=== PATIENT | male | born 1950 | race American Indian/Alaskan Native ===

== ENCOUNTER 2016-09-14 02:34 | Emergency (ER) | payer MEDICARE ==
[2016-09-14] MEDS: TYLENOL PO ONE (03:57)
[2016-09-14 04:00] LABS: Eosinophils % (Auto) 2.3 % (0.0-4.3); Hematocrit 42.3 % (35.5-45.6); Hemoglobin 13.8 gm/dl (11.8-15.2); Mean Corpuscular HGB Conc 33 % (32-34); Mean Corpuscular Hemoglobin 29 pg (28-32); Mean Corpuscular Volume 89 fl (84-94); Platelet Count 160 K/mm3 (140-440); Red Blood Count 4.78 M/mm3 (3.65-5.03); White Blood Count 4.9 K/mm3 (4.5-11.0)
[2016-09-14 04:13] LABS: Anion Gap 17 mmol/L; BUN/Creatinine Ratio 13.07; Blood Urea Nitrogen 17 mg/dL (9-20); Calcium 9.1 mg/dL (8.4-10.2); Carbon Dioxide 24 mmol/L (22-30); Chloride 101.4 mmol/L (98-107); Glucose 112 mg/dL (75-100); Potassium 3.8 mmol/L (3.6-5.0); Sodium 139 mmol/L (137-145)
--- NOTE | 2016-09-14 09:49 | Emergency Department Report ---
HPI - General Chief Complaint: Chest Pain Time Seen by Provider: 09/14/16 09:19 - HPI HPI: This is a 66-year-old Afro-[place] male presents the emergency department from home with a few complaints. Patient complains of presents with worsening right lower extremity phantom pain where he has a below-knee amputation. It was amputated in the past secondary to vascular insufficiency as he had previous stents in the leg. Patient has pain where his ankle would have been. He did not take anything for his discomfort prior to presentation. He also complains of a small amount of swelling to the left lower extremity around the ankle and bottom of the wilkins going on for the past few days as well. Finally patient complains of some generalized chest pain since yesterday. He has a past medical history of COPD without oxygen dependency, hypertension, high cholesterol, coronary artery disease with stents. He is in between primary care physicians at this time. His dental hygienist is through [facility]. No recent travel or sick contacts at home. ED Past Medical Hx - Past Medical History Hx Hypertension: Yes Hx COPD: Yes Additional medical history: High Cholesterol. angina/cardiac stents - Surgical History Hx Coronary Stent: Yes Additional Surgical History: Rt BKA. Cardiac Stents placed - Social History Smoking Status: Never Smoker Substance Use Type: None - Medications Home Medications: Home Medications Medication Instructions Recorded Confirmed Last Taken Type Nitroglycerin [Nitrostat] 0.4 mg SL Q5M 04/16/14 09/14/16 09/19/15 History 0.4mg Furosemide [Lasix] 40 mg PO DAILY #30 tablet 04/19/14 09/14/16 09/19/15 Rx 40mg Aspirin EC [Aspirin Enteric Coated 325 mg PO QDAY 09/19/15 09/14/16 09/19/15 History TAB] 325mg Carvedilol [Coreg] 25 mg PO BID 09/19/15 09/14/16 09/19/15 History 25mg Lisinopril [Zestril TAB] 20 mg PO QDAY 09/19/15 09/14/16 09/19/15 History 30mg AtorvaSTATin [Lipitor] 40 mg PO DAILY 02/07/16 09/14/16 Unknown History oxyCODONE /ACETAMINOPHEN [Percocet 1 tab PO Q6HR PRN #20 tablet 02/07/16 Unknown Rx 5/325] HYDROcodone/APAP 5-325 [Lakeside 1 each PO Q6HR PRN #12 tablet 09/14/16 Unknown Rx 5/325] Potassium 20 mg PO DAILY 09/14/16 09/14/16 Unknown History ED Review of Systems ROS: Stated complaint: CHEST/LEG PAIN Other details as noted in HPI Comment: All other systems reviewed and negative Constitutional: denies: chills, fever Eyes: denies: eye pain, eye discharge, vision change ENT: denies: ear pain, throat pain Respiratory: denies: cough, shortness of breath, wheezing Cardiovascular: chest pain, edema. denies: palpitations Gastrointestinal: denies: abdominal pain, nausea, diarrhea Genitourinary: denies: urgency, dysuria Musculoskeletal: arthralgia, myalgia. denies: back pain Skin: denies: rash, lesions Neurological: denies: headache, weakness, paresthesias Physical Exam - Physical Exam Vital Signs: Vital Signs 09/14/16 09/14/16 09/14/16 02:52 03:57 08:15 Temperature 98.8 F Pulse Rate 105 H Respiratory 18 20 Rate Blood Pressure 192/101 O2 Sat by Pulse 99 100 Oximetry 09/14/16 09/14/16 08:20 08:27 Temperature 98.2 F Pulse Rate 107 H Respiratory 14 Rate Blood Pressure 217/94 O2 Sat by Pulse 100 Oximetry Physical Exam: GENERAL: The patient is well-developed well-nourished. HEENT: Normocephalic. Atraumatic. Extraocular motions are intact. Patient has moist mucous membranes. Pupils equal reactive to light bilaterally. NECK: Supple. Trachea is midline. CHEST/LUNGS: Clear to auscultation. There is no respiratory distress noted. HEART/CARDIOVASCULAR: Regular. There is no tachycardia. There is no gallop rub or murmur. ABDOMEN: Abdomen is soft, nontender. Patient has normal bowel sounds. There is no abdominal distention. SKIN: There is no rash. There is no diaphoresis. NEURO: The patient is awake, alert, and oriented. The patient is cooperative. The patient has no focal neurologic deficits. The patient has normal speech. MUSCULOSKELETAL: There is no tenderness or deformity. Chronic right below-knee amputation. There is no limitation range of motion. There is no evidence of acute injury. ED Course Vital Signs 09/14/16 09/14/1609/14/17 02:52 03:57 08:15 Temperature 98.8 F Pulse Rate 105 H Respiratory 18 20 Rate Blood Pressure 192/101 O2 Sat by Pulse 99 100 Oximetry 09/14/16 09/14/16 08:20 08:27 Temperature 98.2 F Pulse Rate 107 H Respiratory 14 Rate Blood Pressure 217/94 O2 Sat by Pulse 100 Oximetry ED Medical Decision Making - Lab Data Result diagrams: 09/14/16 03:47 09/14/16 03:47 - EKG Data -: EKG Interpreted by Me EKG shows normal: sinus rhythm, axis, intervals, QRS complexes, ST-T waves (T- wave inversions to the lateral leads) Rate: normal - EKG Data When compared to previous EKG there are: no significant change Interpretation: unchanged when compared t (02/07/16) - Radiology Data Radiology results: report reviewed, image reviewed interpreted by me: Chest x-ray did not show any acute process. Heart is normal shape and size. No effusions. No pneumothorax. No signs of pneumonia seen. Left lower extremity venous Doppler is negative for DVT. VQ scan is negative for pulmonary embolism. - Medical Decision Making 66-year-old male presents to the emergency department with right lower extremity phantom limb pain, questionable left lower extremity swelling around the ankle, and some chest pain. The phantom limb pain was treated with IV pain medication with good relief. It still comes back but is greatly improved. I could not appreciate any significant left lower extremity swelling but the patient was sent for a venous Doppler to rule out a DVT and the venous Doppler was in fact negative for DVT. The patient's chest pain was evaluated with an EKG, chest x-ray and troponins. The EKG was unchanged from previous and did not show any acute ST elevation AL. The chest x-ray did not show any acute process. Patient's labs included negative troponins 3. He had a an elevated d -dimer so a VQ scan was done that was negative for pulmonary embolism. Patient' s chest pain is completely resolved at the beginning of his workup and he has been reevaluated multiple times over multiple hours and it has not returned. Due to the patient's most recent heart catheterization suggesting that the patient needs evaluation by a cardiothoracic surgeon due to triple-vessel disease, I contacted the patient's cardiology group. They say the patient is very compliant with his follow-ups and the PA has set him up for an appointment this Tuesday at 1:[address] Newell. All this information has been given to the patient. He says he is greatly improved and ready for discharge home. I do believe that the patient is safe for discharge home at this time. He understands to return to the emergency department with any worsening of symptoms or any acute distress. - Differential Diagnosis AL, PE, DVT, phantom limb syndrome Critical Care Time: No Critical care attestation.: If time is entered above; I have spent that time in minutes in the direct care of this critically ill patient, excluding procedure time. ED Disposition Clinical Impression: Phantom limb pain Hypertension Qualifiers: Hypertension type: essential hypertension Qualified Code(s): I10 - Essential ( primary) hypertension Chest pain Qualifiers: Chest pain type: unspecified Qualified Code(s): R07.9 - Chest pain, unspecified Disposition: DISCHARGED TO HOME OR SELFCARE Is pt being admited?: No Condition: Stable Instructions: Chest Pain (ED), Hypertension (ED) Additional Instructions: We have made to an appointment to see a dental hygienist at [facility], Dr. Newell, on Tuesday at 1:30 PM. It is also recommended that he follow-up with your primary care doctor. I have prescribed use some pain medication for your right leg pain. You've been prescribed a medication that is sedating. Therefore this medication cannot be mixed with alcohol, or taken prior to driving, working, or being responsible for children. Return to the emergency department with any worsening of your symptoms or any acute distress. Prescriptions: HYDROcodone/APAP 5-325 [Lakeside 5/325] 1 each PO Q6HR PRN #12 tablet PRN Reason: Pain Referrals: PRIMARY CAREMD [Primary Care Provider] - 3-5 Days LLOYD CARIAS MD [Staff Physician] - 09/17/16 1:30 pm Time of Disposition: 14:04
--- NOTE | 2016-09-14 10:11 | XRay Report ---
AP CHEST: HISTORY: chest pain AP view of the chest demonstrates a normal mediastinal and cardiac contour with clear lungs and normal bony and soft tissue structures. IMPRESSION: Unremarkable AP chest.
[2016-09-14] MEDS: MORPHINE IV ONE ×2 (10:20→13:05)
[2016-09-14] MEDS: NACL ONE (11:17)
[2016-09-14] MEDS: ZESTRIL PO ONE (12:12)
[2016-09-14] MEDS: COREG PO ONE (12:12)
--- NOTE | 2016-09-14 12:49 | Nuclear Medicine Report ---
LUNG SCAN, VENTILATION AND PERFUSION: Inhalation of Xenon gas demonstrates a normal distribution of the activity throughout both lungs. The wash out phases show no focal retention of activity. After injection of Technetium 99m macroaggregated albumin gamma camera imaging of the lungs in multiple projections demonstrates normal pulmonary contours with a homogeneous distribution of activity. No focal areas of perfusion deficiency are identified. IMPRESSION: Normal study.
[2016-09-14 13:29] VITALS: BP 166/74
--- NOTE | 2016-09-14 13:43 | Admit Criteria Form ---
Admission Criteria Documentation: CHEST PAIN Clinical Indications for Admission to Inpatient Care (Place 'X' for any and all applicable criteria): Admission is indicated for chest pain and ANY ONE of the following(1)(2)(3)(4)(5 ): [ ]I. Angina with acute coronary syndrome (Also use Myocardial Infarction or Angina guideline) [ ]II. Hemodynamic instability [ ]III. Angina needing acute intervention as indicated by ALL of the following( 11)(12): [ ]a) Unstable angina is present as indicated by angina that is ANY ONE of the following: [ ]i) New onset [ ]ii) Nocturnal [ ]iii) Prolonged at rest [ ]iv) Progressive [ ]b) Angina warrants acute intervention as indicated by ANY ONE of the following: [ ]i) Recurrent angina (e.g, not responding as previously to treatment) [ ]ii) Angina at rest or with low-level activities despite initial medical therapy [ ]iii) New or presumably new ST-segment depression on ECG [ ]iv) Signs or symptoms of heart failure (eg, dyspnea, pulmonary edema) [ ]v) New or worsening mitral regurgitation [ ]vi) Hemodynamic instability [ ]vii) Dangerous arrhythmia (eg, sustained ventricular tachycardia) [ ]viii) History of percutaneous coronary intervention within 6 months [ ]ix) History of coronary artery bypass graft surgery [ ]x) VICKI risk score of 2 or greater[A] [ ]xi) History of Diabetes(14) [ ]xii) High-risk cardiac ischemia findings on noninvasive testing (e.g, echocardiogram, treadmill testing, nuclear scan) [ ]xiii) Chronic renal insufficiency (ie, estimated GFR less than 60 mL/min/1.732m) [ ]xiv) Left ventricular ejection fraction less than 40% [ ]IV. Evidence of NM (eg, cardiac biomarkers positive, ST-segment elevation on ECG) also use Myocardial Infarction Criteria Form. [ ]V. Pulmonary edema [ ]. Respiratory distress [ ]VII. Chest pain indicative of serious diagnosis other than coronary artery disease (eg, aortic dissection) [ ]VIII. Contraindications and/or Inappropriate clinical situations for Observational Care in patients with Chest Pain, when ANY ONE of the following is required: [ ]a) Patient with risk factor for pulmonary embolism, acute coronary syndrome and myocardial infarction (18) [ ]b) Patient with Pulmonary embolism require an average LOS of 4.3 days, therefore emergency department observation management is inappropriate 18,23 [ ]c) Painful condition/s in the elderly, have the highest rate of recidivism after emergency department observation management (10.8%) 20,21,22 [ ]d) Elevated cardiac biomarker requires intensive and exhaustive care (19) [ ]IX. General contraindications and/or Inappropriate clinical situations for Observational Care in patients with Chest Pain, when ANY ONE of the following is required: [ ]a) Prediction of prolongation of LOS based on ANY ONE of the following may be considered as a contraindication for observational care 2, 3, 4, 5, 6, 7, 8, 9, 10, 11 [ ]i) Age > 65 yrs. [ ]ii) Patient arriving by ambulance [ ]iii) Patient with high acuity [ ]iv) Patient requiring vital sign monitoring [ ]v) Patient on IV medication [ ]b) Systolic blood pressures 180mmHg 3,12 [ ]c) Patient with altered mental status including delirium and other alteration of consciousness, (3) [ ]d) Patient whose discharge disposition will be to a [place] [facility] home or rehabilitation home should not be managed in Emergency Department Observation Unit. CMS rule requires 3 days hospital stay before such placement. 3,13 [ ]e) Patient with failure to thrive due to broad array of etiologies 3,16,17 [ ]f) Inability to ambulate 3,14 Extended stay beyond goal length of stay may be needed for (1)(28): [ ]a) Specific condition diagnosed after evaluation (eg, pulmonary embolism, aortic dissection) [ ]b) Unstable angina [ ]c) Continued suspicion of acute coronary syndrome with inability to complete needed cardiac evaluation (eg, patient clinically unable to undergo stress testing) [ ]d) Myocardial infarction (Contents from ANGINA and CHEST PAIN clinical indications for admission to inpatient care have been integrated in this form) The original [employer] content created by [employer] has been revised. The portions of the content which have been revised are identified through the use of italic text or in bold, and [employer] [facility] has neither reviewed nor approved the modified material. All other unmodified content is copyright [employer]. Please see references footnoted in the original [employer] edition 2016
--- NOTE | 2016-09-15 08:22 | Vascular Lab Report ---
Left Lower Extremity Venous Duplex Study: Reason for Exam: Left leg pain. Comments on the Right: A limited duplex study was done of the proximal veins of the right lower extremity. All veins visualized are freely compressible without evidence of internal echogenicity. Flow is spontaneous and phasic throughout. No evidence of acute or chronic thrombus is seen in any of the vessels visualized. Comments on the Left: All veins visualized are freely compressible without evidence of internal echogenicity. Flow is spontaneous and phasic throughout. No evidence of acute or chronic thrombus is seen in any of the vessels visualized. Impression: No evidence of acute or chronic deep venous thrombosis in the left lower extremity.
== END 2016-09-14 14:33 | disposition home or self-care (01) ==
LOC: ED 02:34
DX: G54.6 Phantom limb syndrome with pain (principal); I10 Essential (primary) hypertension; R07.89 Other chest pain; J44.9 Chronic obstructive pulmonary disease, unspecified; E78.00 Pure hypercholesterolemia, unspecified; Z95.5 Presence of coronary angioplasty implant and graft; Z79.82 Long term (current) use of aspirin
CPT/HCPCS: 36415; 71010; 78582; 80048; 84484; 85025; 85379; 93005; 93010; 93971; 96374; 96376; 99285; A9540; A9558; J2270

== ENCOUNTER 2016-12-07 21:01 | Inpatient (IN) | payer MEDICARE ==
[2016-12-07 21:39] LABS: Hematocrit 42.6 % (35.5-45.6); Mean Corpuscular HGB Conc 33 % (32-34); Mean Corpuscular Hemoglobin 29 pg (28-32); Mean Corpuscular Volume 88 fl (84-94); Platelet Count 236 K/mm3 (140-440); Red Blood Count 4.86 M/mm3 (3.65-5.03); White Blood Count 16.4 K/mm3 (4.5-11.0)
[2016-12-07 22:00] LABS: Anion Gap 21 mmol/L; BUN/Creatinine Ratio 29.28; Blood Urea Nitrogen 41 mg/dL (9-20); Calcium 9.6 mg/dL (8.4-10.2); Carbon Dioxide 23 mmol/L (22-30); Chloride 101.5 mmol/L (98-107); Glucose 120 mg/dL (75-100); Potassium 3.8 mmol/L (3.6-5.0); Sodium 142 mmol/L (137-145)
[2016-12-07 22:40] LABS: Basophils % (Manual) 0 % (0.0-1.8); Blastocytes % (Manual) 0 %; Eosinophils % (Manual) 0 % (0.0-4.3)
[2016-12-07 22:42] LABS: RBC Morphology Normal
[2016-12-07 22:43] LABS: Diff Status Complete; Platelet Estimate Consistent w Auto
[2016-12-08 01:48] LABS: Bilirubin,Urine NEG (Negative); Blood,Urine NEG (Negative); Ketones,Urine NEG (Negative); Leukocyte Esterase,Urine NEG (Negative); Mucus,Urine FEW /HPF; Nitrite,Urine NEG (Negative); Protein,Urine <15 mg/dL mg/dL (Negative); Urobilinogen,Urine < 2.0 mg/dL (<2.0)
[2016-12-08] MEDS ORDERED: NACL 0.9% 500 ML 500 ML IV ONE (01:57)
[2016-12-08] MEDS ORDERED: TORADOL IV ONE (01:57)
[2016-12-08] MEDS ORDERED: DILAUDID IV ONE (01:57)
--- NOTE | 2016-12-08 02:00 | Emergency Department Report ---
ED General Adult HPI - General Chief complaint: Extremity Problem,Nontraumatic Stated complaint: LEG PAIN Time Seen by Provider: 12/08/16 01:48 Source: patient, family, RN notes reviewed Mode of arrival: Ambulatory Limitations: Physical Limitation - History of Present Illness Initial comments: This is a 66-year-old male. He is previously unknown to me. Past medical history includes status post right lower extremity above-knee amputation, patient is hard of hearing, presumed gout, hypertension and high cholesterol. The patient also has a history of peripheral artery disease. The patient presents to the ER with left ankle pain and swelling which is nontraumatic. The patient is a poor historian, and in significant pain, and has difficulty communicating. History is obtained by speaking to the patient's daughter. As for the patient's daughter, the patient was seen by his primary care doctor, and treated presumptively for gout. There is no headache, neck pain, chest pain , abdominal pain or shortness of breath. As per daughter, there are no dietary indiscretions. Patient and family cannot state whether or not this is similar to prior episodes of gout. They cannot describe the nature of the pain, although pain seems to worsen with physical range of motion and decreases with rest. -: Gradual Location: left, lower extremity Severity scale (0 -10): 10 Consistency: other (per hpi) Improves with: other (per hpi) Worsens with: other (per hpi) Associated Symptoms: malaise, weakness. denies: confusion, chest pain, cough, headaches, loss of appetite - Related Data Home Medications Medication Instructions Recorded Confirmed Last Taken Nitroglycerin [Nitrostat] 0.4 mg SL Q5M 04/16/14 09/14/16 09/19/15 0.4mg Aspirin EC [Aspirin Enteric Coated 325 mg PO QDAY 09/19/15 09/14/16 09/19/15 TAB] 325mg Carvedilol [Coreg] 25 mg PO BID 09/19/15 09/14/16 09/19/15 25mg Lisinopril [Zestril TAB] 20 mg PO QDAY 09/19/15 09/14/16 09/19/15 30mg AtorvaSTATin [Lipitor] 40 mg PO DAILY 02/07/16 09/14/16 Unknown Potassium 20 mg PO DAILY 09/14/16 09/14/16 Unknown Previous Rx's Medication Instructions Recorded Last Taken Type Furosemide [Lasix] 40 mg PO DAILY #30 tablet 04/19/14 09/19/15 Rx 40mg oxyCODONE /ACETAMINOPHEN [Percocet 1 tab PO Q6HR PRN #20 tablet 02/07/16 Unknown Rx 5/325] HYDROcodone/APAP 5-325 [[place] 1 each PO Q6HR PRN #12 tablet 09/14/16 Unknown Rx 5/325] Allergies Allergy/AdvReac Type Severity Reaction Status Date / Time No Known Allergies Allergy Verified 04/15/14 18:09 ED Review of Systems ROS: Stated complaint: LEG PAIN Other details as noted in HPI Constitutional: malaise. denies: fever Eyes: denies: vision change Respiratory: denies: cough, SOB with exertion Cardiovascular: denies: chest pain Gastrointestinal: denies: abdominal pain Genitourinary: as per HPI Musculoskeletal: joint swelling, arthralgia, myalgia Skin: denies: lesions Neurological: weakness Psychiatric: anxiety ED Past Medical Hx - Past Medical History Previous Medical History?: Yes Hx Hypertension: Yes Hx COPD: Yes Additional medical history: High Cholesterol. angina/cardiac stents - Surgical History Past Surgical History?: Yes Hx Coronary Stent: Yes Additional Surgical History: Rt BKA. Cardiac Stents placed - Social History Smoking Status: Never Smoker Substance Use Type: None - Medications Home Medications: Home Medications Medication Instructions Recorded Confirmed Last Taken Type Nitroglycerin [Nitrostat] 0.4 mg SL Q5M 04/16/14 09/14/16 09/19/15 History 0.4mg Furosemide [Lasix] 40 mg PO DAILY #30 tablet 04/19/14 09/14/16 09/19/15 Rx 40mg Aspirin EC [Aspirin Enteric Coated 325 mg PO QDAY 09/19/15 09/14/16 09/19/15 History TAB] 325mg Carvedilol [Coreg] 25 mg PO BID 09/19/15 09/14/16 09/19/15 History 25mg Lisinopril [Zestril TAB] 20 mg PO QDAY 09/19/15 09/14/16 09/19/15 History 30mg AtorvaSTATin [Lipitor] 40 mg PO DAILY 02/07/16 09/14/16 Unknown History oxyCODONE /ACETAMINOPHEN [Percocet 1 tab PO Q6HR PRN #20 tablet 02/07/16 Unknown Rx 5/325] HYDROcodone/APAP 5-325 [[place] 1 each PO Q6HR PRN #12 tablet 09/14/16 Unknown Rx 5/325] Potassium 20 mg PO DAILY 09/14/16 09/14/16 Unknown History ED Physical Exam - General Limitations: Physical Limitation General appearance: alert, in distress - Head Head exam: Present: atraumatic, normocephalic - Eye Eye exam: Present: normal appearance - ENT ENT exam: Present: normal exam, normal orophraynx, mucous membranes moist, normal external ear exam - Neck Neck exam: Present: normal inspection, full ROM. Absent: tenderness, meningismus - Respiratory Respiratory exam: Present: normal lung sounds bilaterally. Absent: respiratory distress, wheezes, rales, rhonchi, stridor, chest wall tenderness, accessory muscle use, decreased breath sounds, prolonged expiratory - Cardiovascular Cardiovascular Exam: Present: normal rhythm, tachycardia, normal heart sounds. Absent: systolic murmur, diastolic murmur, rubs, gallop - GI/Abdominal GI/Abdominal exam: Present: soft, normal bowel sounds. Absent: distended, tenderness, guarding, rebound, rigid, pulsatile mass - Rectal Rectal exam: Present: deferred - Extremities Exam Extremities exam: Present: normal capillary refill, pedal edema, joint swelling , calf tenderness, other (the right lower extremity is status post above knee amputation. There are 2+ pulses noted in the bilateral upper extremities, and femoral regions. A posterior tibial pulses appreciated on Doppler interrogation of left lower extremity. Compartments are soft. There is pain exquisitely with passive range of motion of the ankle. There is no pain with range of motion of the knee.) - Back Exam Back exam: Present: normal inspection. Absent: tenderness, CVA tenderness (R), CVA tenderness (L), muscle spasm, paraspinal tenderness, vertebral tenderness - Neurological Exam Neurological exam: Present: alert, other (Extraocular movements intact. Tongue midline. No facial droop. Facial sensation intact to light touch in the V1, V2 , V3 distribution bilaterally. 5 and 5 strength in 4 extremities.. Sensation is intact to light touch in 4 extremities.). Absent: motor sensory deficit - Psychiatric Psychiatric exam: Present: normal affect, normal mood - Skin Skin exam: Present: warm, dry, intact, normal color. Absent: rash ED Course Vital Signs 12/07/16 12/08/16 12/08/16 21:25 01:31 02:12 Temperature 97.9 F Pulse Rate 110 H 106 H Respiratory 20 22 22 Rate Blood Pressure 191/107 132/74 [Right] O2 Sat by Pulse 98 100 Oximetry 12/08/16 12/08/16 12/08/16 02:13 02:57 02:58 Temperature 98.5 F Pulse Rate 92 H Respiratory 22 20 Rate Blood Pressure 157/89 [Right] O2 Sat by Pulse 98 Oximetry 12/08/16 04:37 Temperature Pulse Rate 97 H Respiratory 20 Rate Blood Pressure 152/64 [Right] O2 Sat by Pulse 99 Oximetry - Reevaluation(s) Reevaluation #1: 12/08/16 03:46 Differential diagnosis: Septic arthritis, acute gouty flare, nonspecific arthritis Assessment and plan: 66-year-old male with left ankle pain, swelling, leukocytosis. He has pain with passive range of motion. The compartments are soft. Pulses are noted. Distal extremity warm. Unlikely to be arterial insufficiency. Patient is treated aggressively with IV pain medication. He still has refractory pain. Extensive discussion had with the patient and his daughter. The patient's daughter gives informed consent for left ankle arthrocentesis. The risks, benefits, alternatives are discussed. The specific risks of infection, arterial injury, laceration, worsening pain are discussed. She gives verbal and written consent. Arthrocentesis is performed. Results are pending. Reevaluation #2: 12/08/16 05:03 left ankle arthrocentesis inconclusive, however MSU noted. Antibiotics have been ordered. Orthopedics paged Dr. Dickson accepts the patient to her service. - Consultations Consultation #1: 12/08/16 05:49 case is discussed with orthopedic surgery, Dr. Lopez, who agrees with plan, and he will see the patient is a consult. - Joint Aspiration/Injection Consent Obtained: verbal consent, written consent, emergent situation Time Out Performed: Yes Indications: R/O septic arthritis Side of Body: left Joint Aspirated: ankle Ultrasound Guidance: Yes Skin Prep: sterile prep and drape (betadyne, sterile gloves) Local Anesthesia Used: with Epi Amount of Anesthesia Used (mls): 5 Needle Size Used: Other (21 g) Syringe Size Used: Other (3 cc) Fluid Obtained: viscous Total Fluid Obtained (mls): 3 Patient Tolerated Procedure: well Complications: pain ED Medical Decision Making - Lab Data Result diagrams: 12/07/16 21:31 12/07/16 21:31 Vital Signs 12/07/16 12/08/16 12/08/16 21:25 01:31 02:12 Temperature 97.9 F Pulse Rate 110 H 106 H Respiratory 20 22 22 Rate Blood Pressure 191/107 132/74 [Right] O2 Sat by Pulse 98 100 Oximetry 12/08/16 12/08/16 12/08/16 02:13 02:57 02:58 Temperature 98.5 F Pulse Rate 92 H Respiratory 22 20 Rate Blood Pressure 157/89 [Right] O2 Sat by Pulse 98 Oximetry Lab Results 12/07/16 12/07/16 12/07/16 Range/Units 21:31 21:31 21:31 WBC 16.4 H (4.5-11.0) K/mm3 RBC 4.86 (3.65-5.03) M/mm3 Hgb 14.0 (11.8-15.2) gm/dl Hct 42.6 (35.5-45.6) % MCV 88 (84-94) fl MCH 29 (28-32) pg MCHC 33 (32-34) % RDW 14.0 (13.2-15.2) % Plt Count 236 (140-440) K/mm3 Add Manual Diff Complete Total Counted 100 Seg Neuts % (Manual) 83.0 H (40.0-70.0) % Band Neutrophils % 0 % Lymphocytes % (Manual) 8.0 L (13.4-35.0) % Reactive Lymphs % (Man) 0 % Monocytes % (Manual) 9.0 H (0.0-7.3) % Eosinophils % (Manual) 0 (0.0-4.3) % Basophils % (Manual) 0 (0.0-1.8) % Metamyelocytes % 0 % Myelocytes % 0 % Promyelocytes % 0 % Blast Cells % 0 % Nucleated RBC % Not Reportable Seg Neutrophils # Man 13.6 H (1.8-7.7) K/mm3 Band Neutrophils # 0.0 K/mm3 Lymphocytes # (Manual) 1.3 (1.2-5.4) K/mm3 Abs React Lymphs (Man) 0.0 K/mm3 Monocytes # (Manual) 1.5 H (0.0-0.8) K/mm3 Eosinophils # (Manual) 0.0 (0.0-0.4) K/mm3 Basophils # (Manual) 0.0 (0.0-0.1) K/mm3 Metamyelocytes # 0.0 K/mm3 Myelocytes # 0.0 K/mm3 Promyelocytes # 0.0 K/mm3 Blast Cells # 0.0 K/mm3 WBC Morphology Not Reportable Hypersegmented Neuts Not Reportable Hyposegmented Neuts Not Reportable Hypogranular Neuts Not Reportable Smudge Cells Not Reportable Toxic Granulation Not Reportable Toxic Vacuolation Not Reportable Dohle Bodies Not Reportable Pelger-Huet Anomaly Not Reportable Tonie Rods Not Reportable Platelet Estimate Consistent w auto Clumped Platelets Not Reportable Plt Clumps, EDTA Not Reportable Large Platelets Not Reportable Giant Platelets Not Reportable Platelet Satelliting Not Reportable Plt Morphology Comment Not Reportable RBC Morphology Normal Dimorphic RBCs Not Reportable Polychromasia Not Reportable Hypochromasia Not Reportable Poikilocytosis Not Reportable Anisocytosis Not Reportable Microcytosis Not Reportable Macrocytosis Not Reportable Spherocytes Not Reportable Pappenheimer Bodies Not Reportable Sickle Cells Not Reportable Target Cells Not Reportable Tear Drop Cells Not Reportable Ovalocytes Not Reportable Helmet Cells Not Reportable Baron-Leando Bodies Not Reportable [place] Rings Not Reportable [place] Cells Not Reportable Bite Cells Not Reportable Crenated Cell Not Reportable Elliptocytes Not Reportable Acanthocytes (Spur) Not Reportable Rouleaux Not Reportable Hemoglobin C Crystals Not Reportable Schistocytes Not Reportable Malaria parasites Not Reportable ESR 47 (0-20) mm/Hr Bam Bodies Not Reportable Hem Pathologist Commnt No PT (12.2-14.9) Sec. INR (0.87-1.13) Sodium 142 (137-145) mmol/L Potassium 3.8 (3.6-5.0) mmol/L Chloride 101.5 (98-107) mmol/L Carbon Dioxide 23 (22-30) mmol/L Anion Gap 21 mmol/L BUN 41 H (9-20) mg/dL Creatinine 1.4 (0.8-1.5) mg/dL Estimated GFR > 60 ml/min BUN/Creatinine Ratio 29.28 % Glucose 120 H (75-100) mg/dL Lactic Acid (0.7-2.0) mmol/L Uric Acid 12.0 H (3.5-7.6) mg/dL Calcium 9.6 (8.4-10.2) mg/dL Total Creatine Kinase (55-170) units/L Urine Color (Yellow) Urine Turbidity (Clear) Urine pH (5.0-7.0) Ur Specific [place] (1.003-1.030) Urine Protein (Negative) mg/dL Urine Glucose (UA) (Negative) mg/dL Urine Ketones (Negative) mg/dL Urine Blood (Negative) Urine Nitrite (Negative) Urine Bilirubin (Negative) Urine Urobilinogen (<2.0) mg/dL Ur Leukocyte Esterase (Negative) Urine WBC (Auto) (0.0-6.0) /HPF Urine RBC (Auto) (0.0-6.0) /HPF U Epithel Cells (Auto) (0-13.0) /HPF Hyaline Casts /LPF Urine Mucus /HPF 12/08/16 12/08/16 12/08/16 Range/Units 01:26 02:08 02:08 WBC (4.5-11.0) K/mm3 RBC (3.65-5.03) M/mm3 Hgb (11.8-15.2) gm/dl Hct (35.5-45.6) % MCV (84-94) fl MCH (28-32) pg MCHC (32-34) % RDW (13.2-15.2) % Plt Count (140-440) K/mm3 Add Manual Diff Total Counted Seg Neuts % (Manual) (40.0-70.0) % Band Neutrophils % % Lymphocytes % (Manual) (13.4-35.0) % Reactive Lymphs % (Man) % Monocytes % (Manual) (0.0-7.3) % Eosinophils % (Manual) (0.0-4.3) % Basophils % (Manual) (0.0-1.8) % Metamyelocytes % % Myelocytes % % Promyelocytes % % Blast Cells % % Nucleated RBC % Seg Neutrophils # Man (1.8-7.7) K/mm3 Band Neutrophils # K/mm3 Lymphocytes # (Manual) (1.2-5.4) K/mm3 Abs React Lymphs (Man) K/mm3 Monocytes # (Manual) (0.0-0.8) K/mm3 Eosinophils # (Manual) (0.0-0.4) K/mm3 Basophils # (Manual) (0.0-0.1) K/mm3 Metamyelocytes # K/mm3 Myelocytes # K/mm3 Promyelocytes # K/mm3 Blast Cells # K/mm3 WBC Morphology Hypersegmented Neuts Hyposegmented Neuts Hypogranular Neuts Smudge Cells Toxic Granulation Toxic Vacuolation Dohle Bodies Pelger-Huet Anomaly Tonie Rods Platelet Estimate Clumped Platelets Plt Clumps, EDTA Large Platelets Giant Platelets Platelet Satelliting Plt Morphology Comment RBC Morphology Dimorphic RBCs Polychromasia Hypochromasia Poikilocytosis Anisocytosis Microcytosis Macrocytosis Spherocytes Pappenheimer Bodies Sickle Cells Target Cells Tear Drop Cells Ovalocytes Helmet Cells Baron-Leando Bodies [place] Rings Vandana Cells Bite Cells Crenated Cell Elliptocytes Acanthocytes (Spur) Rouleaux Hemoglobin C Crystals Schistocytes Malaria parasites ESR (0-20) mm/Hr Bam Bodies Hem Pathologist Commnt PT 14.0 (12.2-14.9) Sec. INR 1.09 (0.87-1.13) Sodium (137-145) mmol/L Potassium (3.6-5.0) mmol/L Chloride (98-107) mmol/L Carbon Dioxide (22-30) mmol/L Anion Gap mmol/L BUN (9-20) mg/dL Creatinine (0.8-1.5) mg/dL Estimated GFR ml/min BUN/Creatinine Ratio % Glucose (75-100) mg/dL Lactic Acid 2.10 H* (0.7-2.0) mmol/L Uric Acid (3.5-7.6) mg/dL Calcium (8.4-10.2) mg/dL Total Creatine Kinase (55-170) units/L Urine Color Yellow (Yellow) Urine Turbidity Clear (Clear) Urine pH 5.0 (5.0-7.0) Ur Specific [place] 1.020 (1.003-1.030) Urine Protein <15 mg/dl (Negative) mg/dL Urine Glucose (UA) Neg (Negative) mg/dL Urine Ketones Neg (Negative) mg/dL Urine Blood Neg (Negative) Urine Nitrite Neg (Negative) Urine Bilirubin Neg (Negative) Urine Urobilinogen < 2.0 (<2.0) mg/dL Ur Leukocyte Esterase Neg (Negative) Urine WBC (Auto) 1.0 (0.0-6.0) /HPF Urine RBC (Auto) 4.0 (0.0-6.0) /HPF U Epithel Cells (Auto) < 1.0 (0-13.0) /HPF Hyaline Casts 5 /LPF Urine Mucus Few /HPF 12/08/16 Range/Units 02:08 WBC (4.5-11.0) K/mm3 RBC (3.65-5.03) M/mm3 Hgb (11.8-15.2) gm/dl Hct (35.5-45.6) % MCV (84-94) fl MCH (28-32) pg MCHC (32-34) % RDW (13.2-15.2) % Plt Count (140-440) K/mm3 Add Manual Diff Total Counted Seg Neuts % (Manual) (40.0-70.0) % Band Neutrophils % % Lymphocytes % (Manual) (13.4-35.0) % Reactive Lymphs % (Man) % Monocytes % (Manual) (0.0-7.3) % Eosinophils % (Manual) (0.0-4.3) % Basophils % (Manual) (0.0-1.8) % Metamyelocytes % % Myelocytes % % Promyelocytes % % Blast Cells % % Nucleated RBC % Seg Neutrophils # Man (1.8-7.7) K/mm3 Band Neutrophils # K/mm3 Lymphocytes # (Manual) (1.2-5.4) K/mm3 Abs React Lymphs (Man) K/mm3 Monocytes # (Manual) (0.0-0.8) K/mm3 Eosinophils # (Manual) (0.0-0.4) K/mm3 Basophils # (Manual) (0.0-0.1) K/mm3 Metamyelocytes # K/mm3 Myelocytes # K/mm3 Promyelocytes # K/mm3 Blast Cells # K/mm3 WBC Morphology Hypersegmented Neuts Hyposegmented Neuts Hypogranular Neuts Smudge Cells Toxic Granulation Toxic Vacuolation Dohle Bodies Pelger-Huet Anomaly Tonie Rods Platelet Estimate Clumped Platelets Plt Clumps, EDTA Large Platelets Giant Platelets Platelet Satelliting Plt Morphology Comment RBC Morphology Dimorphic RBCs Polychromasia Hypochromasia Poikilocytosis Anisocytosis Microcytosis Macrocytosis Spherocytes Pappenheimer Bodies Sickle Cells Target Cells Tear Drop Cells Ovalocytes Helmet Cells Baron-Leando Bodies [place] Rings Vandana Cells Bite Cells Crenated Cell Elliptocytes Acanthocytes (Spur) Rouleaux Hemoglobin C Crystals Schistocytes Malaria parasites ESR (0-20) mm/Hr Bam Bodies Hem Pathologist Commnt PT (12.2-14.9) Sec. INR (0.87-1.13) Sodium (137-145) mmol/L Potassium (3.6-5.0) mmol/L Chloride (98-107) mmol/L Carbon Dioxide (22-30) mmol/L Anion Gap mmol/L BUN (9-20) mg/dL Creatinine (0.8-1.5) mg/dL Estimated GFR ml/min BUN/Creatinine Ratio % Glucose (75-100) mg/dL Lactic Acid (0.7-2.0) mmol/L Uric Acid (3.5-7.6) mg/dL Calcium (8.4-10.2) mg/dL Total Creatine Kinase 531 H (55-170) units/L Urine Color (Yellow) Urine Turbidity (Clear) Urine pH (5.0-7.0) Ur Specific [place] (1.003-1.030) Urine Protein (Negative) mg/dL Urine Glucose (UA) (Negative) mg/dL Urine Ketones (Negative) mg/dL Urine Blood (Negative) Urine Nitrite (Negative) Urine Bilirubin (Negative) Urine Urobilinogen (<2.0) mg/dL Ur Leukocyte Esterase (Negative) Urine WBC (Auto) (0.0-6.0) /HPF Urine RBC (Auto) (0.0-6.0) /HPF U Epithel Cells (Auto) (0-13.0) /HPF Hyaline Casts /LPF Urine Mucus /HPF - Radiology Data Radiology results: image reviewed interpreted by me: left ankle x ray negative soft tissue swelling noted Critical care attestation.: If time is entered above; I have spent that time in minutes in the direct care of this critically ill patient, excluding procedure time. ED Disposition Clinical Impression: Left ankle pain Disposition: OP ADMITTED IP TO THIS HOSP Is pt being admited?: Yes Condition: Good
[2016-12-08] MEDS ORDERED: XYLOCAINE 2%/ EPI 1:200,000 INFILTRATI ONE (03:00)
[2016-12-08] MEDS ORDERED: SUBLIMAZE IV ONE (03:00)
[2016-12-08 03:37] LABS: INR 1.09 (0.87-1.13)
[2016-12-08] MEDS ORDERED: VANCOMYCIN VIAL IV ONE (03:49)
[2016-12-08] MEDS ORDERED: ROCEPHIN/NS 2 GM/100 ML 2 GM/100 ML BAG IV ONE (03:49)
[2016-12-08] MEDS ORDERED: VANCOMYCIN PHARMACY TO DOSE IV SCH (04:00)
[2016-12-08] MEDS ORDERED: VANCOMYCIN 1,500 MG in NACL 0.9% 500 ML 500 ML IV ONE (04:00)
[2016-12-08 04:33] LABS: Basophils Body Fluid TNR %; Eosinophils Body Fluid TNR %; Lymphocytes BF TNR %; Monocytes Body Fluid TNR %; Reactive Lymph Body Fluid TNR %; Seg Neutrophils Body Fluid TNR %
[2016-12-08 04:48] LABS: Needle-Like MANY EXTRACELLULAR
[2016-12-08] MEDS ORDERED: TYLENOL PO PRN (05:20)
[2016-12-08] MEDS ORDERED: ZOFRAN IV PRN (05:20)
[2016-12-08] MEDS ORDERED: MILK OF MAGNESIA PO PRN (05:20)
[2016-12-08] MEDS ORDERED: DULCOLAX PR PRN (05:20)
--- NOTE | 2016-12-08 05:23 | History and Physical Report ---
History of Present Illness Date of examination: 12/08/16 History of present illness: 66 history of hypertension, CHF, hyperlipidemia comes emergency room with complaints of left foot pain. He saw his primary care last week who gave him pain medication for presumptive diagnosis of gout, he was told that if his swelling worsened he was to go to the emergency room. The patient is unable to bear weight, swelling worsened and also the painstaking to the emergency room for evaluation Patient denies chest pain, palpitation, shortness of breath, cough, abdominal pain, hematochezia, dysuria, frequency, focal weakness, dysarthria, fever chills , polydipsia polyuria, hot or cold intolerance, easy bruisability, or rash or bleeding from mucosal membrane, rhinorrhea, epistaxis, earache, tinnitus, blurry vision, eye discharge, anxiety, depression. Other review of systems negative PAST SURGICAL HISTORY: Right AKA SOCIAL HISTORY: Denies alcohol, tobacco, drugs FAMILY HISTORY: Hypertension Medications and Allergies Allergies Allergy/AdvReac Type Severity Reaction Status Date / Time No Known Allergies Allergy Verified 04/15/14 18:09 Home Medications Medication Instructions Recorded Confirmed Last Taken Type Nitroglycerin [Nitrostat] 0.4 mg SL Q5M 04/16/14 12/09/16 2 Months Ago History Furosemide [Lasix] 40 mg PO DAILY #30 tablet 04/19/14 12/09/16 1 Day Ago Rx Aspirin EC [Aspirin Enteric Coated 325 mg PO QDAY 09/19/15 12/09/16 1 Day Ago History TAB] Carvedilol [Coreg] 25 mg PO BID 09/19/15 12/09/16 1 Day Ago History Lisinopril [Zestril TAB] 20 mg PO QDAY 09/19/15 12/09/16 1 Day Ago History AtorvaSTATin [Lipitor] 40 mg PO DAILY 02/07/16 12/09/16 1 Day Ago History Potassium 20 mg PO DAILY 09/14/16 12/09/16 1 Day Ago History Active Meds: Active Medications Vancomycin HCl 1,500 mg/ (Sodium Chloride) 530 mls @ 333.333 mls/hr IV ONCE.ED ONE Stop: 12/08/16 05:35 Vancomycin HCl (Vancomycin Pharmacy To Dose) 1 each IV PKCONSULT SIRI PRN Reason: Protocol Exam - Physical Exam Narrative exam: Gen. appearance: Patient lying in bed, no apparent distress HEENT: Normocephalic, atraumatic, pupils equally round and reactive to light, extraocular movement intact, and no sclericterus,. No JVD or thyromegaly or nodule,neck supple, no carotid bruit ,mucous membranes moist, no exudate or erythema Heart: S1, S2, regular rate and rhythm Lungs: Clear to auscultation bilaterally, breathing comfortable Abdomen: Positive bowel sounds, nontender, nondistended, no organomegaly Extremity: Left swelling of the foot, tender to touch, no erythema, right AKA No cyanosis, clubbing Skin: No rash, nodules, warm, dry Neuro: Oriented 3, cranial nerves II-12 intact, speech is fluent, motor and sensory intact - Constitutional Vitals: Temp Pulse Resp BP Pulse Ox 98.5 F 97 H 20 152/64 99 12/08/16 02:58 12/08/16 04:37 12/08/16 04:37 12/08/16 04:37 12/08/16 04:37 Results - Labs CBC & Chem 7: 12/09/16 07:03 12/10/16 03:34 Labs: Abnormal lab results 12/07/16 12/07/16 12/07/16 Range/Units 21:31 21:31 21:31 WBC 16.4 H (4.5-11.0) K/mm3 Seg Neuts % (Manual) 83.0 H (40.0-70.0) % Lymphocytes % (Manual) 8.0 L (13.4-35.0) % Monocytes % (Manual) 9.0 H (0.0-7.3) % Seg Neutrophils # Man 13.6 H (1.8-7.7) K/mm3 Monocytes # (Manual) 1.5 H (0.0-0.8) K/mm3 BUN 41 H (9-20) mg/dL Glucose 120 H (75-100) mg/dL Lactic Acid (0.7-2.0) mmol/L Uric Acid 12.0 H (3.5-7.6) mg/dL Total Creatine Kinase (55-170) units/L C-Reactive Protein 2.80 H (0.00-1.30) mg/dL 12/08/16 12/08/16 Range/Units 02:08 02:08 WBC (4.5-11.0) K/mm3 Seg Neuts % (Manual) (40.0-70.0) % Lymphocytes % (Manual) (13.4-35.0) % Monocytes % (Manual) (0.0-7.3) % Seg Neutrophils # Man (1.8-7.7) K/mm3 Monocytes # (Manual) (0.0-0.8) K/mm3 BUN (9-20) mg/dL Glucose (75-100) mg/dL Lactic Acid 2.10 H* (0.7-2.0) mmol/L Uric Acid (3.5-7.6) mg/dL Total Creatine Kinase 531 H (55-170) units/L C-Reactive Protein (0.00-1.30) mg/dL Assessment and Plan follow ankle x-ray Acute gouty attack Hypertension CHF, stable Hyperlipidemia Admits medicine Start NSAIDs, consult orthopedic Continue appropriate outpatient medication, surgery to prophylaxis
[2016-12-08] MEDS ORDERED: MOTRIN PO SCH (06:00)
--- NOTE | 2016-12-08 08:22 | Admit Criteria Form ---
Admission Criteria Documentation: MUSCULOSKELETAL DISEASE GRG Clinical Indications for Admission to Inpatient Care (Place 'X' for any and all applicable criteria): Hospital admission is needed for appropriate care of the patient because of 1 or more of the following: [ ]I. Fracture, dislocation, or other musculoskeletal injury requiring inpatient care(medical) as indicated by 1 or more of the following(4)(5)(6)(7) [ ]a) Vertebral fracture requiring observation for instability or neurologic compromise (8) [ ]b) Compartment syndrome (proven or cannot be ruled out during observation level of care) (9) [ ]c) Limb-threatening injury [ ]d) Major injury requiring inpatient stabilization such as traction initiation or external fixation before internal fixation or closure of complex or open fracture [ ]e) Major injury requiring inpatient treatment after emergency or observation level care (as appropriate) [ ]f) Severe pain requiring acute inpatient management [ ]g) Injury with suspicion of abuse or neglect (eg., child, dependent elderly) [ ]II. Newly diagnosed or suspected bone, joint, or orthopedic device infection (e.g., osteomyelitis, septic arthritis) needing 1 or more of the following(1)(2)(3) [ ]a) IV antibiotics that cannot be initiated in other than inpatient setting (e.g., patient too unstable or home infusion not available) [ ]b) Device removal or replacement [ ]c) Bone or soft tissue debridement [ ]d) Joint drainage (drain placement or repetitive aspirations) [ ]III. Severe rheumatologic disease (e.g., systemic lupus erythematosus, rheumatoid arthritis) with complications or comorbidities (Also use Optimal Recovery Care Criteria or General Recovery Criteria as appropriate on the basis of predominant condition), including 1 or more of the following( 10)(11)(12)(13) [ ]a) Severe infection (e.g., MAINTE[employer] infection, sepsis) (14) [ ]b) Respiratory complications, including 1 or more of the following : [ ]i) Pleural effusion with respiratory compromise [ ]ii) Pulmonary hypertension with congestive failure [ ]iii) Respiratory failure [ ]iv) Pulmonary hemorrhage (15) [ ]c) Hematologic disease, including 1 or more of the following: [ ]i) Coagulopathy with bleeding [ ]ii) Thrombosis with hypercoagulable state [ ]iii) Thrombotic thrombocytopenic purpura [ ]d) Cerebritis with seizures, psychosis, or other severe abnormalities [ ]e) Vertebral destruction with monitoring needed for cervical myelopathy& possible respiratory compromise [ ]f) Exacerbation that requires inpatient treatment (e.g., intravenous immunosuppression) (16) [ ]g) Acute renal failure [ ]h) Cerebritis with seizures, psychosis, Altered mental status, or other neurologic abnormalities [ ]i) Pericardial effusion with tamponade [ ]j) Vertebral destruction, with monitoring needed for cervical myelopathy and possible respiratory compromise [ ]IV. Severe vasculitis with complications or comorbidities (Also use Optimal Recovery Care Criteria General Recovery Criteria as appropriate on the basis of predominant condition), including 1 or more of the following(11)(12)(17)(18)(19)(20) [ ]a) Exacerbation that requires inpatient treatment (e.g., intravenous immunosuppression) (19)(21) [ ]b) Pulmonary hemorrhage (15) [ ]c) MAINTE[employer]IAN vasculitis with seizures, psychosis, Altered mental status that is severe or persistent, or other severe abnormalities (22) [ ]d) Cerebral infarction [ ]e) Gastrointestinal ischemia [ ]f) Gangrene or threatened amputation [ ]g) Renal failure (16) [ ]h) Other significant complications of vasculitis ( eg., tissue or organ ischemia, organ dysfunction ) [ ]V. Severe myopathy as indicated by 1 or more of the following (28)(29) [ ]a) New onset of airway compromise or inability to swallow [ ]b) Respiratory deterioration with observation needed for impending respiratory failure [ ]c) Exacerbation that requires inpatient treatment (e.g., intravenous immunosuppression) [X ]. Severe crystal gout (arthropathy) indicated by 1 or more of the following (23)(24) [X ]a) Severe pain requiring acute inpatient management [ ]b) Exacerbation that requires inpatient treatment (e.g., intravenous treatment) [ ]VII.Rhabdomyolysis and 1 or more of the following (25)(26)(27) [ ]a) Acute renal failure [ ]b) Need for intravenous hydration after emergency or observation level care (as appropriate) [ ]c) Inability to maintain oral hydration [ ]d) Change in mental status [ ]e) Electrolyte abnormality that remains after emergency or observation level care (as appropriate) [ ]VIII Post amputation complication, as indicated by ANY ONE of the following [ ]a) Infection [ ]b) Dehiscence [ ]c) Myodesis failure [ ]IX. Severe pain requiring acute inpatient management due to musculoskeletal condition [ ]X. Musculoskeletal Disease and ALL of the following: [ ]a) Symptom or finding for which emergency and observation care have failed or are not considered appropriate (Use General Criteria: Observation Care as appropriate) [ ]b) Presence of ANY ONE of the following [ ]i) A General Admission Criteria [ ]ii) A Pediatric General Admission Criteria The original [facility] [employer] content created by [facility] [employer] has been revised. The portions of the content which have been revised are identified through the use of italic text or in bold, and [facility] has neither reviewed nor approved the modified material. All other unmodified content is copyright [facility] [employer]. Please see references footnoted in the original [facility] edition 2016 Admission Criteria Met: Yes
[2016-12-08] MEDS: PROTONIX PO SCH (09:16)
[2016-12-08] MEDS: LOVENOX SUB-Q SCH (09:17)
[2016-12-08] MEDS: NITROSTAT SL SCH (09:50)
[2016-12-08] MEDS ORDERED: LOVENOX SUB-Q SCH (10:00)
[2016-12-08] MEDS ORDERED: HALFPRIN EC PO SCH (10:00)
[2016-12-08] MEDS: COREG PO SCH ×2 (10:03→22:21)
[2016-12-08] MEDS: LASIX PO SCH (10:04)
[2016-12-08] MEDS: ZESTRIL PO SCH (10:04)
[2016-12-08] MEDS: ECOTRIN PO SCH (10:04)
--- NOTE | 2016-12-08 10:14 | Consultation ---
History of Present Illness - [facility] Consult date: 12/08/16 Consult reason: joint pain, other History of present illness: 60-year-old admitted with left ankle, foot swelling has history of gout, not on medications. He was in an emergency room, the ankle was aspirated, aspirate showed MSU, with increased neutrophils, negative for bacteria, cultures are pending. He is admitted with presumptive diagnosis of "septic arthritis". Medications and Allergies Allergies Allergy/AdvReac Type Severity Reaction Status Date / Time No Known Allergies Allergy Verified 04/15/14 18:09 Home Medications Medication Instructions Recorded Confirmed Last Taken Type Nitroglycerin [Nitrostat] 0.4 mg SL Q5M 04/16/14 12/09/16 2 Months Ago History Furosemide [Lasix] 40 mg PO DAILY #30 tablet 04/19/14 12/09/16 1 Day Ago Rx Aspirin EC [Aspirin Enteric Coated 325 mg PO QDAY 09/19/15 12/09/16 1 Day Ago History TAB] Carvedilol [Coreg] 25 mg PO BID 09/19/15 12/09/16 1 Day Ago History Lisinopril [Zestril TAB] 20 mg PO QDAY 09/19/15 12/09/16 1 Day Ago History AtorvaSTATin [Lipitor] 40 mg PO DAILY 02/07/16 12/09/16 1 Day Ago History Potassium 20 mg PO DAILY 09/14/16 12/09/16 1 Day Ago History Active Meds: Active Medications Acetaminophen (Tylenol) 650 mg PO Q4H PRN PRN Reason: Pain MILD(1-3)/Fever >100.5/HENRY Last Admin: 12/08/16 09:16 Dose: 650 mg Aspirin (Ecotrin) 325 mg PO QDAY [facility] Last Admin: 12/08/16 10:04 Dose: 325 mg Atorvastatin Calcium (Lipitor) 40 mg PO DAILY [facility] Last Admin: 12/08/16 10:04 Dose: 40 mg Bisacodyl (Dulcolax) 10 mg FL QDAY PRN PRN Reason: Constipation unrelieved by MOM Carvedilol (Coreg) 25 mg PO BID [facility] Last Admin: 12/08/16 10:03 Dose: 25 mg Enoxaparin Sodium (Lovenox) 40 mg SUB-Q QDAY@1000 [facility] Last Admin: 12/08/16 09:17 Dose: 40 mg Furosemide (Lasix) 40 mg PO DAILY [facility] Last Admin: 12/08/16 10:04 Dose: 40 mg Hydralazine HCl (Apresoline) 10 mg IV Q4H PRN PRN Reason: Hypertension Ibuprofen (Motrin) 200 mg PO Q8H [facility] Last Admin: 12/08/16 06:52 Dose: 200 mg Lisinopril (Zestril) 20 mg PO QDAY [facility] Last Admin: 12/08/16 10:04 Dose: 20 mg Magnesium Hydroxide (Milk Of Magnesia) 30 ml PO Q4H PRN PRN Reason: Constipation Nitroglycerin (Nitrostat) 0.4 mg SL Q5M [facility] Last Admin: 12/08/16 09:50 Dose: Not Given Ondansetron HCl (Zofran) 4 mg IV Q8H PRN PRN Reason: N/V unrelieved by Reglan Pantoprazole Sodium (Protonix) 40 mg PO QDAY [facility] Last Admin: 12/08/16 09:16 Dose: 40 mg Physical Examination - Ankle & Foot left Tenderness with palpation: other (The left foot, ankle region shows diffuse swelling, painful limitation of movement, swelling along the first MTP joint with pain on movement. No neuro vascular deficits. No obvious fluctuation, joint effusion.) Assessment and Plan - Patient Problems (1) Left ankle pain Current Visit: Yes Status: Acute Qualifiers: Chronicity: C Plan to address problem: Ankle aspirate positive for gout, no bacteria in smear. cultures pending recommend medical management of gout swelling redness secondary to acute flareup of gout, wait for cultures
--- NOTE | 2016-12-08 11:20 | XRay Report ---
Portable left ankle: Pain. There is mild edema over the dorsum of the distal leg ankle and foot. There is soft tissue mass or fluid in the anterior tibiotalar joint. There is posterior vascular calcification of the distal leg. There is some question concerning an anterior erosion of the anterior superior margin of the talus as well as the distal tibia at the anterior joint space. There is normal alignment and preservation of the joint spaces. Impressions: Soft tissue swelling and anterior joint effusion. Suspicion of bony erosion. Possibility of osteomyelitis or joint mass raised. Recommendation: Consider MRI scan.
[2016-12-08] MEDS: APRESOLINE IV PRN (11:57)
[2016-12-08] MEDS ORDERED: DELTASONE PO SCH (12:00)
--- NOTE | 2016-12-08 12:03 | Progress Note ---
Assessment and Plan Assessment and plan: 1. L ankle acute arthritis Septic arthritis vs gout attack S/p arthrocentesis; sinovial fluid showing no MSU crystals, WBC unable to be counted and no organism; culture pending Ortho consulted and recommended medical management for gout, but was not approved yet that patient has gout May benefit from repeat arthrocentesis with WBC count and Gram stain to definitely rule out septic arthritis Pain control medications 2. Hypertensive urgency Due to not restarting home antihypertensives on admission and severe lower extremity pain Restart po Coreg, lisinopril, lasix and add IV hydralazine until BP under control Monitor and adjust regimen as needed 3. Chronic systolic heart failure Restart BB, ACEI and diuretic Stable, without exacerbation at this time 4. Hyperlipidemia Resume statin 5. PVD Status post R AKA 6. DVT prophylaxis Lovenox History Interval history: c/o severe left ankle pain; BP significantly elevated Hospitalist Physical - Constitutional Vitals: Temp Pulse Resp BP Pulse Ox 98.1 F 101 H 22 179/88 98 12/08/16 11:49 12/08/16 11:57 12/08/16 11:49 12/08/16 11:57 12/08/16 08:25 General appearance: Present: mild distress, well-nourished - EENT Eyes: Present: PERRL, EOM intact. Absent: scleral icterus, conjunctival injection - Neck Neck: Present: supple, normal ROM. Absent: masses or JVD - Respiratory Respiratory effort: normal Respiratory: bilateral: CTA, negative: rhonchi, wheezing - Cardiovascular Rhythm: regular Heart Sounds: Present: S1 & S2. Absent: systolic murmur - Extremities Extremities: no ischemia, abnormal (R AKA, L ankle edema and tenderness) - Abdominal General gastrointestinal: soft, non-tender, non-distended, normal bowel sounds - Psychiatric Psychiatric: cooperative - Neurologic Neurologic: CNII-XII intact, no focal deficits Results - Labs CBC & Chem 7: 12/07/16 21:31 12/07/16 21:31 Labs: Laboratory Last Values WBC 16.4 K/mm3 (4.5-11.0) H 12/07/16 21:31 RBC 4.86 M/mm3 (3.65-5.03) 12/07/16 21:31 Hgb 14.0 gm/dl (11.8-15.2) 12/07/16 21:31 Hct 42.6 % (35.5-45.6) 12/07/16 21: MCV 88 fl (84-94) 12/07/16 21: MCH 29 pg (28-32) 12/07/16 21:31 MCHC 33 % (32-34) 12/07/16 21: RDW 14.0 % (13.2-15.2) 12/07/16 21: Plt Count 236 K/mm3 (140-440) 12/07/16 21:31 Add Manual Diff Complete 12/07/16 21:31 Total Counted 100 12/07/16 21:31 Seg Neuts % (Manual) 83.0 % (40.0-70.0) H 12/07/16 21:31 Band Neutrophils % 0 % 12/07/16 21:31 Lymphocytes % (Manual) 8.0 % (13.4-35.0) L 12/07/16 21:31 Reactive Lymphs % (Man) 0 % 12/07/16 21: Monocytes % (Manual) 9.0 % (0.0-7.3) H 12/07/16 21:31 Eosinophils % (Manual) 0 % (0.0-4.3) 12/07/16 21:31 Basophils % (Manual) 0 % (0.0-1.8) 12/07/16 21:31 Metamyelocytes % 0 % 12/07/16 21:31 Myelocytes % 0 % 12/07/16 21:31 Promyelocytes % 0 % 12/07/16 21:31 Blast Cells % 0 % 12/07/16 21:31 Nucleated RBC % Not Reportable 12/07/16 21:31 Seg Neutrophils # Man 13.6 K/mm3 (1.8-7.7) H 12/07/16 21:31 Band Neutrophils # 0.0 K/mm3 12/07/16 21:31 Lymphocytes # (Manual) 1.3 K/mm3 (1.2-5.4) 12/07/16 21:31 Abs React Lymphs (Man) 0.0 K/mm3 12/07/16 21:31 Monocytes # (Manual) 1.5 K/mm3 (0.0-0.8) H 12/07/16 21:31 Eosinophils # (Manual) 0.0 K/mm3 (0.0-0.4) 12/07/16 21:31 Basophils # (Manual) 0.0 K/mm3 (0.0-0.1) 12/07/16 21:31 Metamyelocytes # 0.0 K/mm3 12/07/16 21:31 Myelocytes # 0.0 K/mm3 12/07/16 21:31 Promyelocytes # 0.0 K/mm3 12/07/16 21:31 Blast Cells # 0.0 K/mm3 12/07/16 21:31 WBC Morphology Not Reportable 12/07/16 21:31 Hypersegmented Neuts Not Reportable 12/07/16 21:31 Hyposegmented Neuts Not Reportable 12/07/16 21:31 Hypogranular Neuts Not Reportable 12/07/16 21:31 Smudge Cells Not Reportable 12/07/16 21:31 Toxic Granulation Not Reportable 12/07/16 21:31 Toxic Vacuolation Not Reportable 12/07/16 21:31 Dohle Bodies Not Reportable 12/07/16 21:31 Pelger-Huet Anomaly Not Reportable 12/07/16 21:31 Tonie Rods Not Reportable 12/07/16 21:31 Platelet Estimate Consistent w auto 12/07/16 21:31 Clumped Platelets Not Reportable 12/07/16 21:31 Plt Clumps, EDTA Not Reportable 12/07/16 21:31 Large Platelets Not Reportable 12/07/16 21:31 Giant Platelets Not Reportable 12/07/16 21:31 Platelet Satelliting Not Reportable 12/07/16 21:31 Plt Morphology Comment Not Reportable 12/07/16 21:31 RBC Morphology Normal 12/07/16 21:31 Dimorphic RBCs Not Reportable 12/07/16 21:31 Polychromasia Not Reportable 12/07/16 21:31 Hypochromasia Not Reportable 12/07/16 21:31 Poikilocytosis Not Reportable 12/07/16 21:31 Anisocytosis Not Reportable 12/07/16 21:31 Microcytosis Not Reportable 12/07/16 21:31 Macrocytosis Not Reportable 12/07/16 21:31 Spherocytes Not Reportable 12/07/16 21:31 Pappenheimer Bodies Not Reportable 12/07/16 21:31 Sickle Cells Not Reportable 12/07/16 21:31 Target Cells Not Reportable 12/07/16 21:31 Tear Drop Cells Not Reportable 12/07/16 21:31 Ovalocytes Not Reportable 12/07/16 21:31 Helmet Cells Not Reportable 12/07/16 21:31 Baron-Pacheco Bodies Not Reportable 12/07/16 21:31 [place] Rings Not Reportable 12/07/16 21:31 Vandana Cells Not Reportable 12/07/16 21:31 Bite Cells Not Reportable 12/07/16 21:31 Crenated Cell Not Reportable 12/07/16 21:31 Elliptocytes Not Reportable 12/07/16 21:31 Acanthocytes (Spur) Not Reportable 12/07/16 21:31 Rouleaux Not Reportable 12/07/16 21:31 Hemoglobin C Crystals Not Reportable 12/07/16 21:31 Schistocytes Not Reportable 12/07/16 21:31 Malaria parasites Not Reportable 12/07/16 21:31 ESR 47 mm/Hr (0-20) 12/07/16 21:31 Bam Bodies Not Reportable 12/07/16 21:31 Hem Pathologist Commnt No 12/07/16 21:31 PT 14.0 Sec. (12.2-14.9) 12/08/16 02:08 INR 1.09 (0.87-1.13) 12/08/16 02:08 Sodium 142 mmol/L (137-145) 12/07/16 21:31 Potassium 3.8 mmol/L (3.6-5.0) 12/07/16 21:31 Chloride 101.5 mmol/L (98-107) 12/07/16 21:31 Carbon Dioxide 23 mmol/L (22-30) 12/07/16 21:31 Anion Gap 21 mmol/L 12/07/16 21:31 BUN 41 mg/dL (9-20) H 12/07/16 21:31 Creatinine 1.4 mg/dL (0.8-1.5) 12/07/16 21:31 Estimated GFR > 60 ml/min 12/07/16 21:31 BUN/Creatinine Ratio 29.28 % 12/07/16 21:31 Glucose 120 mg/dL (75-100) H 12/07/16 21:31 Lactic Acid 2.10 mmol/L (0.7-2.0) H* 12/08/16 02:08 Uric Acid 12.0 mg/dL (3.5-7.6) H 12/07/16 21:31 Calcium 9.6 mg/dL (8.4-10.2) 12/07/16 21:31 Total Creatine Kinase 531 units/L (55-170) H 12/08/16 02:08 C-Reactive Protein 2.80 mg/dL (0.00-1.30) H 12/07/16 21:31 Urine Color Yellow (Yellow) 12/08/16 01:26 Urine Turbidity Clear (Clear) 12/08/16 01:26 Urine pH 5.0 (5.0-7.0) 12/08/16 01:26 Ur Specific [place] 1.020 (1.003-1.030) 12/08/16 01:26 Urine Protein <15 mg/dl mg/dL (Negative) 12/08/16 01:26 Urine Glucose (UA) Neg mg/dL (Negative) 12/08/16 01:26 Urine Ketones Neg mg/dL (Negative) 12/08/16 01:26 Urine Blood Neg (Negative) 12/08/16 01:26 Urine Nitrite Neg (Negative) 12/08/16 01:26 Urine Bilirubin Neg (Negative) 12/08/16 01:26 Urine Urobilinogen < 2.0 mg/dL (<2.0) 12/08/16 01:26 Ur Leukocyte Esterase Neg (Negative) 12/08/16 01:26 Urine WBC (Auto) 1.0 /HPF (0.0-6.0) 12/08/16 01:26 Urine RBC (Auto) 4.0 /HPF (0.0-6.0) 12/08/16 01:26 U Epithel Cells (Auto) < 1.0 /HPF (0-13.0) 12/08/16 01:26 Hyaline Casts 5 /LPF 12/08/16 01:26 Urine Mucus Few /HPF 12/08/16 01:26 Fluid Type Synovial 12/08/16 03:48 Fluid Color Red 12/08/16 03:48 Fluid Appearance Turbid 12/08/16 03:48 Fluid WBC TNR 12/08/16 03:48 Fluid RBC TNR 12/08/16 03:48 Fluid Seg Neutrophils TNR 12/08/16 03:48 Fluid Lymphocytes TNR 12/08/16 03:48 Fluid Reactive Lymphs TNR 12/08/16 03:48 Fluid Monocytes TNR 12/08/16 03:48 Fluid Eosinophils TNR 12/08/16 03:48 Fluid Basophils TNR 12/08/16 03:48 Fluid Comment See add'l comments 12/08/16 03:48 Synovial Crystals Msu crystals (NONE SEEN) 12/08/16 03:48
[2016-12-08] MEDS: PERCOCET 5/325 PO PRN ×2 (13:53→22:20)
[2016-12-08] MEDS: MOTRIN PO SCH ×2 (16:52→22:05)
[2016-12-09] MEDS: NITROSTAT SL SCH ×3 (04:10→09:08)
[2016-12-09] MEDS: MOTRIN PO SCH ×4 (04:13→21:11)
[2016-12-09 07:32] LABS: Basophils % (Auto) 0.2 % (0.0-1.8); Hematocrit 38.9 % (35.5-45.6); Hemoglobin 12.3 gm/dl (11.8-15.2); Mean Corpuscular HGB Conc 32 % (32-34); Mean Corpuscular Hemoglobin 28 pg (28-32); Mean Corpuscular Volume 89 fl (84-94); Platelet Count 190 K/mm3 (140-440); Red Blood Count 4.38 M/mm3 (3.65-5.03); Red Cell Distribution Width 13.6 % (13.2-15.2)
[2016-12-09 07:43] LABS: Calcium 8.9 mg/dL (8.4-10.2); Potassium 3.8 mmol/L (3.6-5.0)
[2016-12-09] MEDS: LOVENOX SUB-Q SCH (09:10)
[2016-12-09] MEDS: ECOTRIN PO SCH (09:10)
[2016-12-09] MEDS: COREG PO SCH ×2 (09:10→21:08)
[2016-12-09] MEDS: LASIX PO SCH (09:10)
[2016-12-09] MEDS: PROTONIX PO SCH (09:13)
[2016-12-09] MEDS: ZESTRIL PO SCH (09:13)
[2016-12-09] MEDS: PERCOCET 5/325 PO PRN ×2 (09:21→15:38)
[2016-12-09] MEDS ORDERED: NITROSTAT SL PRN (12:58)
--- NOTE | 2016-12-09 19:13 | Progress Note ---
Assessment and Plan Assessment and plan: 1. L ankle acute arthritis Septic arthritis vs gout attack S/p arthrocentesis; sinovial fluid showing no MSU crystals, WBC unable to be counted and no organism; culture pending Ortho consulted and recommended medical management for gout, but was not approved yet that patient has gout May benefit from repeat arthrocentesis with WBC count and Gram stain to definitely rule out septic arthritis Pain control medications 2. Hypertensive urgency Due to not restarting home antihypertensives on admission and severe lower extremity pain Restart po Coreg, lisinopril, lasix and add IV hydralazine until BP under control Monitor and adjust regimen as needed 3. Chronic systolic heart failure Restart BB, ACEI and diuretic Stable, without exacerbation at this time 4. Hyperlipidemia Resume statin 5. PVD Status post R AKA 6. DVT prophylaxis Lovenox History Interval history: c/o left ankle pain; BP significantly elevated, no CP, SOB, headache associated Hospitalist Physical - Constitutional Vitals: Temp Pulse Resp BP Pulse Ox 98.5 F 88 20 126/60 96 12/09/16 17:34 12/09/16 17:34 12/09/16 17:34 12/09/16 17:34 12/09/16 17:34 General appearance: Present: mild distress, obese - Neck Neck: Present: supple. Absent: enlarged thyroid, masses or JVD - Respiratory Respiratory effort: normal Respiratory: bilateral: CTA, negative: rhonchi, wheezing - Cardiovascular Rhythm: regular Heart Sounds: Present: S1 & S2. Absent: systolic murmur - Extremities Extremities: no ischemia, abnormal (R AKA, L ankle edema, warthm, tenderness) - Abdominal General gastrointestinal: soft, non-tender, non-distended, normal bowel sounds - Neurologic Neurologic: CNII-XII intact, no focal deficits Results - Labs CBC & Chem 7: 12/09/16 07:03 12/10/16 03:34 Labs: Laboratory Last Values WBC 16.0 K/mm3 (4.5-11.0) H 12/09/16 07:03 RBC 4.38 M/mm3 (3.65-5.03) 12/09/16 07:03 Hgb 12.3 gm/dl (11.8-15.2) 12/09/16 07:03 Hct 38.9 % (35.5-45.6) 12/09/16 07:03 MCV 89 fl (84-94) 12/09/16 07:03 MCH 28 pg (28-32) 12/09/16 07:03 MCHC 32 % (32-34) 12/09/16 07:03 RDW 13.6 % (13.2-15.2) 12/09/16 07:03 Plt Count 190 K/mm3 (140-440) 12/09/16 07:03 Lymph % (Auto) 15.1 % (13.4-35.0) 12/09/16 07:03 [place] % (Auto) 9.5 % (0.0-7.3) H 12/09/16 07:03 Eos % (Auto) 1.0 % (0.0-4.3) 12/09/16 07:03 Baso % (Auto) 0.2 % (0.0-1.8) 12/09/16 07:03 Lymph # 2.4 K/mm3 (1.2-5.4) 12/09/16 07:03 [place] # 1.5 K/mm3 (0.0-0.8) H 12/09/16 07:03 Eos # 0.2 K/mm3 (0.0-0.4) 12/09/16 07:03 Baso # 0.0 K/mm3 (0.0-0.1) 12/09/16 07:03 Add Manual Diff Complete 12/07/16 21:31 Total Counted 100 12/07/16 21:31 Seg Neutrophils % 74.2 % (40.0-70.0) H 12/09/16 07:03 Seg Neuts % (Manual) 83.0 % (40.0-70.0) H 12/07/16 21:31 Band Neutrophils % 0 % 12/07/16 21:31 Lymphocytes % (Manual) 8.0 % (13.4-35.0) L 12/07/16 21:31 Reactive Lymphs % (Man) 0 % 12/07/16 21:31 Monocytes % (Manual) 9.0 % (0.0-7.3) H 12/07/16 21:31 Eosinophils % (Manual) 0 % (0.0-4.3) 12/07/16 21:31 Basophils % (Manual) 0 % (0.0-1.8) 12/07/16 21:31 Metamyelocytes % 0 % 12/07/16 21:31 Myelocytes % 0 % 12/07/16 21:31 Promyelocytes % 0 % 12/07/16 21:31 Blast Cells % 0 % 12/07/16 21:31 Nucleated RBC % Not Reportable 12/07/16 21:31 Seg Neutrophils # 11.8 K/mm3 (1.8-7.7) H 12/09/16 07:03 Seg Neutrophils # Man 13.6 K/mm3 (1.8-7.7) H 12/07/16 21:31 Band Neutrophils # 0.0 K/mm3 12/07/16 21:31 Lymphocytes # (Manual) 1.3 K/mm3 (1.2-5.4) 12/07/16 21:31 Abs React Lymphs (Man) 0.0 K/mm3 12/07/16 21:31 Monocytes # (Manual) 1.5 K/mm3 (0.0-0.8) H 12/07/16 21:31 Eosinophils # (Manual) 0.0 K/mm3 (0.0-0.4) 12/07/16 21:31 Basophils # (Manual) 0.0 K/mm3 (0.0-0.1) 12/07/16 21:31 Metamyelocytes # 0.0 K/mm3 12/07/16 21:31 Myelocytes # 0.0 K/mm3 12/07/16 21:31 Promyelocytes # 0.0 K/mm3 12/07/16 21:31 Blast Cells # 0.0 K/mm3 12/07/16 21:31 WBC Morphology Not Reportable 12/07/16 21:31 Hypersegmented Neuts Not Reportable 12/07/16 21:31 Hyposegmented Neuts Not Reportable 12/07/16 21:31 Hypogranular Neuts Not Reportable 12/07/16 21:31 Smudge Cells Not Reportable 12/07/16 21:31 Toxic Granulation Not Reportable 12/07/16 21:31 Toxic Vacuolation Not Reportable 12/07/16 21:31 Dohle Bodies Not Reportable 12/07/16 21:31 Pelger-Huet Anomaly Not Reportable 12/07/16 21:31 Tonie Rods Not Reportable 12/07/16 21:31 Platelet Estimate Consistent w auto 12/07/16 21:31 Clumped Platelets Not Reportable 12/07/16 21:31 Plt Clumps, EDTA Not Reportable 12/07/16 21:31 Large Platelets Not Reportable 12/07/16 21:31 Giant Platelets Not Reportable 12/07/16 21:31 Platelet Satelliting Not Reportable 12/07/16 21:31 Plt Morphology Comment Not Reportable 12/07/16 21:31 RBC Morphology Normal 12/07/16 21:31 Dimorphic RBCs Not Reportable 12/07/16 21:31 Polychromasia Not Reportable 12/07/16 21:31 Hypochromasia Not Reportable 12/07/16 21:31 Poikilocytosis Not Reportable 12/07/16 21:31 Anisocytosis Not Reportable 12/07/16 21:31 Microcytosis Not Reportable 12/07/16 21:31 Macrocytosis Not Reportable 12/07/16 21:31 Spherocytes Not Reportable 12/07/16 21:31 Pappenheimer Bodies Not Reportable 12/07/16 21:31 Sickle Cells Not Reportable 12/07/16 21:31 Target Cells Not Reportable 12/07/16 21:31 Tear Drop Cells Not Reportable 12/07/16 21:31 Ovalocytes Not Reportable 12/07/16 21:31 Helmet Cells Not Reportable 12/07/16 21:31 [place] Bodies Not Reportable 12/07/16 21:31 [place] Rings Not Reportable 12/07/16 21:31 [place] Cells Not Reportable 12/07/16 21:31 Bite Cells Not Reportable 12/07/16 21:31 Crenated Cell Not Reportable 12/07/16 21:31 Elliptocytes Not Reportable 12/07/16 21:31 Acanthocytes (Spur) Not Reportable 12/07/16 21:31 Rouleaux Not Reportable 12/07/16 21:31 Hemoglobin C Crystals Not Reportable 12/07/16 21:31 Schistocytes Not Reportable 12/07/16 21:31 Malaria parasites Not Reportable 12/07/16 21:31 ESR 47 mm/Hr (0-20) 12/07/16 21:31 Bam Bodies Not Reportable 12/07/16 21:31 Hem Pathologist Commnt No 12/07/16 21:31 PT 14.0 Sec. (12.2-14.9) 12/08/16 02:08 INR 1.09 (0.87-1.13) 12/08/16 02:08 Sodium 141 mmol/L (137-145) 12/09/16 07:03 Potassium 3.8 mmol/L (3.6-5.0) 12/09/16 07:03 Chloride 104.0 mmol/L (98-107) 12/09/16 07:03 Carbon Dioxide 24 mmol/L (22-30) 12/09/16 07:03 Anion Gap 17 mmol/L 12/09/16 07:03 BUN 33 mg/dL (9-20) H 12/09/16 07:03 Creatinine 1.5 mg/dL (0.8-1.5) 12/09/16 07:03 Estimated GFR 57 ml/min 12/09/16 07:03 BUN/Creatinine Ratio 22.00 % 12/09/16 07:03 Glucose 96 mg/dL (75-100) 12/09/16 07:03 Lactic Acid 2.10 mmol/L (0.7-2.0) H* 12/08/16 02:08 Uric Acid 12.0 mg/dL (3.5-7.6) H 12/07/16 21:31 Calcium 8.9 mg/dL (8.4-10.2) 12/09/16 07:03 Total Creatine Kinase 531 units/L (55-170) H 12/08/16 02:08 C-Reactive Protein 2.80 mg/dL (0.00-1.30) H 12/07/16 21:31 Urine Color Yellow (Yellow) 12/08/16 01:26 Urine Turbidity Clear (Clear) 12/08/16 01:26 Urine pH 5.0 (5.0-7.0) 12/08/16 01:26 Ur Specific [place] 1.020 (1.003-1.030) 12/08/16 01:26 Urine Protein <15 mg/dl mg/dL (Negative) 12/08/16 01:26 Urine Glucose (UA) Neg mg/dL (Negative) 12/08/16 01:26 Urine Ketones Neg mg/dL (Negative) 12/08/16 01:26 Urine Blood Neg (Negative) 12/08/16 01:26 Urine Nitrite Neg (Negative) 12/08/16 01:26 Urine Bilirubin Neg (Negative) 12/08/16 01:26 Urine Urobilinogen < 2.0 mg/dL (<2.0) 12/08/16 01:26 Ur Leukocyte Esterase Neg (Negative) 12/08/16 01:26 Urine WBC (Auto) 1.0 /HPF (0.0-6.0) 12/08/16 01:26 Urine RBC (Auto) 4.0 /HPF (0.0-6.0) 12/08/16 01:26 U Epithel Cells (Auto) < 1.0 /HPF (0-13.0) 12/08/16 01:26 Hyaline Casts 5 /LPF 12/08/16 01:26 Urine Mucus Few /HPF 12/08/16 01:26 Fluid Type Synovial 12/08/16 03:48 Fluid Color Red 12/08/16 03:48 Fluid Appearance Turbid 12/08/16 03:48 Fluid WBC TNR 12/08/16 03:48 Fluid RBC TNR 12/08/16 03:48 Fluid Seg Neutrophils TNR 12/08/16 03:48 Fluid Lymphocytes TNR 12/08/16 03:48 Fluid Reactive Lymphs TNR 12/08/16 03:48 Fluid Monocytes TNR 12/08/16 03:48 Fluid Eosinophils TNR 12/08/16 03:48 Fluid Basophils TNR 12/08/16 03:48 Fluid Comment See add'l comments 12/08/16 03:48 Synovial Crystals Msu crystals (NONE SEEN) 12/08/16 03:48
[2016-12-09] MEDS: DELTASONE PO SCH (21:08)
[2016-12-10 04:31] LABS: Anion Gap 21 mmol/L; Blood Urea Nitrogen 30 mg/dL (9-20); Calcium 8.9 mg/dL (8.4-10.2); Carbon Dioxide 22 mmol/L (22-30); Chloride 100.2 mmol/L (98-107); Glucose 132 mg/dL (75-100); Potassium 4.4 mmol/L (3.6-5.0); Sodium 139 mmol/L (137-145)
[2016-12-10] MEDS: MOTRIN PO SCH ×3 (06:27→22:47)
[2016-12-10] MEDS: DELTASONE PO SCH (10:01)
[2016-12-10] MEDS: PROTONIX PO SCH (10:01)
[2016-12-10] MEDS: LASIX PO SCH (10:01)
[2016-12-10] MEDS: ZESTRIL PO SCH (10:01)
[2016-12-10] MEDS: COREG PO SCH ×2 (10:02→22:47)
[2016-12-10] MEDS: LOVENOX SUB-Q SCH (10:02)
[2016-12-10] MEDS: ECOTRIN PO SCH (10:06)
--- NOTE | 2016-12-10 13:55 | Event Note ---
Date: 12/10/16 left ankle aspirated fluid to lab
--- NOTE | 2016-12-10 14:00 | Progress Note ---
Assessment and Plan - Patient Problems (1) Left ankle pain Current Visit: Yes Status: Acute Qualifiers: Chronicity: C Plan to address problem: Previoud cultures/ gm stain neg for bacteria. Cell count/ diff unawailable. Ankle re aspirated , fluid to lab Cont [facility] antibiotics pending cultures. Subjective Date of service: 12/10/16 Interval history: The left ankle remains with some swelling, redness clinically appeared with some improvement, white count elevated. Continue to moderate pain. Previous labs reviewed. Cultures are pending and negative so far as. Cell count with differential are not available The left ankle aspirated, approximately 2 cc of cloudy fluid, to lab for cultures, Gram stain, cell count. We'll plan possible debridement, irrigation of the ankle tomorrow. Objective Vital signs: Vital Signs - 12hr 12/10/16 12/10/16 12/10/16 05:00 07:00 09:00 Temperature 98 F 97.6 F Pulse Rate 76 Pulse Rate [ 89 76 Left Radial] Respiratory 18 20 Rate Blood Pressure 180/89 222/85 [Left Arm] O2 Sat by Pulse 94 95 Oximetry 12/10/16 10:00 Temperature Pulse Rate Pulse Rate [ 76 Left Radial] Respiratory 20 Rate Blood Pressure [Left Arm] O2 Sat by Pulse 95 Oximetry Narrative Exam: ankle swelling down, pain ++ - Labs CBC & BMP: 12/11/16 05:47 12/11/16 05:47 Labs: Abnormal lab results 12/10/16 Range/Units 03:34 BUN 30 H (9-20) mg/dL Glucose 132 H (75-100) mg/dL
--- NOTE | 2016-12-10 14:01 | Progress Note ---
Assessment and Plan Assessment and plan: 1. L ankle acute arthritis Septic arthritis vs gout attack S/p arthrocentesis; sinovial fluid showing no MSU crystals, WBC unable to be counted and no organism; culture with preliminary result negative Ortho consulted and recommended medical management for gout, but was not proved yet that patient has gout May benefit from repeat arthrocentesis with WBC count and Gram stain to definitely rule out septic arthritis; discussed with Dr. Burks who agreed to repeat the arthrocentesis Started on short course of Prednisone as NSAIDs use limited due to renal function and concomitant use of diuretic/GIBSON inhibitor Based on new results of synovial fluid analysis, will decide treatment Monitor closely 2. Hypertensive urgency Due to not restarting home antihypertensives on admission and severe lower extremity pain Restarted on po Coreg, lisinopril, lasix and prn IV hydralazine added BP significantly elevated this morning before receiving his po medications; IV hydralazine not given Discussed with the nurse 3. RAYRAY Due to NSAIDs, diuretic, ACEI use Monitor and limit use of above mentioned meds 3. Chronic systolic heart failure Restarted on BB, ACEI and diuretic Stable, without exacerbation at this time 4. Hyperlipidemia On statin 5. PVD Status post R AKA 6. DVT prophylaxis Lovenox History Interval history: c/o left ankle pain; BP significantly elevated Hospitalist Physical - Constitutional Vitals: Temp Pulse Resp BP Pulse Ox 97.6 F 76 20 222/85 95 12/10/16 09:00 12/10/16 10:00 12/10/16 10:00 12/10/16 09:00 12/10/16 10:00 General appearance: Present: mild distress, well-nourished - EENT Eyes: Present: PERRL, EOM intact - Neck Neck: Present: supple. Absent: enlarged thyroid, masses or JVD - Respiratory Respiratory effort: normal Respiratory: bilateral: CTA, negative: rhonchi, wheezing - Cardiovascular Rhythm: regular Heart Sounds: Present: S1 & S2. Absent: systolic murmur - Extremities Extremities: no ischemia, abnormal (R AKA; L ankle edema, warthm and tenderness) - Abdominal General gastrointestinal: soft, non-tender, non-distended, normal bowel sounds - Integumentary Integumentary: Present: warm, dry. Absent: jaundice, rash - Neurologic Neurologic: CNII-XII intact, no focal deficits Results - Labs CBC & Chem 7: 12/09/16 07:03 12/10/16 03:34 Labs: Laboratory Last Values WBC 16.0 K/mm3 (4.5-11.0) H 12/09/16 07:03 RBC 4.38 M/mm3 (3.65-5.03) 12/09/16 07:03 Hgb 12.3 gm/dl (11.8-15.2) 12/09/16 07:03 Hct 38.9 % (35.5-45.6) 12/09/16 07:03 MCV 89 fl (84-94) 12/09/16 07:03 MCH 28 pg (28-32) 12/09/16 07:03 MCHC 32 % (32-34) 12/09/16 07:03 RDW 13.6 % (13.2-15.2) 12/09/16 07:03 Plt Count 190 K/mm3 (140-440) 12/09/16 07:03 Lymph % (Auto) 15.1 % (13.4-35.0) 12/09/16 07:03 [place] % (Auto) 9.5 % (0.0-7.3) H 12/09/16 07:03 Eos % (Auto) 1.0 % (0.0-4.3) 12/09/16 07:03 Baso % (Auto) 0.2 % (0.0-1.8) 12/09/16 07:03 Lymph # 2.4 K/mm3 (1.2-5.4) 12/09/16 07:03 [place] # 1.5 K/mm3 (0.0-0.8) H 12/09/16 07:03 Eos # 0.2 K/mm3 (0.0-0.4) 12/09/16 07:03 Baso # 0.0 K/mm3 (0.0-0.1) 12/09/16 07:03 Add Manual Diff Complete 12/07/16 21:31 Total Counted 100 12/07/16 21:31 Seg Neutrophils % 74.2 % (40.0-70.0) H 12/09/16 07:03 Seg Neuts % (Manual) 83.0 % (40.0-70.0) H 12/07/16 21:31 Band Neutrophils % 0 % 12/07/16 21:31 Lymphocytes % (Manual) 8.0 % (13.4-35.0) L 12/07/16 21:31 Reactive Lymphs % (Man) 0 % 12/07/16 21:31 Monocytes % (Manual) 9.0 % (0.0-7.3) H 12/07/16 21:31 Eosinophils % (Manual) 0 % (0.0-4.3) 12/07/16 21:31 Basophils % (Manual) 0 % (0.0-1.8) 12/07/16 21:31 Metamyelocytes % 0 % 12/07/16 21:31 Myelocytes % 0 % 12/07/16 21:31 Promyelocytes % 0 % 12/07/16 21:31 Blast Cells % 0 % 12/07/16 21:31 Nucleated RBC % Not Reportable 12/07/16 21:31 Seg Neutrophils # 11.8 K/mm3 (1.8-7.7) H 12/09/16 07:03 Seg Neutrophils # Man 13.6 K/mm3 (1.8-7.7) H 12/07/16 21:31 Band Neutrophils # 0.0 K/mm3 12/07/16 21:31 Lymphocytes # (Manual) 1.3 K/mm3 (1.2-5.4) 12/07/16 21:31 Abs React Lymphs (Man) 0.0 K/mm3 12/07/16 21:31 Monocytes # (Manual) 1.5 K/mm3 (0.0-0.8) H 12/07/16 21:31 Eosinophils # (Manual) 0.0 K/mm3 (0.0-0.4) 12/07/16 21:31 Basophils # (Manual) 0.0 K/mm3 (0.0-0.1) 12/07/16 21:31 Metamyelocytes # 0.0 K/mm3 12/07/16 21:31 Myelocytes # 0.0 K/mm3 12/07/16 21:31 Promyelocytes # 0.0 K/mm3 12/07/16 21:31 Blast Cells # 0.0 K/mm3 12/07/16 21:31 WBC Morphology Not Reportable 12/07/16 21:31 Hypersegmented Neuts Not Reportable 12/07/16 21:31 Hyposegmented Neuts Not Reportable 12/07/16 21:31 Hypogranular Neuts Not Reportable 12/07/16 21:31 Smudge Cells Not Reportable 12/07/16 21:31 Toxic Granulation Not Reportable 12/07/16 21:31 Toxic Vacuolation Not Reportable 12/07/16 21:31 Dohle Bodies Not Reportable 12/07/16 21:31 Pelger-Huet Anomaly Not Reportable 12/07/16 21:31 Tonie Rods Not Reportable 12/07/16 21:31 Platelet Estimate Consistent w auto 12/07/16 21:31 Clumped Platelets Not Reportable 12/07/16 21:31 Plt Clumps, EDTA Not Reportable 12/07/16 21:31 Large Platelets Not Reportable 12/07/16 21:31 Giant Platelets Not Reportable 12/07/16 21:31 Platelet Satelliting Not Reportable 12/07/16 21:31 Plt Morphology Comment Not Reportable 12/07/16 21:31 RBC Morphology Normal 12/07/16 21:31 Dimorphic RBCs Not Reportable 12/07/16 21:31 Polychromasia Not Reportable 12/07/16 21:31 Hypochromasia Not Reportable 12/07/16 21:31 Poikilocytosis Not Reportable 12/07/16 21:31 Anisocytosis Not Reportable 12/07/16 21:31 Microcytosis Not Reportable 12/07/16 21:31 Macrocytosis Not Reportable 12/07/16 21:31 Spherocytes Not Reportable 12/07/16 21:31 Pappenheimer Bodies Not Reportable 12/07/16 21:31 Sickle Cells Not Reportable 12/07/16 21:31 Target Cells Not Reportable 12/07/16 21:31 Tear Drop Cells Not Reportable 12/07/16 21:31 Ovalocytes Not Reportable 12/07/16 21:31 Helmet Cells Not Reportable 12/07/16 21:31 Baron-[place] Bodies Not Reportable 12/07/16 21:31 [place] Rings Not Reportable 12/07/16 21:31 [place] Cells Not Reportable 12/07/16 21:31 Bite Cells Not Reportable 12/07/16 21:31 Crenated Cell Not Reportable 12/07/16 21:31 Elliptocytes Not Reportable 12/07/16 21:31 Acanthocytes (Spur) Not Reportable 12/07/16 21:31 Rouleaux Not Reportable 12/07/16 21:31 Hemoglobin C Crystals Not Reportable 12/07/16 21:31 Schistocytes Not Reportable 12/07/16 21:31 Malaria parasites Not Reportable 12/07/16 21:31 ESR 47 mm/Hr (0-20) 12/07/16 21:31 Bam Bodies Not Reportable 12/07/16 21:31 Hem Pathologist Commnt No 12/07/16 21:31 PT 14.0 Sec. (12.2-14.9) 12/08/16 02:08 INR 1.09 (0.87-1.13) 12/08/16 02:08 Sodium 139 mmol/L (137-145) 12/10/16 03:34 Potassium 4.4 mmol/L (3.6-5.0) 12/10/16 03:34 Chloride 100.2 mmol/L (98-107) 12/10/16 03:34 Carbon Dioxide 22 mmol/L (22-30) 12/10/16 03:34 Anion Gap 21 mmol/L 12/10/16 03:34 BUN 30 mg/dL (9-20) H 12/10/16 03:34 Creatinine 1.2 mg/dL (0.8-1.5) 12/10/16 03:34 Estimated GFR > 60 ml/min 12/10/16 03:34 BUN/Creatinine Ratio 25.00 % 12/10/16 03:34 Glucose 132 mg/dL (75-100) H 12/10/16 03:34 Lactic Acid 2.10 mmol/L (0.7-2.0) H* 12/08/16 02:08 Uric Acid 12.0 mg/dL (3.5-7.6) H 12/07/16 21:31 Calcium 8.9 mg/dL (8.4-10.2) 12/10/16 03:34 Total Creatine Kinase 531 units/L (55-170) H 12/08/16 02:08 C-Reactive Protein 2.80 mg/dL (0.00-1.30) H 12/07/16 21:31 Urine Color Yellow (Yellow) 12/08/16 01:26 Urine Turbidity Clear (Clear) 12/08/16 01:26 Urine pH 5.0 (5.0-7.0) 12/08/16 01:26 Ur Specific [place] 1.020 (1.003-1.030) 12/08/16 01:26 Urine Protein <15 mg/dl mg/dL (Negative) 12/08/16 01:26 Urine Glucose (UA) Neg mg/dL (Negative) 12/08/16 01:26 Urine Ketones Neg mg/dL (Negative) 12/08/16 01:26 Urine Blood Neg (Negative) 12/08/16 01:26 Urine Nitrite Neg (Negative) 12/08/16 01:26 Urine Bilirubin Neg (Negative) 12/08/16 01:26 Urine Urobilinogen < 2.0 mg/dL (<2.0) 12/08/16 01:26 Ur Leukocyte Esterase Neg (Negative) 12/08/16 01:26 Urine WBC (Auto) 1.0 /HPF (0.0-6.0) 12/08/16 01:26 Urine RBC (Auto) 4.0 /HPF (0.0-6.0) 12/08/16 01:26 U Epithel Cells (Auto) < 1.0 /HPF (0-13.0) 12/08/16 01:26 Hyaline Casts 5 /LPF 12/08/16 01:26 Urine Mucus Few /HPF 12/08/16 01:26 Fluid Type Synovial 12/08/16 03:48 Fluid Color Red 12/08/16 03:48 Fluid Appearance Turbid 12/08/16 03:48 Fluid WBC TNR 12/08/16 03:48 Fluid RBC TNR 12/08/16 03:48 Fluid Seg Neutrophils TNR 12/08/16 03:48 Fluid Lymphocytes TNR 12/08/16 03:48 Fluid Reactive Lymphs TNR 12/08/16 03:48 Fluid Monocytes TNR 12/08/16 03:48 Fluid Eosinophils TNR 12/08/16 03:48 Fluid Basophils TNR 12/08/16 03:48 Fluid Comment See add'l comments 12/08/16 03:48 Synovial Crystals Msu crystals (NONE SEEN) 12/08/16 03:48
[2016-12-10] MEDS: APRESOLINE IV PRN ×2 (14:57→18:03)
[2016-12-10] MEDS: PERCOCET 5/325 PO PRN (18:10)
[2016-12-11 06:28] LABS: Basophils % (Auto) 0.1 % (0.0-1.8); Eosinophils % (Auto) 0.2 % (0.0-4.3); Hematocrit 37.4 % (35.5-45.6); Hemoglobin 11.9 gm/dl (11.8-15.2); Mean Corpuscular HGB Conc 32 % (32-34); Mean Corpuscular Hemoglobin 28 pg (28-32); Mean Corpuscular Volume 88 fl (84-94); Platelet Count 207 K/mm3 (140-440); Red Blood Count 4.28 M/mm3 (3.65-5.03); Red Cell Distribution Width 14.3 % (13.2-15.2); White Blood Count 15.6 K/mm3 (4.5-11.0)
[2016-12-11] MEDS: MOTRIN PO SCH ×2 (06:53→22:58)
[2016-12-11 07:19] LABS: Anion Gap 15 mmol/L; BUN/Creatinine Ratio 26.66; Blood Urea Nitrogen 32 mg/dL (9-20); Calcium 8.6 mg/dL (8.4-10.2); Carbon Dioxide 25 mmol/L (22-30); Chloride 101.4 mmol/L (98-107); Glucose 130 mg/dL (75-100); Potassium 3.8 mmol/L (3.6-5.0); Sodium 138 mmol/L (137-145)
[2016-12-11] MEDS: APRESOLINE IV PRN (09:57)
--- NOTE | 2016-12-11 11:32 | Progress Note ---
Subjective Date of service: 12/11/16 Interval history: Pt history relayed to me via Dr Cheng who preferred pt to have cardiac evaluation due to hx of triple vessel dz, hx CHF, prior Rx for cardiac Sx.Will await cardiology Rx before proceeding with Sx.Discussed with Dr Burks at 0830 this AM. Objective - Constitutional Vitals: Vital Signs - 12hr 12/11/16 12/11/16 12/11/16 00:59 05:33 08:35 Temperature 97.8 F 97.6 F 98.7 F Pulse Rate Pulse Rate [ 80 73 Left Radial] Pulse Rate [ 85 Right Radial] Respiratory 20 20 16 Rate Blood Pressure Blood Pressure 142/63 172/74 [Left Arm] Blood Pressure 221/101 [Right Arm] O2 Sat by Pulse 97 97 97 Oximetry 12/11/16 12/11/16 09:57 10:00 Temperature Pulse Rate 71 Pulse Rate [ 72 Left Radial] Pulse Rate [ 72 Right Radial] Respiratory 22 Rate Blood Pressure 190/100 Blood Pressure [Left Arm] Blood Pressure [Right Arm] O2 Sat by Pulse Oximetry - Labs CBC & Chem 7: 12/11/16 05:47 12/11/16 05:47 Labs: Abnormal lab results 12/11/16 12/11/16 Range/Units 05:47 05:47 WBC 15.6 H (4.5-11.0) K/mm3 Lymph % (Auto) 12.4 L (13.4-35.0) % [place] # 1.0 H (0.0-0.8) K/mm3 Seg Neutrophils % 80.7 H (40.0-70.0) % Seg Neutrophils # 12.6 H (1.8-7.7) K/mm3 BUN 32 H (9-20) mg/dL Glucose 130 H (75-100) mg/dL
[2016-12-11] MEDS: ZESTRIL PO SCH ×2 (12:49→18:19)
[2016-12-11] MEDS: COREG PO SCH ×2 (12:50→22:57)
--- NOTE | 2016-12-11 12:59 | Consultation ---
History of Present Illness Consult date: 12/11/16 Consult reason: pre op evaluation History of present illness: The patient is a 66-year-old man with multiple medical problems, presented with septic arthritis of the left ankle. He underwent needle aspiration, and is reportedly scheduled for debridement under general anesthesia. Cardiac consultation was requested for preoperative assessment. The patient is status post right leg above-knee amputation. He has a history of coronary artery disease and ischemic cardiomyopathy. Cardiac catheterization a year ago in September 2015 demonstrated multivessel coronary disease, with ischemic cardiomyopathy, ejection fraction 25-30%. On the cardiac catheterization report, he was recommended for CT surgery assessment for possible coronary artery bypass. However, the patient states that he did not receive coronary bypass, and it's uncertain what alternative therapies were administered for his coronary disease. I also do not have records of any further ischemic cardiac workup since that time. The patient at this time denies any chest pain or unusual shortness of breath. An ECG has not been done on this admission, but his telemetry strips demonstrated normal sinus rhythm with evidence of left ventricular hypertrophy and repolarization abnormalities. During this admission, he has remained persistently hypertensive with uncontrolled blood pressure systolic ranging 170-200. Past History Past Medical History: CAD, hypertension, PVD Medications and Allergies Allergies Allergy/AdvReac Type Severity Reaction Status Date / Time No Known Allergies Allergy Verified 04/15/14 18:09 Home Medications Medication Instructions Recorded Confirmed Last Taken Type Nitroglycerin [Nitrostat] 0.4 mg SL Q5M 04/16/14 12/09/16 2 Months Ago History Furosemide [Lasix] 40 mg PO DAILY #30 tablet 04/19/14 12/09/16 1 Day Ago Rx Aspirin EC [Aspirin Enteric Coated 325 mg PO QDAY 09/19/15 12/09/16 1 Day Ago History TAB] Carvedilol [Coreg] 25 mg PO BID 09/19/15 12/09/16 1 Day Ago History Lisinopril [Zestril TAB] 20 mg PO QDAY 09/19/15 12/09/16 1 Day Ago History AtorvaSTATin [Lipitor] 40 mg PO DAILY 02/07/16 12/09/16 1 Day Ago History Potassium 20 mg PO DAILY 09/14/16 12/09/16 1 Day Ago History Active Meds: Active Medications Acetaminophen (Tylenol) 650 mg PO Q4H PRN PRN Reason: Pain MILD(1-3)/Fever >100.5/HENRY Last Admin: 12/08/16 09:16 Dose: 650 mg Aspirin (Ecotrin) 325 mg PO QDAY [facility] Last Admin: 12/10/16 10:06 Dose: 325 mg Atorvastatin Calcium (Lipitor) 40 mg PO DAILY [facility] Last Admin: 12/10/16 10:01 Dose: 40 mg Bisacodyl (Dulcolax) 10 mg OR QDAY PRN PRN Reason: Constipation unrelieved by MOM Carvedilol (Coreg) 25 mg PO BID [facility] Last Admin: 12/11/16 12:50 Dose: 25 mg Enoxaparin Sodium (Lovenox) 40 mg SUB-Q QDAY@1000 [facility] Last Admin: 12/10/16 10:02 Dose: 40 mg Furosemide (Lasix) 40 mg PO DAILY [facility] Last Admin: 12/10/16 10:01 Dose: 40 mg Hydralazine HCl (Apresoline) 10 mg IV Q4H PRN PRN Reason: Hypertension Last Admin: 12/11/16 09:57 Dose: 10 mg Ibuprofen (Motrin) 600 mg PO Q8HR [facility] Last Admin: 12/11/16 06:53 Dose: Not Given Lisinopril (Zestril) 20 mg PO QDAY [facility] Last Admin: 12/11/16 12:49 Dose: 20 mg Magnesium Hydroxide (Milk Of Magnesia) 30 ml PO Q4H PRN PRN Reason: Constipation Nitroglycerin (Nitrostat) 0.4 mg SL Q5M PRN PRN Reason: Chest Pain Ondansetron HCl (Zofran) 4 mg IV Q8H PRN PRN Reason: N/V unrelieved by Reglan Oxycodone/Acetaminophen (Percocet 5/325) 1 tab PO Q6H PRN PRN Reason: Pain, Moderate (4-6) Last Admin: 12/10/16 18:10 Dose: 1 tab Pantoprazole Sodium (Protonix) 40 mg PO QDAY [facility] Last Admin: 12/10/16 10:01 Dose: 40 mg Prednisone (Deltasone) 40 mg PO QDAY [facility] Last Admin: 12/10/16 10:01 Dose: 40 mg Review of Systems Cardiovascular: shortness of breath, no chest pain, no orthopnea, no palpitations, no rapid/irregular heart beat, no edema, no syncope, no lightheadedness Physical Examination Vital Signs Temp Pulse Resp BP Pulse Ox 97.9 F 110 H 20 191/107 98 12/07/16 21:25 12/07/16 21:25 12/07/16 21:25 12/07/16 21:25 12/07/16 21:25 General appearance: no acute distress HEENT: Positive: PERRL Neck: Positive: neck supple Cardiac: Positive: Reg Rate and Rhythm Lungs: Positive: Decreased Breath Sounds Neuro: Positive: Grossly Intact, Other (right above-knee amputation) Abdomen: Positive: Soft Male genitourinary: Positive: deferred Skin: Positive: Clear Musculoskeletal: other (right above-knee amputation) Extremities: Absent: edema Results 12/11/16 05:47 12/11/16 05:47 CBC 12/11/16 Range/Units 05:47 WBC 15.6 H (4.5-11.0) K/mm3 RBC 4.28 (3.65-5.03) M/mm3 Hgb 11.9 (11.8-15.2) gm/dl Hct 37.4 (35.5-45.6) % Plt Count 207 (140-440) K/mm3 Lymph # 1.9 (1.2-5.4) K/mm3 [place] # 1.0 H (0.0-0.8) K/mm3 Eos # 0.0 (0.0-0.4) K/mm3 Baso # 0.0 (0.0-0.1) K/mm3 Comprehensive Metabolic Panel 12/11/16 Range/Units 05:47 Sodium 138 (137-145) mmol/L Potassium 3.8 (3.6-5.0) mmol/L Chloride 101.4 (98-107) mmol/L Carbon Dioxide 25 (22-30) mmol/L BUN 32 H (9-20) mg/dL Creatinine 1.2 (0.8-1.5) mg/dL Glucose 130 H (75-100) mg/dL Calcium 8.6 (8.4-10.2) mg/dL EKG interpretations - Telemetry EKG Rhythm: Sinus Rhythm Assessment and Plan - Patient Problems (1) Preoperative cardiovascular examination Current Visit: Yes Status: Acute Plan to address problem: He has a history of coronary artery disease and ischemic cardiomyopathy. Cardiac catheterization a year ago in September 2015 demonstrated multivessel coronary disease, with ischemic cardiomyopathy, ejection fraction 25-30%. On the cardiac catheterization report, he was recommended for CT surgery assessment for possible coronary artery bypass. However, the patient states that he did not receive coronary bypass, and it's uncertain what alternative therapies were administered for his coronary disease. I also do not have records of any further ischemic cardiac workup since that time. Before elective surgery is performed, need to get further assessment of his coronary status, with careful review of his outpatient records. In addition, the patient remains severely hypertensive on his hypertension needs to be under better control prior to anticipated surgery. We'll discuss with anesthesiology.
--- NOTE | 2016-12-11 13:03 | Event Note ---
Date: 12/11/16 He has a history of coronary artery disease and ischemic cardiomyopathy. Cardiac catheterization a year ago in September 2015 demonstrated multivessel coronary disease, with ischemic cardiomyopathy, ejection fraction 25-30%. On the cardiac catheterization report, he was recommended for CT surgery assessment for possible coronary artery bypass. However, the patient states that he did not receive coronary bypass, and it's uncertain what alternative therapies were administered for his coronary disease. I also do not have records of any further ischemic cardiac workup since that time. Before elective surgery is performed, need to get further assessment of his coronary status, with careful review of his outpatient records. In addition, the patient remains severely hypertensive on his hypertension needs to be under better control prior to anticipated surgery. We'll discuss with anesthesiology.
[2016-12-11] MEDS: PERCOCET 5/325 PO PRN (14:19)
[2016-12-11] MEDS: DELTASONE PO SCH (14:21)
[2016-12-11] MEDS: PROTONIX PO SCH (14:22)
[2016-12-11] MEDS: ECOTRIN PO SCH (14:22)
[2016-12-11] MEDS: LASIX PO SCH (14:23)
--- NOTE | 2016-12-11 14:51 | Progress Note ---
Assessment and Plan Assessment and plan: 1. L ankle acute arthritis Septic arthritis vs gout attack S/p arthrocentesis; sinovial fluid showing no MSU crystals, WBC unable to be counted and no organism; culture with no growth at 48 hours Ortho consulted and recommended medical management for gout, but was not proved yet that patient has gout I discussed with Dr. Burks that repeat arthrocentesis may be beneficial to repeat WBC count and Gram stain to definitely rule out septic arthritis; arthrocentesis repeated on 12/10, but no results available. Now Ortho plans elective surgery pending cardiology clearance 2. Hypertensive urgency Due to not restarting home antihypertensives on admission and severe lower extremity pain Coreg, lisinopril, lasix po restarted and IV hydralazine added BP continues to be significantly elevated, that he did not receive any of his po meds; discussed with nurse Monitor and adjust regimen as needed 3. Chronic systolic heart failure Cardiology consulted for preop clearance; records reviewed and per cardiac cath 09/2015 he has multivessel disease with EF 25-30% and he was supposed to have cardiac bypass; planning additional cardiac workup Restarted on BB, ACEI and diuretic 4. Hyperlipidemia Statin resumed 5. PVD Status post R AKA 6. DVT prophylaxis Lovenox History Interval history: BP remains significantly elevated, but he did not receive any of his po meds; has no complaints except for left ankle pain which is also better Ortho plans elective surgery and asked for cardiology clearance Hospitalist Physical - Constitutional Vitals: Temp Pulse Resp BP Pulse Ox 98.7 F 84 16 155/95 99 12/11/16 08:35 12/11/16 13:04 12/11/16 13:04 12/11/16 13:04 12/11/16 13:04 General appearance: Present: no acute distress, obese - EENT Eyes: Present: PERRL, EOM intact - Neck Neck: Present: supple. Absent: enlarged thyroid, masses or JVD - Respiratory Respiratory effort: normal Respiratory: bilateral: diminished, negative: rhonchi, wheezing - Cardiovascular Rhythm: regular Heart Sounds: Present: S1 & S2. Absent: systolic murmur - Extremities Extremities: no ischemia, abnormal (R AKA, left ankle swelling and tenderness) - Abdominal General gastrointestinal: soft, non-tender, non-distended, normal bowel sounds - Neurologic Neurologic: CNII-XII intact, no focal deficits Results - Labs CBC & Chem 7: 12/11/16 05:47 12/11/16 05:47 Labs: Laboratory Last Values WBC 15.6 K/mm3 (4.5-11.0) H 12/11/16 05:47 RBC 4.28 M/mm3 (3.65-5.03) 12/11/16 05:47 Hgb 11.9 gm/dl (11.8-15.2) 12/11/16 05:47 Hct 37.4 % (35.5-45.6) 12/11/16 05:47 MCV 88 fl (84-94) 12/11/16 05:47 MCH 28 pg (28-32) 12/11/16 05:47 MCHC 32 % (32-34) 12/11/16 05:47 RDW 14.3 % (13.2-15.2) 12/11/16 05:47 Plt Count 207 K/mm3 (140-440) 12/11/16 05:47 Lymph % (Auto) 12.4 % (13.4-35.0) L 12/11/16 05:47 [place] % (Auto) 6.6 % (0.0-7.3) 12/11/16 05:47 Eos % (Auto) 0.2 % (0.0-4.3) 12/11/16 05:47 Baso % (Auto) 0.1 % (0.0-1.8) 12/11/16 05:47 Lymph # 1.9 K/mm3 (1.2-5.4) 12/11/16 05:47 [place] # 1.0 K/mm3 (0.0-0.8) H 12/11/16 05:47 Eos # 0.0 K/mm3 (0.0-0.4) 12/11/16 05:47 Baso # 0.0 K/mm3 (0.0-0.1) 12/11/16 05:47 Add Manual Diff Complete 12/07/16 21:31 Total Counted 100 12/07/16 21:31 Seg Neutrophils % 80.7 % (40.0-70.0) H 12/11/16 05:47 Seg Neuts % (Manual) 83.0 % (40.0-70.0) H 12/07/16 21:31 Band Neutrophils % 0 % 12/07/16 21:31 Lymphocytes % (Manual) 8.0 % (13.4-35.0) L 12/07/16 21:31 Reactive Lymphs % (Man) 0 % 12/07/16 21:31 Monocytes % (Manual) 9.0 % (0.0-7.3) H 12/07/16 21:31 Eosinophils % (Manual) 0 % (0.0-4.3) 12/07/16 21:31 Basophils % (Manual) 0 % (0.0-1.8) 12/07/16 21:31 Metamyelocytes % 0 % 12/07/16 21:31 Myelocytes % 0 % 12/07/16 21:31 Promyelocytes % 0 % 12/07/16 21:31 Blast Cells % 0 % 12/07/16 21:31 Nucleated RBC % Not Reportable 12/07/16 21:31 Seg Neutrophils # 12.6 K/mm3 (1.8-7.7) H 12/11/16 05:47 Seg Neutrophils # Man 13.6 K/mm3 (1.8-7.7) H 12/07/16 21:31 Band Neutrophils # 0.0 K/mm3 12/07/16 21:31 Lymphocytes # (Manual) 1.3 K/mm3 (1.2-5.4) 12/07/16 21:31 Abs React Lymphs (Man) 0.0 K/mm3 12/07/16 21:31 Monocytes # (Manual) 1.5 K/mm3 (0.0-0.8) H 12/07/16 21:31 Eosinophils # (Manual) 0.0 K/mm3 (0.0-0.4) 12/07/16 21:31 Basophils # (Manual) 0.0 K/mm3 (0.0-0.1) 12/07/16 21:31 Metamyelocytes # 0.0 K/mm3 12/07/16 21:31 Myelocytes # 0.0 K/mm3 12/07/16 21:31 Promyelocytes # 0.0 K/mm3 12/07/16 21:31 Blast Cells # 0.0 K/mm3 12/07/16 21:31 WBC Morphology Not Reportable 12/07/16 21:31 Hypersegmented Neuts Not Reportable 12/07/16 21:31 Hyposegmented Neuts Not Reportable 12/07/16 21:31 Hypogranular Neuts Not Reportable 12/07/16 21:31 Smudge Cells Not Reportable 12/07/16 21:31 Toxic Granulation Not Reportable 12/07/16 21:31 Toxic Vacuolation Not Reportable 12/07/16 21:31 Dohle Bodies Not Reportable 12/07/16 21:31 Pelger-Huet Anomaly Not Reportable 12/07/16 21:31 Tonie Rods Not Reportable 12/07/16 21:31 Platelet Estimate Consistent w auto 12/07/16 21:31 Clumped Platelets Not Reportable 12/07/16 21:31 Plt Clumps, EDTA Not Reportable 12/07/16 21:31 Large Platelets Not Reportable 12/07/16 21:31 Giant Platelets Not Reportable 12/07/16 21:31 Platelet Satelliting Not Reportable 12/07/16 21:31 Plt Morphology Comment Not Reportable 12/07/16 21:31 RBC Morphology Normal 12/07/16 21:31 Dimorphic RBCs Not Reportable 12/07/16 21:31 Polychromasia Not Reportable 12/07/16 21:31 Hypochromasia Not Reportable 12/07/16 21:31 Poikilocytosis Not Reportable 12/07/16 21:31 Anisocytosis Not Reportable 12/07/16 21:31 Microcytosis Not Reportable 12/07/16 21:31 Macrocytosis Not Reportable 12/07/16 21:31 Spherocytes Not Reportable 12/07/16 21:31 Pappenheimer Bodies Not Reportable 12/07/16 21:31 Sickle Cells Not Reportable 12/07/16 21:31 Target Cells Not Reportable 12/07/16 21:31 Tear Drop Cells Not Reportable 12/07/16 21:31 Ovalocytes Not Reportable 12/07/16 21:31 Helmet Cells Not Reportable 12/07/16 21:31 [place] Bodies Not Reportable 12/07/16 21:31 Barto Rings Not Reportable 12/07/16 21:31 Vandana Cells Not Reportable 12/07/16 21:31 Bite Cells Not Reportable 12/07/16 21:31 Crenated Cell Not Reportable 12/07/16 21:31 Elliptocytes Not Reportable 12/07/16 21:31 Acanthocytes (Spur) Not Reportable 12/07/16 21:31 Rouleaux Not Reportable 12/07/16 21:31 Hemoglobin C Crystals Not Reportable 12/07/16 21:31 Schistocytes Not Reportable 12/07/16 21:31 Malaria parasites Not Reportable 12/07/16 21:31 ESR 47 mm/Hr (0-20) 12/07/16 21:31 Bam Bodies Not Reportable 12/07/16 21:31 Hem Pathologist Commnt No 12/07/16 21:31 PT 14.0 Sec. (12.2-14.9) 12/08/16 02:08 INR 1.09 (0.87-1.13) 12/08/16 02:08 Sodium 138 mmol/L (137-145) 12/11/16 05:47 Potassium 3.8 mmol/L (3.6-5.0) 12/11/16 05:47 Chloride 101.4 mmol/L (98-107) 12/11/16 05:47 Carbon Dioxide 25 mmol/L (22-30) 12/11/16 05:47 Anion Gap 15 mmol/L 12/11/16 05:47 BUN 32 mg/dL (9-20) H 12/11/16 05:47 Creatinine 1.2 mg/dL (0.8-1.5) 12/11/16 05:47 Estimated GFR > 60 ml/min 12/11/16 05:47 BUN/Creatinine Ratio 26.66 % 12/11/16 05:47 Glucose 130 mg/dL (75-100) H 12/11/16 05:47 Lactic Acid 2.10 mmol/L (0.7-2.0) H* 12/08/16 02:08 Uric Acid 12.0 mg/dL (3.5-7.6) H 12/07/16 21:31 Calcium 8.6 mg/dL (8.4-10.2) 12/11/16 05:47 Total Creatine Kinase 531 units/L (55-170) H 12/08/16 02:08 C-Reactive Protein 2.80 mg/dL (0.00-1.30) H 12/07/16 21:31 Urine Color Yellow (Yellow) 12/08/16 01:26 Urine Turbidity Clear (Clear) 12/08/16 01:26 Urine pH 5.0 (5.0-7.0) 12/08/16 01:26 Ur Specific [place] 1.020 (1.003-1.030) 12/08/16 01:26 Urine Protein <15 mg/dl mg/dL (Negative) 12/08/16 01:26 Urine Glucose (UA) Neg mg/dL (Negative) 12/08/16 01:26 Urine Ketones Neg mg/dL (Negative) 12/08/16 01:26 Urine Blood Neg (Negative) 12/08/16 01:26 Urine Nitrite Neg (Negative) 12/08/16 01:26 Urine Bilirubin Neg (Negative) 12/08/16 01:26 Urine Urobilinogen < 2.0 mg/dL (<2.0) 12/08/16 01:26 Ur Leukocyte Esterase Neg (Negative) 12/08/16 01:26 Urine WBC (Auto) 1.0 /HPF (0.0-6.0) 12/08/16 01:26 Urine RBC (Auto) 4.0 /HPF (0.0-6.0) 12/08/16 01:26 U Epithel Cells (Auto) < 1.0 /HPF (0-13.0) 12/08/16 01:26 Hyaline Casts 5 /LPF 12/08/16 01:26 Urine Mucus Few /HPF 12/08/16 01:26 Fluid Type Synovial 12/08/16 03:48 Fluid Color Red 12/08/16 03:48 Fluid Appearance Turbid 12/08/16 03:48 Fluid WBC TNR 12/08/16 03:48 Fluid RBC TNR 12/08/16 03:48 Fluid Seg Neutrophils TNR 12/08/16 03:48 Fluid Lymphocytes TNR 12/08/16 03:48 Fluid Reactive Lymphs TNR 12/08/16 03:48 Fluid Monocytes TNR 12/08/16 03:48 Fluid Eosinophils TNR 12/08/16 03:48 Fluid Basophils TNR 12/08/16 03:48 Fluid Comment See add'l comments 12/08/16 03:48 Synovial Crystals Msu crystals (NONE SEEN) 12/08/16 03:48
--- NOTE | 2016-12-11 15:12 | Progress Note ---
Assessment and Plan I and D of ankle pending cardiology work up Subjective Date of service: 12/11/16 Objective Vital signs: Vital Signs - 12hr 12/11/16 12/11/16 12/11/16 05:33 08:35 09:57 Temperature 97.6 F 98.7 F Pulse Rate 71 Pulse Rate [ 73 Left Radial] Pulse Rate [ 85 Right Radial] Respiratory 20 16 Rate Blood Pressure 190/100 Blood Pressure 172/74 [Left Arm] Blood Pressure 221/101 [Right Arm] O2 Sat by Pulse 97 97 Oximetry 12/11/16 12/11/16 12/11/16 10:00 12:49 12:50 Temperature Pulse Rate 82 82 Pulse Rate [ 72 Left Radial] Pulse Rate [ 72 Right Radial] Respiratory 22 Rate Blood Pressure 155/95 155/95 Blood Pressure [Left Arm] Blood Pressure [Right Arm] O2 Sat by Pulse Oximetry 12/11/16 13:04 Temperature Pulse Rate Pulse Rate [ Left Radial] Pulse Rate [ 84 Right Radial] Respiratory 16 Rate Blood Pressure Blood Pressure [Left Arm] Blood Pressure 155/95 [Right Arm] O2 Sat by Pulse 99 Oximetry - Labs CBC & BMP: 12/11/16 05:47 12/11/16 05:47 Labs: Abnormal lab results 12/11/16 12/11/16 Range/Units 05:47 05:47 WBC 15.6 H (4.5-11.0) K/mm3 Lymph % (Auto) 12.4 L (13.4-35.0) % [place] # 1.0 H (0.0-0.8) K/mm3 Seg Neutrophils % 80.7 H (40.0-70.0) % Seg Neutrophils # 12.6 H (1.8-7.7) K/mm3 BUN 32 H (9-20) mg/dL Glucose 130 H (75-100) mg/dL
[2016-12-11] MEDS ORDERED: MORPHINE IV ONE (15:28)
[2016-12-11] MEDS: PROCARDIA XL PO SCH (18:18)
[2016-12-11] MEDS: LOVENOX SUB-Q SCH (18:18)
--- NOTE | 2016-12-11 18:37 | Event Note ---
Date: 12/11/16 The knee aspirate on 12/10/16 pending, he was tentatively scheduled for debridement and lavage of the ankle today. Cardiology consult was requested per anesthesia and was seen by cardiology this morning. Cardiology recommended further workup, including possibly a thallium scan and therefore planned surgery was canceled pending further cardiology workup and medical stabilization. Mean time continue with antibiotics.
[2016-12-12] MEDS: MOTRIN PO SCH ×3 (08:32→22:00)
[2016-12-12] MEDS: COREG PO SCH ×2 (10:31→21:59)
[2016-12-12] MEDS: LOVENOX SUB-Q SCH (10:31)
[2016-12-12] MEDS: PROCARDIA XL PO SCH (10:32)
[2016-12-12] MEDS: ECOTRIN PO SCH (10:32)
[2016-12-12] MEDS: PROTONIX PO SCH (10:33)
[2016-12-12] MEDS: LASIX PO SCH (10:33)
[2016-12-12] MEDS: ZESTRIL PO SCH (10:33)
[2016-12-12] MEDS: DELTASONE PO SCH (10:34)
--- NOTE | 2016-12-12 12:05 | Progress Note ---
Assessment and Plan Assessment and plan: 1. L ankle acute arthritis Septic arthritis vs gout attack S/p arthrocentesis; sinovial fluid showing no MSU crystals, WBC unable to be counted and no organism; culture with no growth at 48 hours Ortho consulted and recommended medical management for gout, but was not proved yet that patient has gout I discussed with Dr. Burks that repeat arthrocentesis may be beneficial to repeat WBC count and Gram stain to definitely rule out septic arthritis; arthrocentesis repeated on 12/10, preliminary culture result - no organisms seen, PMNs Now Ortho plans elective surgery pending cardiology clearance 2. Hypertensive urgency Due to not restarting home antihypertensives on admission and severe lower extremity pain Coreg, lisinopril, lasix po restarted and IV hydralazine added BP better controlled Continue to monitor and adjust regimen as needed 3. Chronic systolic heart failure Cardiology consulted for preop clearance; records reviewed and per cardiac cath 09/2015 he has multivessel disease with EF 25-30% and he was supposed to have cardiac bypass; planning additional cardiac workup Restarted on BB, ACEI and diuretic 4. Hyperlipidemia Statin resumed 5. PVD Status post R AKA 6. DVT prophylaxis Lovenox History Interval history: still having ankle pain Ortho plans elective surgery, but needs additional cardiac work up Hospitalist Physical - Constitutional Vitals: Temp Pulse Resp BP Pulse Ox 97.9 F 77 16 171/78 98 12/12/16 09:33 12/12/16 09:33 12/12/16 09:33 12/12/16 09:33 12/12/16 09:33 General appearance: Present: no acute distress, obese - EENT Eyes: Present: PERRL, EOM intact. Absent: scleral icterus, conjunctival injection - Neck Neck: Present: supple, normal ROM. Absent: masses or JVD - Respiratory Respiratory effort: normal Respiratory: bilateral: CTA, negative: rhonchi, wheezing - Cardiovascular Rhythm: regular Heart Sounds: Present: S1 & S2. Absent: systolic murmur - Extremities Extremities: no ischemia, abnormal (R AKA, L ankle edema, warthm, tenderness) - Abdominal General gastrointestinal: soft, non-tender, non-distended, normal bowel sounds - Neurologic Neurologic: CNII-XII intact, no focal deficits Results - Labs CBC & Chem 7: 12/11/16 05:47 12/11/16 05:47 Labs: Laboratory Last Values WBC 15.6 K/mm3 (4.5-11.0) H 12/11/16 05:47 RBC 4.28 M/mm3 (3.65-5.03) 12/11/16 05:47 Hgb 11.9 gm/dl (11.8-15.2) 12/11/16 05:47 Hct 37.4 % (35.5-45.6) 12/11/16 05:47 MCV 88 fl (84-94) 12/11/16 05:47 MCH 28 pg (28-32) 12/11/16 05:47 MCHC 32 % (32-34) 12/11/16 05:47 RDW 14.3 % (13.2-15.2) 12/11/16 05:47 Plt Count 207 K/mm3 (140-440) 12/11/16 05:47 Lymph % (Auto) 12.4 % (13.4-35.0) L 12/11/16 05:47 [place] % (Auto) 6.6 % (0.0-7.3) 12/11/16 05:47 Eos % (Auto) 0.2 % (0.0-4.3) 12/11/16 05:47 Baso % (Auto) 0.1 % (0.0-1.8) 12/11/16 05:47 Lymph # 1.9 K/mm3 (1.2-5.4) 12/11/16 05:47 [place] # 1.0 K/mm3 (0.0-0.8) H 12/11/16 05:47 Eos # 0.0 K/mm3 (0.0-0.4) 12/11/16 05:47 Baso # 0.0 K/mm3 (0.0-0.1) 12/11/16 05:47 Add Manual Diff Complete 12/07/16 21:31 Total Counted 100 12/07/16 21:31 Seg Neutrophils % 80.7 % (40.0-70.0) H 12/11/16 05:47 Seg Neuts % (Manual) 83.0 % (40.0-70.0) H 12/07/16 21:31 Band Neutrophils % 0 % 12/07/16 21:31 Lymphocytes % (Manual) 8.0 % (13.4-35.0) L 12/07/16 21:31 Reactive Lymphs % (Man) 0 % 12/07/16 21:31 Monocytes % (Manual) 9.0 % (0.0-7.3) H 12/07/16 21:31 Eosinophils % (Manual) 0 % (0.0-4.3) 12/07/16 21:31 Basophils % (Manual) 0 % (0.0-1.8) 12/07/16 21:31 Metamyelocytes % 0 % 12/07/16 21:31 Myelocytes % 0 % 12/07/16 21:31 Promyelocytes % 0 % 12/07/16 21:31 Blast Cells % 0 % 12/07/16 21:31 Nucleated RBC % Not Reportable 12/07/16 21:31 Seg Neutrophils # 12.6 K/mm3 (1.8-7.7) H 12/11/16 05:47 Seg Neutrophils # Man 13.6 K/mm3 (1.8-7.7) H 12/07/16 21:31 Band Neutrophils # 0.0 K/mm3 12/07/16 21:31 Lymphocytes # (Manual) 1.3 K/mm3 (1.2-5.4) 12/07/16 21:31 Abs React Lymphs (Man) 0.0 K/mm3 12/07/16 21:31 Monocytes # (Manual) 1.5 K/mm3 (0.0-0.8) H 12/07/16 21:31 Eosinophils # (Manual) 0.0 K/mm3 (0.0-0.4) 12/07/16 21:31 Basophils # (Manual) 0.0 K/mm3 (0.0-0.1) 12/07/16 21:31 Metamyelocytes # 0.0 K/mm3 12/07/16 21:31 Myelocytes # 0.0 K/mm3 12/07/16 21:31 Promyelocytes # 0.0 K/mm3 12/07/16 21:31 Blast Cells # 0.0 K/mm3 12/07/16 21:31 WBC Morphology Not Reportable 12/07/16 21:31 Hypersegmented Neuts Not Reportable 12/07/16 21:31 Hyposegmented Neuts Not Reportable 12/07/16 21:31 Hypogranular Neuts Not Reportable 12/07/16 21:31 Smudge Cells Not Reportable 12/07/16 21:31 Toxic Granulation Not Reportable 12/07/16 21:31 Toxic Vacuolation Not Reportable 12/07/16 21:31 Dohle Bodies Not Reportable 12/07/16 21:31 Pelger-Huet Anomaly Not Reportable 12/07/16 21:31 Tonie Rods Not Reportable 12/07/16 21:31 Platelet Estimate Consistent w auto 12/07/16 21:31 Clumped Platelets Not Reportable 12/07/16 21:31 Plt Clumps, EDTA Not Reportable 12/07/16 21:31 Large Platelets Not Reportable 12/07/16 21:31 Giant Platelets Not Reportable 12/07/16 21:31 Platelet Satelliting Not Reportable 12/07/16 21:31 Plt Morphology Comment Not Reportable 12/07/16 21:31 RBC Morphology Normal 12/07/16 21:31 Dimorphic RBCs Not Reportable 12/07/16 21:31 Polychromasia Not Reportable 12/07/16 21:31 Hypochromasia Not Reportable 12/07/16 21:31 Poikilocytosis Not Reportable 12/07/16 21:31 Anisocytosis Not Reportable 12/07/16 21:31 Microcytosis Not Reportable 12/07/16 21:31 Macrocytosis Not Reportable 12/07/16 21:31 Spherocytes Not Reportable 12/07/16 21:31 Pappenheimer Bodies Not Reportable 12/07/16 21:31 Sickle Cells Not Reportable 12/07/16 21:31 Target Cells Not Reportable 12/07/16 21:31 Tear Drop Cells Not Reportable 12/07/16 21:31 Ovalocytes Not Reportable 12/07/16 21:31 Helmet Cells Not Reportable 12/07/16 21:31 [place] Bodies Not Reportable 12/07/16 21:31 [place] Rings Not Reportable 12/07/16 21:31 [place] Cells Not Reportable 12/07/16 21:31 Bite Cells Not Reportable 12/07/16 21:31 Crenated Cell Not Reportable 12/07/16 21:31 Elliptocytes Not Reportable 12/07/16 21:31 Acanthocytes (Spur) Not Reportable 12/07/16 21:31 Rouleaux Not Reportable 12/07/16 21:31 Hemoglobin C Crystals Not Reportable 12/07/16 21:31 Schistocytes Not Reportable 12/07/16 21:31 Malaria parasites Not Reportable 12/07/16 21:31 ESR 47 mm/Hr (0-20) 12/07/16 21:31 Bam Bodies Not Reportable 12/07/16 21:31 Hem Pathologist Commnt No 12/07/16 21:31 PT 14.0 Sec. (12.2-14.9) 12/08/16 02:08 INR 1.09 (0.87-1.13) 12/08/16 02:08 Sodium 138 mmol/L (137-145) 12/11/16 05:47 Potassium 3.8 mmol/L (3.6-5.0) 12/11/16 05:47 Chloride 101.4 mmol/L (98-107) 12/11/16 05:47 Carbon Dioxide 25 mmol/L (22-30) 12/11/16 05:47 Anion Gap 15 mmol/L 12/11/16 05:47 BUN 32 mg/dL (9-20) H 12/11/16 05:47 Creatinine 1.2 mg/dL (0.8-1.5) 12/11/16 05:47 Estimated GFR > 60 ml/min 12/11/16 05:47 BUN/Creatinine Ratio 26.66 % 12/11/16 05:47 Glucose 130 mg/dL (75-100) H 12/11/16 05:47 Lactic Acid 2.10 mmol/L (0.7-2.0) H* 12/08/16 02:08 Uric Acid 12.0 mg/dL (3.5-7.6) H 12/07/16 21:31 Calcium 8.6 mg/dL (8.4-10.2) 12/11/16 05:47 Total Creatine Kinase 531 units/L (55-170) H 12/08/16 02:08 C-Reactive Protein 2.80 mg/dL (0.00-1.30) H 12/07/16 21:31 Urine Color Yellow (Yellow) 12/08/16 01:26 Urine Turbidity Clear (Clear) 12/08/16 01:26 Urine pH 5.0 (5.0-7.0) 12/08/16 01:26 Ur Specific [place] 1.020 (1.003-1.030) 12/08/16 01:26 Urine Protein <15 mg/dl mg/dL (Negative) 12/08/16 01:26 Urine Glucose (UA) Neg mg/dL (Negative) 12/08/16 01:26 Urine Ketones Neg mg/dL (Negative) 12/08/16 01:26 Urine Blood Neg (Negative) 12/08/16 01:26 Urine Nitrite Neg (Negative) 12/08/16 01:26 Urine Bilirubin Neg (Negative) 12/08/16 01:26 Urine Urobilinogen < 2.0 mg/dL (<2.0) 12/08/16 01:26 Ur Leukocyte Esterase Neg (Negative) 12/08/16 01:26 Urine WBC (Auto) 1.0 /HPF (0.0-6.0) 12/08/16 01:26 Urine RBC (Auto) 4.0 /HPF (0.0-6.0) 12/08/16 01:26 U Epithel Cells (Auto) < 1.0 /HPF (0-13.0) 12/08/16 01:26 Hyaline Casts 5 /LPF 12/08/16 01:26 Urine Mucus Few /HPF 12/08/16 01:26 Fluid Type Synovial 12/08/16 03:48 Fluid Color Red 12/08/16 03:48 Fluid Appearance Turbid 12/08/16 03:48 Fluid WBC TNR 12/08/16 03:48 Fluid RBC TNR 12/08/16 03:48 Fluid Seg Neutrophils TNR 12/08/16 03:48 Fluid Lymphocytes TNR 12/08/16 03:48 Fluid Reactive Lymphs TNR 12/08/16 03:48 Fluid Monocytes TNR 12/08/16 03:48 Fluid Eosinophils TNR 12/08/16 03:48 Fluid Basophils TNR 12/08/16 03:48 Fluid Comment See add'l comments 12/08/16 03:48 Synovial Crystals Msu crystals (NONE SEEN) 12/08/16 03:48
--- NOTE | 2016-12-12 13:49 | Progress Note ---
Assessment and Plan - Patient Problems (1) Preoperative cardiovascular examination Current Visit: Yes Status: Acute Plan to address problem: He has a history of coronary artery disease and ischemic cardiomyopathy. Cardiac catheterization a year ago in September 2015 demonstrated multivessel coronary disease, with ischemic cardiomyopathy, ejection fraction 25-30%. On the cardiac catheterization report, he was recommended for CT surgery assessment for possible coronary artery bypass. However, the patient states that he did not receive coronary bypass, and it's uncertain what alternative therapies were administered for his coronary disease. I also do not have records of any further ischemic cardiac workup since that time. Before elective surgery is performed, need to get further assessment of his coronary status, with careful review of his outpatient records. In addition, the patient remains severely hypertensive on his hypertension needs to be under better control prior to anticipated surgery. We'll discuss with anesthesiology. Subjective Date of service: 12/12/16 Interval history: Patient is comfortable, in no acute distress. He is awaiting surgery for debridement of his left ankle infection. Objective Vital Signs Temp Pulse Pulse Resp BP BP Pulse Ox 12/12/16 13:09 78 16 139/63 99 12/12/16 09:33 97.9 F 77 16 171/78 98 12/12/16 05:00 98.2 F 74 16 117/57 12/12/16 00:00 97.4 F L 73 18 125/60 98 12/11/16 23:00 65 12/11/16 22:57 73 156/68 12/11/16 19:00 98.0 F 73 18 156/68 12/11/16 18:19 78 174/95 12/11/16 17:50 84 155/95 12/11/16 15:00 82 - Physical Examination General: No Apparent Distress HEENT: Positive: PERRL Neck: Positive: neck supple Cardiac: Positive: Reg Rate and Rhythm Lungs: Positive: Decreased Breath Sounds Neuro: Positive: Grossly Intact, Other (right above-knee amputation) Abdomen: Positive: Soft Skin: Positive: Clear Musculoskeletal: other (right above-knee amputation) Extremities: Absent: edema
[2016-12-12] MEDS: PERCOCET 5/325 PO PRN (19:21)
[2016-12-13] MEDS ORDERED: LEXISCAN IV ONE ×2 (09:28→10:00)
--- NOTE | 2016-12-13 13:35 | Progress Note ---
Assessment and Plan Assessment and plan: 1. L ankle acute arthritis Septic arthritis vs gout attack S/p arthrocentesis; sinovial fluid showing no MSU crystals, WBC unable to be counted and no organism; culture with no growth at 48 hours Ortho consulted and recommended medical management for gout, but was not proved yet that patient has gout I discussed with Dr. Burks that repeat arthrocentesis may be beneficial to repeat WBC count and Gram stain to definitely rule out septic arthritis; arthrocentesis repeated on 12/10, preliminary culture result - no organisms seen, PMNs Now Ortho plans elective surgery pending cardiology clearance 2. Hypertensive urgency Due to not restarting home antihypertensives on admission and severe lower extremity pain Coreg, lisinopril, lasix po restarted and IV hydralazine added BP better controlled Continue to monitor and adjust regimen as needed 3. 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 Hyperlipidemia Statin resumed 5. PVD Status post R AKA 6. DVT prophylaxis Lovenox History Interval history: still having ankle pain Ortho plans elective surgery, but needs additional cardiac work up; s/p stress test this morning Hospitalist Physical - Constitutional Vitals: Temp Pulse Resp BP Pulse Ox 98.0 F 87 16 135/74 98 12/13/16 10:11 12/13/16 10:48 12/13/16 10:11 12/13/16 10:48 12/13/16 10:11 General appearance: Present: no acute distress, obese - EENT Eyes: Present: PERRL, EOM intact - Neck Neck: Present: supple, normal ROM. Absent: masses or JVD - Respiratory Respiratory effort: normal Respiratory: bilateral: diminished, negative: rhonchi, wheezing - Cardiovascular Rhythm: other (tachycardic) Heart Sounds: Present: S1 & S2. Absent: systolic murmur - Extremities Extremities: no ischemia, abnormal (R AKA, L ankle edema, warthm and tenderness) - Abdominal General gastrointestinal: soft, non-tender, non-distended, normal bowel sounds - Neurologic Neurologic: CNII-XII intact, no focal deficits Results - Labs CBC & Chem 7: 05/06/17 05:47 12/11/16 05:47 Labs: Laboratory Last Values WBC 15.6 K/mm3 (4.5-11.0) H 12/11/16 05:47 RBC 4.28 M/mm3 (3.65-5.03) 12/11/16 05:47 Hgb 11.9 gm/dl (11.8-15.2) 12/11/16 05:47 Hct 37.4 % (35.5-45.6) 12/11/16 05:47 MCV 88 fl (84-94) 12/11/16 05:47 MCH 28 pg (28-32) 12/11/16 05:47 MCHC 32 % (32-34) 12/11/16 05:47 RDW 14.3 % (13.2-15.2) 12/11/16 05:47 Plt Count 207 K/mm3 (140-440) 12/11/16 05:47 Lymph % (Auto) 12.4 % (13.4-35.0) L 12/11/16 05:47 [place] % (Auto) 6.6 % (0.0-7.3) 12/11/16 05:47 Eos % (Auto) 0.2 % (0.0-4.3) 12/11/16 05:47 Baso % (Auto) 0.1 % (0.0-1.8) 12/11/16 05:47 Lymph # 1.9 K/mm3 (1.2-5.4) 12/11/16 05:47 [place] # 1.0 K/mm3 (0.0-0.8) H 12/11/16 05:47 Eos # 0.0 K/mm3 (0.0-0.4) 12/11/16 05:47 Baso # 0.0 K/mm3 (0.0-0.1) 12/11/16 05:47 Add Manual Diff Complete 12/07/16 21:31 Total Counted 100 12/07/16 21:31 Seg Neutrophils % 80.7 % (40.0-70.0) H 12/11/16 05:47 Seg Neuts % (Manual) 83.0 % (40.0-70.0) H 12/07/16 21:31 Band Neutrophils % 0 % 12/07/16 21:31 Lymphocytes % (Manual) 8.0 % (13.4-35.0) L 12/07/16 21:31 Reactive Lymphs % (Man) 0 % 12/07/16 21:31 Monocytes % (Manual) 9.0 % (0.0-7.3) H 12/07/16 21:31 Eosinophils % (Manual) 0 % (0.0-4.3) 12/07/16 21:31 Basophils % (Manual) 0 % (0.0-1.8) 12/07/16 21:31 Metamyelocytes % 0 % 12/07/16 21:31 Myelocytes % 0 % 12/07/16 21:31 Promyelocytes % 0 % 12/07/16 21:31 Blast Cells % 0 % 12/07/16 21:31 Nucleated RBC % Not Reportable 12/07/16 21:31 Seg Neutrophils # 12.6 K/mm3 (1.8-7.7) H 12/11/16 05:47 Seg Neutrophils # Man 13.6 K/mm3 (1.8-7.7) H 12/07/16 21:31 Band Neutrophils # 0.0 K/mm3 12/07/16 21:31 Lymphocytes # (Manual) 1.3 K/mm3 (1.2-5.4) 12/07/16 21:31 Abs React Lymphs (Man) 0.0 K/mm3 12/07/16 21:31 Monocytes # (Manual) 1.5 K/mm3 (0.0-0.8) H 12/07/16 21:31 Eosinophils # (Manual) 0.0 K/mm3 (0.0-0.4) 12/07/16 21:31 Basophils # (Manual) 0.0 K/mm3 (0.0-0.1) 12/07/16 21:31 Metamyelocytes # 0.0 K/mm3 12/07/16 21:31 Myelocytes # 0.0 K/mm3 12/07/16 21:31 Promyelocytes # 0.0 K/mm3 12/07/16 21:31 Blast Cells # 0.0 K/mm3 12/07/16 21:31 WBC Morphology Not Reportable 12/07/16 21:31 Hypersegmented Neuts Not Reportable 12/07/16 21:31 Hyposegmented Neuts Not Reportable 12/07/16 21:31 Hypogranular Neuts Not Reportable 12/07/16 21:31 Smudge Cells Not Reportable 12/07/16 21:31 Toxic Granulation Not Reportable 12/07/16 21:31 Toxic Vacuolation Not Reportable 12/07/16 21:31 Dohle Bodies Not Reportable 12/07/16 21:31 Pelger-[place]uet Anomaly Not Reportable 12/07/16 21:31 Tonie Rods Not Reportable 12/07/16 21:31 Platelet Estimate Consistent w auto 12/07/16 21:31 Clumped Platelets Not Reportable 12/07/16 21:31 Plt Clumps, EDTA Not Reportable 12/07/16 21:31 Large Platelets Not Reportable 12/07/16 21:31 Giant Platelets Not Reportable 12/07/16 21:31 Platelet Satelliting Not Reportable 12/07/16 21:31 Plt Morphology Comment Not Reportable 12/07/16 21:31 RBC Morphology Normal 12/07/16 21:31 Dimorphic RBCs Not Reportable 12/07/16 21:31 Polychromasia Not Reportable 12/07/16 21:31 Hypochromasia Not Reportable 12/07/16 21:31 Poikilocytosis Not Reportable 12/07/16 21:31 Anisocytosis Not Reportable 12/07/16 21:31 Microcytosis Not Reportable 12/07/16 21:31 Macrocytosis Not Reportable 12/07/16 21:31 Spherocytes Not Reportable 12/07/16 21:31 Pappenheimer Bodies Not Reportable 12/07/16 21:31 Sickle Cells Not Reportable 12/07/16 21:31 Target Cells Not Reportable 12/07/16 21:31 Tear Drop Cells Not Reportable 12/07/16 21:31 Ovalocytes Not Reportable 12/07/16 21:31 Helmet Cells Not Reportable 12/07/16 21:31 [place] Bodies Not Reportable 12/07/16 21:31 [place] Rings Not Reportable 12/07/16 21:31 [place] Cells Not Reportable 12/07/16 21:31 Bite Cells Not Reportable 12/07/16 21:31 Crenated Cell Not Reportable 12/07/16 21:31 Elliptocytes Not Reportable 12/07/16 21:31 Acanthocytes (Spur) Not Reportable 12/07/16 21:31 Rouleaux Not Reportable 12/07/16 21:31 Hemoglobin C Crystals Not Reportable 12/07/16 21:31 Schistocytes Not Reportable 12/07/16 21:31 Malaria parasites Not Reportable 12/07/16 21:31 ESR 47 mm/Hr (0-20) 12/07/16 21:31 Bam Bodies Not Reportable 12/07/16 21:31 Hem Pathologist Commnt No 12/07/16 21:31 PT 14.0 Sec. (12.2-14.9) 12/08/16 02:08 INR 1.09 (0.87-1.13) 12/08/16 02:08 Sodium 138 mmol/L (137-145) 12/11/16 05:47 Potassium 3.8 mmol/L (3.6-5.0) 12/11/16 05:47 Chloride 101.4 mmol/L (98-107) 12/11/16 05:47 Carbon Dioxide 25 mmol/L (22-30) 12/11/16 05:47 Anion Gap 15 mmol/L 12/11/16 05:47 BUN 32 mg/dL (9-20) H 12/11/16 05:47 Creatinine 1.2 mg/dL (0.8-1.5) 12/11/16 05:47 Estimated GFR > 60 ml/min 12/11/16 05:47 BUN/Creatinine Ratio 26.66 % 12/11/16 05:47 Glucose 130 mg/dL (75-100) H 12/11/16 05:47 Lactic Acid 2.10 mmol/L (0.7-2.0) H* 12/08/16 02:08 Uric Acid 12.0 mg/dL (3.5-7.6) H 12/07/16 21:31 Calcium 8.6 mg/dL (8.4-10.2) 12/11/16 05:47 Total Creatine Kinase 99 units/L (55-170) 12/13/16 07:13 Troponin T < 0.010 ng/mL (0.00-0.029) 12/13/16 07:13 C-Reactive Protein 2.80 mg/dL (0.00-1.30) H 12/07/16 21:31 Urine Color Yellow (Yellow) 12/08/16 01:26 Urine Turbidity Clear (Clear) 12/08/16 01:26 Urine pH 5.0 (5.0-7.0) 12/08/16 01:26 Ur Specific [place] 1.020 (1.003-1.030) 12/08/16 01:26 Urine Protein <15 mg/dl mg/dL (Negative) 12/08/16 01:26 Urine Glucose (UA) Neg mg/dL (Negative) 12/08/16 01:26 Urine Ketones Neg mg/dL (Negative) 12/08/16 01:26 Urine Blood Neg (Negative) 12/08/16 01:26 Urine Nitrite Neg (Negative) 12/08/16 01:26 Urine Bilirubin Neg (Negative) 12/08/16 01:26 Urine Urobilinogen < 2.0 mg/dL (<2.0) 12/08/16 01:26 Ur Leukocyte Esterase Neg (Negative) 12/08/16 01:26 Urine WBC (Auto) 1.0 /HPF (0.0-6.0) 12/08/16 01:26 Urine RBC (Auto) 4.0 /HPF (0.0-6.0) 12/08/16 01:26 U Epithel Cells (Auto) < 1.0 /HPF (0-13.0) 12/08/16 01:26 Hyaline Casts 5 /LPF 12/08/16 01:26 Urine Mucus Few /HPF 12/08/16 01:26 Fluid Type Synovial 12/08/16 03:48 Fluid Color Red 12/08/16 03:48 Fluid Appearance Turbid 12/08/16 03:48 Fluid WBC TNR 12/08/16 03:48 Fluid RBC TNR 12/08/16 03:48 Fluid Seg Neutrophils TNR 12/08/16 03:48 Fluid Lymphocytes TNR 12/08/16 03:48 Fluid Reactive Lymphs TNR 12/08/16 03:48 Fluid Monocytes TNR 12/08/16 03:48 Fluid Eosinophils TNR 12/08/16 03:48 Fluid Basophils TNR 12/08/16 03:48 Fluid Comment See add'l comments 12/08/16 03:48 Synovial Crystals Msu crystals (NONE SEEN) 12/08/16 03:48
[2016-12-13] MEDS: LASIX PO SCH (14:05)
[2016-12-13] MEDS: ZESTRIL PO SCH (14:05)
[2016-12-13] MEDS: ECOTRIN PO SCH (14:05)
[2016-12-13] MEDS: MOTRIN PO SCH ×3 (14:06→21:42)
[2016-12-13] MEDS: COREG PO SCH ×2 (14:06→21:43)
[2016-12-13] MEDS: DELTASONE PO SCH (14:06)
[2016-12-13] MEDS: LOVENOX SUB-Q SCH (14:07)
[2016-12-13] MEDS: PROCARDIA XL PO SCH (14:10)
[2016-12-13] MEDS: PROTONIX PO SCH (14:11)
[2016-12-13] MEDS: PERCOCET 5/325 PO PRN (14:30)
--- NOTE | 2016-12-13 14:53 | Progress Note ---
Assessment and Plan - Patient Problems (1) Preoperative cardiovascular examination Current Visit: Yes Status: Acute Plan to address problem: Patient is awaiting ankle surgery. His coronary angiogram from 09/2015 was reviewed. He has diffuse severe 3 vessel disease, including 40-50% left main. He was referred to [place] where surgery was declined due to his multiple co- morbidities. Carotid disease, LV dysfunction were stated as poor indicators for a successful surgical outcome. The patient is therefore on medical therapy for his severe burden of CAD and ischemic cardiomyopathy. The angiographic review does not reveal any targets for percutaneous intervention that would be of benefit. Pers thallium done today-multiple fixed defects, no reversible ischemia. He is therefore high risk for non-cardiac surgery Recommandation: OK to proceed with surgery-high emma-op risk-SD, AF and CHF. Post operatively; recommend ICU for at least 24-48hrs, betablockers and nitrates as tolerated, and daily ECG X3. Subjective Date of service: 12/13/16 Interval history: Patient is awaiting ankle surgery. His coronary angiogram from 09/2015 was reviewed. He has diffuse severe 3 vessel disease, including 40-50% left main. He was referred to [place] where surgery was declined due to his multiple co- morbidities. Carotid disease, LV dysfunction were stated as poor indicators for a successful surgical outcome. The patient is therefore on medical therapy for his severe burden of CAD and ischemic cardiomyopathy. The angiographic review does not reveal any targets for percutaneous intervention that would be of benefit. He is therefore high risk for non-cardiac surgery. Objective Vital Signs Temp Pulse Pulse Pulse Resp BP BP 12/13/16 14:09 20 12/13/16 14:06 76 20 139/70 12/13/16 14:05 76 139/70 12/13/16 10:48 87 135/74 12/13/16 10:47 88 142/70 12/13/16 10:46 91 H 153/69 12/13/16 10:45 94 H 146/106 12/13/16 10:44 91 H 186/107 12/13/16 10:11 98.0 F 71 16 135/68 12/13/16 10:00 73 150/79 12/13/16 04:00 97.9 F 71 18 161/77 12/12/16 23:00 70 12/12/16 21:59 78 136/60 12/12/16 20:00 97.6 F 78 16 136/60 12/12/16 18:51 75 134/61 12/12/16 15:00 66 Pulse Ox 12/13/16 14:09 12/13/16 14:06 12/13/16 14:05 12/13/16 10:48 12/13/16 10:47 12/13/16 10:46 12/13/16 10:45 12/13/16 10:44 12/13/16 10:11 98 12/13/16 10:00 12/13/16 04:00 98 12/12/16 23:00 12/12/16 21:59 12/12/16 20:00 97 12/12/16 18:51 12/12/16 15:00 - Physical Examination General: No Apparent Distress HEENT: Positive: PERRL Neck: Positive: neck supple Cardiac: Positive: Reg Rate and Rhythm Lungs: Positive: Decreased Breath Sounds Neuro: Positive: Grossly Intact, Other (right above-knee amputation) Abdomen: Positive: Soft Skin: Positive: Clear Musculoskeletal: other (right above-knee amputation) Extremities: Absent: edema
--- NOTE | 2016-12-13 14:57 | Event Note ---
Date: 12/13/16 Patient is awaiting ankle surgery. His coronary angiogram from 09/2015 was reviewed. He has diffuse severe 3 vessel disease, including 40-50% left main. He was referred to [place] where surgery was declined due to his multiple co- morbidities. Carotid disease, LV dysfunction were stated as poor indicators for a successful surgical outcome. The patient is therefore on medical therapy for his severe burden of CAD and ischemic cardiomyopathy. The angiographic review does not reveal any targets for percutaneous intervention that would be of benefit. Pers thallium done today-multiple fixed defects, no reversible ischemia. He is therefore high risk for non-cardiac surgery Recommandation: OK to proceed with surgery-high emma-op risk-SC, AF and CHF. Post operatively; recommend ICU for at least 24-48hrs, betablockers and nitrates as tolerated, and daily ECG X3
--- NOTE | 2016-12-13 17:22 | Progress Note ---
Assessment and Plan - Patient Problems (1) Left ankle pain Current Visit: Yes Status: Acute Qualifiers: Chronicity: unspecified Qualified Code(s): M25.572 - Pain in left ankle and joints of left foot Plan to address problem: Previoud cultures/ gm stain neg for bacteria. Cell count/ diff unawailable. Ankle re aspirated , fluid to lab Cont [facility] antibiotics pending cultures. Subjective Date of service: 12/13/16 Interval history: Left ankle with swelling, improved, pain improved. Planned surgery was canceled because of cardiac status. Today clinically he appears improved, we' ll continue to watch on antibiotics, reassess tomorrow. If swelling of pain is worsening then consider drainage otherwise will continue with antibiotics, consider any consurt for appropriate antibiotic therapy. Objective Vital signs: Vital Signs - 12hr 12/13/16 12/13/16 12/13/16 10:00 10:11 10:44 Temperature 98.0 F Pulse Rate 76 91 H Pulse Rate [ 71 Right Radial] Respiratory 16 Rate Blood Pressure 150/79 186/107 Blood Pressure 135/68 [Right Arm] O2 Sat by Pulse 94 98 Oximetry 12/13/16 12/13/16 12/13/16 10:45 10:46 10:47 Temperature Pulse Rate 94 H 91 H 88 Pulse Rate [ Right Radial] Respiratory Rate Blood Pressure 146/106 153/69 142/70 Blood Pressure [Right Arm] O2 Sat by Pulse Oximetry 12/13/16 12/13/16 12/13/16 10:48 14:05 14:06 Temperature Pulse Rate 87 76 76 Pulse Rate [ Right Radial] Respiratory 20 Rate Blood Pressure 135/74 139/70 139/70 Blood Pressure [Right Arm] O2 Sat by Pulse Oximetry 12/13/16 14:09 Temperature Pulse Rate Pulse Rate [ Right Radial] Respiratory 20 Rate Blood Pressure Blood Pressure [Right Arm] O2 Sat by Pulse Oximetry - Labs CBC & BMP: 12/16/16 10:37 12/16/16 10:37
--- NOTE | 2016-12-14 02:28 | Treadmill Report ---
THALLIUM STRESS TEST LEFT VENTRICLE: Left ventricle is moderately dilated. Perfusion study demonstrates fixed apical defect. Another fixed basal and distal inferior defect is noted. On the resting study, there is no demonstration of significant reversible ischemia. Gated analysis demonstrates severe left ventricular systolic dysfunction, ejection fraction 18%. CONCLUSION: Abnormal perfusion study, demonstrating a severe dilated ischemic cardiomyopathy. The perfusion study demonstrates multiple fixed defects, no demonstration of significant reversible ischemia. Clinical correlation is recommended. [facility]# [id number] [place]/NTS
[2016-12-14 05:51] LABS: Hematocrit 40.2 % (35.5-45.6); Hemoglobin 13.1 gm/dl (11.8-15.2); Mean Corpuscular HGB Conc 33 % (32-34); Mean Corpuscular Hemoglobin 28 pg (28-32); Mean Corpuscular Volume 87 fl (84-94); Red Blood Count 4.61 M/mm3 (3.65-5.03); White Blood Count 23.4 K/mm3 (4.5-11.0)
[2016-12-14 05:59] LABS: BUN/Creatinine Ratio 36.36; Blood Urea Nitrogen 40 mg/dL (9-20); Calcium 8.9 mg/dL (8.4-10.2); Carbon Dioxide 25 mmol/L (22-30); Chloride 100.3 mmol/L (98-107); Glucose 111 mg/dL (75-100); Sodium 137 mmol/L (137-145)
[2016-12-14] MEDS: MOTRIN PO SCH ×3 (06:08→21:45)
[2016-12-14 06:48] LABS: Basophils % (Manual) 0 % (0.0-1.8); Blastocytes % (Manual) 0 %; Diff Status Complete; Eosinophils % (Manual) 0 % (0.0-4.3); Platelet Estimate Consistent w Auto; RBC Morphology Normal
[2016-12-14 06:49] LABS: Platelet Count 218 K/mm3 (140-440)
[2016-12-14 07:37] LABS: Anion Gap 18 mmol/L; Potassium 5.9 mmol/L (3.6-5.0)
--- NOTE | 2016-12-14 08:34 | Progress Note ---
Assessment and Plan Assessment and plan: 66-year-old man who presents with left ankle pain, x-rays suspicious for osteomyelitis of the ankle 1. L ankle pain/sepsis/left ankle osteomyelitis Patient's was initially empirically treated for gouty attack, he received prednisone, he also went on to have arthrocentesis which showed few white blood cells, and cultures were negative , patient is planned for surgical I&D and hopefully bone biopsy by orthopedic surgery ID consult, hold antibiotics for now, continue pain management Cardiology input appreciated patient is moderate to high risk for procedure, but is medically optimized for planned procedure 2. Hypertensive urgency Blood pressure currently improved on current medications 3. 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 Hyperlipidemia Statin resumed 5. PVD Status post R AKA 6. DVT prophylaxis Lovenox History Interval history: He continues to complain of left ankle pain, decreased range of motion he states that the pain is worse when he tries to bear weight on the ankle. Pain ranges anywhere between 6-8 out of 10. It is exacerbated by bearing weight on it, the pain is a dull pain deep inside his ankle, I does not radiate anywhere. He denies fevers, denies chills Hospitalist Physical - Physical exam Narrative exam: General: Patient appears well in no distress HEENT: MMM, EOMI cardiac: S1-S2 heard lungs: clear to auscultation, abdomen: soft, nontender, nondistended bowel sounds positive extremities: Status post right AKA, no edema clubbing or cyanosis, left ankle range of motion is severely decreased due to pain, and there is no palpable effusion, no warmth, no erythema, no swelling Skin: no rash or lesion Neuro: no focal deficit Psych: appropriate behavior and mood, cognition intact - Constitutional Vitals: Temp Pulse Resp BP Pulse Ox 98.0 F 71 20 142/70 98 12/14/16 06:12 12/14/16 06:12 12/14/16 06:12 12/14/16 06:12 12/14/16 06:12 General appearance: Present: no acute distress, obese Results - Labs CBC & Chem 7: 12/14/16 05:06 12/14/16 05:06 Labs: Laboratory Last Values WBC 23.4 K/mm3 (4.5-11.0) H 12/14/16 05:06 RBC 4.61 M/mm3 (3.65-5.03) 12/14/16 05:06 Hgb 13.1 gm/dl (11.8-15.2) 12/14/16 05:06 Hct 40.2 % (35.5-45.6) 12/14/16 05:06 MCV 87 fl (84-94) 12/14/16 05:06 MCH 28 pg (28-32) 12/14/16 05:06 MCHC 33 % (32-34) 12/14/16 05:06 RDW 14.0 % (13.2-15.2) 12/14/16 05:06 Plt Count 218 K/mm3 (140-440) 12/14/16 05:06 Lymph % (Auto) 12.4 % (13.4-35.0) L 12/11/16 05:47 Armstrong % (Auto) 6.6 % (0.0-7.3) 12/11/16 05:47 Eos % (Auto) 0.2 % (0.0-4.3) 12/11/16 05:47 Baso % (Auto) 0.1 % (0.0-1.8) 12/11/16 05:47 Lymph # 1.9 K/mm3 (1.2-5.4) 12/11/16 05:47 Armstrong # 1.0 K/mm3 (0.0-0.8) H 12/11/16 05:47 Eos # 0.0 K/mm3 (0.0-0.4) 12/11/16 05:47 Baso # 0.0 K/mm3 (0.0-0.1) 12/11/16 05:47 Add Manual Diff Complete 12/14/16 05:06 Total Counted 100 12/14/16 05:06 Seg Neutrophils % 80.7 % (40.0-70.0) H 12/11/16 05:47 Seg Neuts % (Manual) 65.0 % (40.0-70.0) 12/14/16 05:06 Band Neutrophils % 13.0 % 12/14/16 05:06 Lymphocytes % (Manual) 14.0 % (13.4-35.0) 12/14/16 05:06 Reactive Lymphs % (Man) 0 % 12/14/16 05:06 Monocytes % (Manual) 4.0 % (0.0-7.3) 12/14/16 05:06 Eosinophils % (Manual) 0 % (0.0-4.3) 12/14/16 05:06 Basophils % (Manual) 0 % (0.0-1.8) 12/14/16 05:06 Metamyelocytes % 4.0 % 12/14/16 05:06 Myelocytes % 0 % 12/14/16 05:06 Promyelocytes % 0 % 12/14/16 05:06 Blast Cells % 0 % 12/14/16 05:06 Nucleated RBC % Not Reportable 12/14/16 05:06 Seg Neutrophils # 12.6 K/mm3 (1.8-7.7) H 12/11/16 05:47 Seg Neutrophils # Man 15.2 K/mm3 (1.8-7.7) H 12/14/16 05:06 Band Neutrophils # 3.0 K/mm3 12/14/16 05:06 Lymphocytes # (Manual) 3.3 K/mm3 (1.2-5.4) 12/14/16 05:06 Abs React Lymphs (Man) 0.0 K/mm3 12/14/16 05:06 Monocytes # (Manual) 0.9 K/mm3 (0.0-0.8) H 12/14/16 05:06 Eosinophils # (Manual) 0.0 K/mm3 (0.0-0.4) 12/14/16 05:06 Basophils # (Manual) 0.0 K/mm3 (0.0-0.1) 12/14/16 05:06 Metamyelocytes # 0.9 K/mm3 12/14/16 05:06 Myelocytes # 0.0 K/mm3 12/14/16 05:06 Promyelocytes # 0.0 K/mm3 12/14/16 05:06 Blast Cells # 0.0 K/mm3 12/14/16 05:06 WBC Morphology Not Reportable 12/14/16 05:06 Hypersegmented Neuts Not Reportable 12/14/16 05:06 Hyposegmented Neuts Not Reportable 12/14/16 05:06 Hypogranular Neuts Not Reportable 12/14/16 05:06 Smudge Cells Not Reportable 12/14/16 05:06 Toxic Granulation Not Reportable 12/14/16 05:06 Toxic Vacuolation Not Reportable 12/14/16 05:06 Dohle Bodies Not Reportable 12/14/16 05:06 Pelger-Huet Anomaly Not Reportable 12/14/16 05:06 Tonie Rods Not Reportable 12/14/16 05:06 Platelet Estimate Consistent w auto 12/14/16 05:06 Clumped Platelets Not Reportable 12/14/16 05:06 Plt Clumps, EDTA Not Reportable 12/14/16 05:06 Large Platelets Not Reportable 12/14/16 05:06 Giant Platelets Not Reportable 12/14/16 05:06 Platelet Satelliting Not Reportable 12/14/16 05:06 Plt Morphology Comment Not Reportable 12/14/16 05:06 RBC Morphology Normal 12/14/16 05:06 Dimorphic RBCs Not Reportable 12/14/16 05:06 Polychromasia Not Reportable 12/14/16 05:06 Hypochromasia Not Reportable 12/14/16 05:06 Poikilocytosis Not Reportable 12/14/16 05:06 Anisocytosis Not Reportable 12/14/16 05:06 Microcytosis Not Reportable 12/14/16 05:06 Macrocytosis Not Reportable 12/14/16 05:06 Spherocytes Not Reportable 12/14/16 05:06 Pappenheimer Bodies Not Reportable 12/14/16 05:06 Sickle Cells Not Reportable 12/14/16 05:06 Target Cells Not Reportable 12/14/16 05:06 Tear Drop Cells Not Reportable 12/14/16 05:06 Ovalocytes Not Reportable 12/14/16 05:06 Helmet Cells Not Reportable 12/14/16 05:06 [place] Bodies Not Reportable 12/14/16 05:06 [place] Rings Not Reportable 12/14/16 05:06 Vandana Cells Not Reportable 12/14/16 05:06 Bite Cells Not Reportable 12/14/16 05:06 Crenated Cell Not Reportable 12/14/16 05:06 Elliptocytes Not Reportable 12/14/16 05:06 Acanthocytes (Spur) Not Reportable 12/14/16 05:06 Rouleaux Not Reportable 12/14/16 05:06 Hemoglobin C Crystals Not Reportable 12/14/16 05:06 Schistocytes Not Reportable 12/14/16 05:06 Malaria parasites Not Reportable 12/14/16 05:06 ESR 47 mm/Hr (0-20) 12/07/16 21:31 Bam Bodies Not Reportable 12/14/16 05:06 Hem Pathologist Commnt No 12/14/16 05:06 PT 14.0 Sec. (12.2-14.9) 12/08/16 02:08 INR 1.09 (0.87-1.13) 12/08/16 02:08 Sodium 137 mmol/L (137-145) 12/14/16 05:06 Potassium 5.9 mmol/L (3.6-5.0) H D 12/14/16 05:06 Chloride 100.3 mmol/L (98-107) 12/14/16 05:06 Carbon Dioxide 25 mmol/L (22-30) 12/14/16 05:06 Anion Gap 18 mmol/L 12/14/16 05:06 BUN 40 mg/dL (9-20) H 12/14/16 05:06 Creatinine 1.1 mg/dL (0.8-1.5) 12/14/16 05:06 Estimated GFR > 60 ml/min 12/14/16 05:06 BUN/Creatinine Ratio 36.36 % 12/14/16 05:06 Glucose 111 mg/dL (75-100) H 12/14/16 05:06 Lactic Acid 2.10 mmol/L (0.7-2.0) H* 12/08/16 02:08 Uric Acid 12.0 mg/dL (3.5-7.6) H 12/07/16 21:31 Calcium 8.9 mg/dL (8.4-10.2) 12/14/16 05:06 Total Creatine Kinase 99 units/L (55-170) 12/13/16 07:13 Troponin T < 0.010 ng/mL (0.00-0.029) 12/13/16 14:04 C-Reactive Protein 2.80 mg/dL (0.00-1.30) H 12/07/16 21:31 Urine Color Yellow (Yellow) 12/08/16 01:26 Urine Turbidity Clear (Clear) 12/08/16 01:26 Urine pH 5.0 (5.0-7.0) 12/08/16 01:26 Ur Specific [place] 1.020 (1.003-1.030) 12/08/16 01:26 Urine Protein <15 mg/dl mg/dL (Negative) 12/08/16 01:26 Urine Glucose (UA) Neg mg/dL (Negative) 12/08/16 01:26 Urine Ketones Neg mg/dL (Negative) 12/08/16 01:26 Urine Blood Neg (Negative) 12/08/16 01:26 Urine Nitrite Neg (Negative) 12/08/16 01:26 Urine Bilirubin Neg (Negative) 12/08/16 01:26 Urine Urobilinogen < 2.0 mg/dL (<2.0) 12/08/16 01:26 Ur Leukocyte Esterase Neg (Negative) 12/08/16 01:26 Urine WBC (Auto) 1.0 /HPF (0.0-6.0) 12/08/16 01:26 Urine RBC (Auto) 4.0 /HPF (0.0-6.0) 12/08/16 01:26 U Epithel Cells (Auto) < 1.0 /HPF (0-13.0) 12/08/16 01:26 Hyaline Casts 5 /LPF 12/08/16 01:26 Urine Mucus Few /HPF 12/08/16 01:26 Fluid Type Synovial 12/08/16 03:48 Fluid Color Red 12/08/16 03:48 Fluid Appearance Turbid 12/08/16 03:48 Fluid WBC TNR 12/08/16 03:48 Fluid RBC TNR 12/08/16 03:48 Fluid Seg Neutrophils TNR 12/08/16 03:48 Fluid Lymphocytes TNR 12/08/16 03:48 Fluid Reactive Lymphs TNR 12/08/16 03:48 Fluid Monocytes TNR 12/08/16 03:48 Fluid Eosinophils TNR 12/08/16 03:48 Fluid Basophils TNR 12/08/16 03:48 Fluid Comment See add'l comments 12/08/16 03:48 Synovial Crystals Msu crystals (NONE SEEN) 12/08/16 03:48
--- NOTE | 2016-12-14 11:03 | Progress Note ---
Assessment and Plan Left Ankle pain/arthritis Diffuse severe 3 vessel coronary disease on [facility] 09/2015 he was referred to [place], 10/2015, where surgery was declined due to his multiple co-morbidities. Carotid disease PAD s/p Rt BKA Ischemic cardiomyopathy Hypertension Persantine thallium this admission reports multiple fixed defects, no reversible ischemia. Recommendations: OK to proceed with surgery-high emma-op risk-WV, AF and CHF. Post operatively; recommend ICU for at least 24-48hrs, betablockers and nitrates as tolerated, and daily ECG X3 Subjective Date of service: 12/14/16 Interval history: Patient is resting in bed. He denies chest pain and shortness of breath. Objective Vital Signs Temp Pulse Pulse Pulse Resp BP BP 12/14/16 08:49 97.7 F 72 20 12/14/16 06:12 98.0 F 71 20 12/14/16 02:00 80 12/14/16 01:40 98.4 F 69 20 12/13/16 21:43 71 103/55 12/13/16 21:22 98.2 F 71 18 12/13/16 18:00 76 12/13/16 16:00 97.9 F 71 18 L 18 161/77 12/13/16 14:30 20 12/13/16 14:09 20 12/13/16 14:06 76 20 139/70 12/13/16 14:05 76 139/70 BP Pulse Ox 12/14/16 08:49 160/83 98 12/14/16 06:12 142/70 98 12/14/16 02:00 12/14/16 01:40 132/60 20 L 12/13/16 21:43 12/13/16 21:22 103/55 97 12/13/16 18:00 12/13/16 16:00 12/13/16 14:30 12/13/16 14:09 12/13/16 14:06 12/13/16 14:05 - Physical Examination General: No Apparent Distress HEENT: Positive: PERRL Neck: Positive: trachea midline Cardiac: Positive: Reg Rate and Rhythm Lungs: Positive: Decreased Breath Sounds - Labs and Meds CBC 12/14/16 Range/Units 05:06 WBC 23.4 H (4.5-11.0) K/mm3 RBC 4.61 (3.65-5.03) M/mm3 Hgb 13.1 (11.8-15.2) gm/dl Hct 40.2 (35.5-45.6) % Plt Count 218 (140-440) K/mm3 Comprehensive Metabolic Panel 12/14/16 Range/Units 05:06 Sodium 137 (137-145) mmol/L Potassium 5.9 H D (3.6-5.0) mmol/L Chloride 100.3 (98-107) mmol/L Carbon Dioxide 25 (22-30) mmol/L BUN 40 H (9-20) mg/dL Creatinine 1.1 (0.8-1.5) mg/dL Glucose 111 H (75-100) mg/dL Calcium 8.9 (8.4-10.2) mg/dL
[2016-12-14] MEDS: PROTONIX PO SCH (11:19)
[2016-12-14] MEDS: ECOTRIN PO SCH (11:19)
[2016-12-14] MEDS: LASIX PO SCH (11:20)
[2016-12-14] MEDS: DELTASONE PO SCH (11:20)
[2016-12-14] MEDS: ZESTRIL PO SCH (11:21)
[2016-12-14] MEDS: LOVENOX SUB-Q SCH (11:21)
[2016-12-14] MEDS: COREG PO SCH ×2 (11:22→21:44)
[2016-12-14] MEDS: PROCARDIA XL PO SCH (11:23)
[2016-12-15 02:00] LABS: LDH,Body Fluid > 1200; Total Protein,Body Fluid 6.3 (15.0-45.0)
[2016-12-15 02:01] LABS: pH, Body Fluid TNR
[2016-12-15] MEDS: MOTRIN PO SCH ×3 (05:54→21:24)
[2016-12-15] MEDS: ZESTRIL PO SCH (10:01)
[2016-12-15] MEDS: PROTONIX PO SCH (10:01)
[2016-12-15] MEDS: PROCARDIA XL PO SCH (10:01)
[2016-12-15] MEDS: LOVENOX SUB-Q SCH (10:01)
[2016-12-15] MEDS: COREG PO SCH ×2 (10:01→21:23)
[2016-12-15] MEDS: ECOTRIN PO SCH (10:01)
[2016-12-15] MEDS: LASIX PO SCH (10:01)
--- NOTE | 2016-12-15 10:31 | Progress Note ---
Assessment and Plan Left Ankle pain/arthritis Leukocytosis Diffuse severe 3 vessel coronary disease on [facility] 09/2015 pt was referred to [place], 10/2015, where surgery was declined due to his multiple co-morbidities. Persantine thallium this admission reports multiple fixed defects, no reversible ischemia. Patient has non-revascularizable 3 vessel coronary disease. Carotid disease PAD s/p Rt AKA Ischemic cardiomyopathy Hypertension Recommendations: Medical therapy for non-revascularizable 3 vessel coronary disease and ischemic cardiomyopathy. Subjective Date of service: 12/15/16 Interval history: Patient is resting in bed. He denies chest pain and shortness of breath. Patient reports no plans for ankle surgery. Objective Vital Signs Temp Pulse Pulse Resp BP BP Pulse Ox 12/15/16 10:01 65 163/76 12/15/16 08:00 97.3 F L 65 20 163/76 100 12/15/16 05:32 97.9 F 97 H 20 164/73 98 12/15/16 00:59 97.5 F L 72 20 141/64 100 12/14/16 21:09 97.8 F 94 H 20 145/68 98 12/14/16 20:45 72 12/14/16 16:41 97.9 F 72 20 158/72 97 12/14/16 12:52 97.5 F L 72 20 141/65 98 12/14/16 11:22 72 160/83 12/14/16 11:21 72 160/83 - Physical Examination General: No Apparent Distress HEENT: Positive: PERRL Neck: Positive: trachea midline Cardiac: Positive: Reg Rate and Rhythm Lungs: Positive: Decreased Breath Sounds Neuro: Positive: Grossly Intact, Other (right above-knee amputation) Musculoskeletal: other (right above-knee amputation)
--- NOTE | 2016-12-15 13:24 | Consultation ---
History of Present Illness - Reason for Consult Consult date: 12/15/16 Left Ankle Pain; Leukocytosis - History of Present Illness Mr. Edmondson is a 66-year-old man with a history of gout who complains of moderate- severe left ankle pain. He has a history of gout. He underwent an arthrocentesis of the left ankle vs. knee earlier during this admission with no evidence of an infectious process. He says he finds it difficult to bear weight and has limited ROM in the joint. His WBC count is increasing without other localizing signs or issues. An xray of the left ankle done on 12/08/16 shows soft tissue swelling and a joint effusion with the possibility of osteomyelitis. An MRI of the ankle is pending. He is presently on no empiric antibiotics. ID is asked to evaluate the patient's left ankle to help rule out an infection. Past History Past Medical History: CAD, hypertension, PVD Past Surgical History: Other (right AKA) Social history: denies: alcohol abuse Family history: hypertension Medications and Allergies Allergies Allergy/AdvReac Type Severity Reaction Status Date / Time No Known Allergies Allergy Verified 04/15/14 18:09 Home Medications Medication Instructions Recorded Confirmed Last Taken Type Nitroglycerin [Nitrostat] 0.4 mg SL Q5M 04/16/14 12/09/16 2 Months Ago History Furosemide [Lasix] 40 mg PO DAILY #30 tablet 04/19/14 12/09/16 1 Day Ago Rx Aspirin EC [Aspirin Enteric Coated 325 mg PO QDAY 09/19/15 12/09/16 1 Day Ago History TAB] Carvedilol [Coreg] 25 mg PO BID 09/19/15 12/09/16 1 Day Ago History Lisinopril [Zestril TAB] 20 mg PO QDAY 09/19/15 12/09/16 1 Day Ago History AtorvaSTATin [Lipitor] 40 mg PO DAILY 02/07/16 12/09/16 1 Day Ago History Potassium 20 mg PO DAILY 09/14/16 12/09/16 1 Day Ago History Active Meds: Active Medications Acetaminophen (Tylenol) 650 mg PO Q4H PRN PRN Reason: Pain MILD(1-3)/Fever >100.5/HENRY Last Admin: 12/08/16 09:16 Dose: 650 mg Aspirin (Ecotrin) 325 mg PO QDAY [facility] Last Admin: 12/15/16 10:01 Dose: 325 mg Atorvastatin Calcium (Lipitor) 40 mg PO DAILY [facility] Last Admin: 12/15/16 10:01 Dose: 40 mg Bisacodyl (Dulcolax) [address] QDAY PRN PRN Reason: Constipation unrelieved by MOM Carvedilol (Coreg) 25 mg PO BID [facility] Last Admin: 12/15/16 10:01 Dose: 25 mg Enoxaparin Sodium (Lovenox) 40 mg SUB-Q QDAY@1000 [facility] Last Admin: 12/15/16 10:01 Dose: 40 mg Furosemide (Lasix) 40 mg PO DAILY [facility] Last Admin: 12/15/16 10:01 Dose: 40 mg Hydralazine HCl (Apresoline) 10 mg IV Q4H PRN PRN Reason: Hypertension Last Admin: 12/11/16 09:57 Dose: 10 mg Ibuprofen (Motrin) 600 mg PO Q8HR [facility] Last Admin: 12/15/16 05:54 Dose: 600 mg Lisinopril (Zestril) 40 mg PO QDAY [facility] Last Admin: 12/15/16 10:01 Dose: 40 mg Magnesium Hydroxide (Milk Of Magnesia) 30 ml PO Q4H PRN PRN Reason: Constipation Nifedipine (Procardia Xl) 90 mg PO QDAY [facility] Last Admin: 12/15/16 10:01 Dose: 90 mg Nitroglycerin (Nitrostat) 0.4 mg SL Q5M PRN PRN Reason: Chest Pain Ondansetron HCl (Zofran) 4 mg IV Q8H PRN PRN Reason: N/V unrelieved by Reglan Oxycodone/Acetaminophen (Percocet 5/325) 1 tab PO Q6H PRN PRN Reason: Pain, Moderate (4-6) Last Admin: 12/13/16 14:30 Dose: 1 tab Pantoprazole Sodium (Protonix) 40 mg PO QDAY [facility] Last Admin: 12/15/16 10:01 Dose: 40 mg Review of Systems All systems: negative ((except noted below):) Constitutional: no fever, no sweats Cardiovascular: shortness of breath, no chest pain, no edema Respiratory: cough Gastrointestinal: no abdominal pain, no vomiting, no diarrhea Genitourinary Male: no dysuria Musculoskeletal: limitation of motion, gait dysfunction, prior amputations, arthritis, no redness of joints, no hot joints Integumentary: no rash Neurological: no headaches Hematologic/Lymphatic: no lymphadenopathy Physical Examination - Constitutional Vitals: Vital Signs Temp Pulse Resp BP Pulse Ox 97.3 F L 65 20 163/76 100 12/15/16 08:00 12/15/16 10:01 12/15/16 10:00 12/15/16 10:01 12/15/16 10:00 Temperature -Last 24 Hours Temperature 97.3 F Temperature 97.9 F Temperature 97.5 F Temperature 97.8 F Temperature 97.9 F General appearance: Present: no acute distress - Respiratory Respiratory: bilateral: CTA, negative: rales, rhonchi - Cardiovascular Rhythm: regular - Extremities Extremities: No edema, abnormal (right AKA stump stable) Extremity abnormal: tenderness, other (tenderness around left ankle or knee joint with signs of an infectious process) - Abdominal General gastrointestinal: Present: soft, non-distended - Integumentary Integumentary: Absent: rash - Neurologic Neurologic: no focal deficits Results - Labs CBC & Chem 7: 12/14/16 05:06 12/14/16 05:06 Labs: Microbiology 12/10/16 Unknown Aspirate Surgical Culture - Final 12/10/16 Unknown Aspirate Anaerobic Culture - Preliminary 12/08/16 03:48 Synovial Fluid - Left Knee Body Fluid Culture - Final 12/08/16 04:02 Peripheral/Venous Blood Culture - Final NO GROWTH AFTER 5 DAYS 12/08/16 04:31 Peripheral/Venous Blood Culture - Final NO GROWTH AFTER 5 DAYS Assessment and Plan - Patient Problems (1) Left ankle pain Current Visit: Yes Status: Acute Qualifiers: Chronicity: unspecified Qualified Code(s): M25.572 - Pain in left ankle and joints of left foot Plan to address problem: 1. No clinical evidence of an infectious process requiring antibiotics at the present time. 2. Await MRI findings to confirm or rule out osteomyelitis. 3. Would obtain a bone biopsy with culture to help guide antibiotic choice IF osteomyelitis is confirmed. 4. Hold antibiotics for now.
--- NOTE | 2016-12-15 16:56 | Progress Note ---
Assessment and Plan Assessment and plan: 66-year-old man who presents with left ankle pain, x-rays suspicious for osteomyelitis of the ankle 1. L ankle pain/sepsis/left ankle osteomyelitis Patient's was initially empirically treated for gouty attack, he received prednisone, he also went on to have arthrocentesis which showed few white blood cells, and cultures were negative ID consult, hold antibiotics for now, continue pain management fup MRI of his left LLE 2. Hypertensive urgency Blood pressure currently improved on current medications 3. 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 Hyperlipidemia Statin resumed 5. PVD Status post R AKA 6. DVT prophylaxis Lovenox Plan discussed with patient and his daughter. Spent 10 minutes discussing the plan with his daughter Devyn. History Interval history: He continues to complain of left ankle pain, decreased range of motion he states that the pain is worse when he tries to bear weight on the ankle. Pain ranges anywhere between 6-8 out of 10. It is exacerbated by bearing weight on it, the pain is a dull pain deep inside his ankle, I does not radiate anywhere. He denies fevers, denies chills Hospitalist Physical - Physical exam Narrative exam: General: Patient appears well in no distress HEENT: MMM, EOMI cardiac: S1-S2 heard lungs: clear to auscultation, abdomen: soft, nontender, nondistended bowel sounds positive extremities: Status post right AKA, no edema clubbing or cyanosis, left achilles tendon is tender to touch, left ankle range of motion is severely decreased due to pain, and there is no palpable effusion, no warmth, no erythema , no swelling Skin: no rash or lesion Neuro: no focal deficit Psych: appropriate behavior and mood, cognition intact - Constitutional Vitals: Temp Pulse Resp BP Pulse Ox 98.1 F 77 20 132/71 97 12/15/16 12:30 12/15/16 12:30 12/15/16 12:30 12/15/16 12:30 12/15/16 12:30 General appearance: Present: no acute distress Results - Labs CBC & Chem 7: 12/14/16 05:06 12/14/16 05:06 Labs: Laboratory Last Values WBC 23.4 K/mm3 (4.5-11.0) H 12/14/16 05:06 RBC 4.61 M/mm3 (3.65-5.03) 12/14/16 05:06 Hgb 13.1 gm/dl (11.8-15.2) 12/14/16 05:06 Hct 40.2 % (35.5-45.6) 12/14/16 05:06 MCV 87 fl (84-94) 12/14/16 05:06 MCH 28 pg (28-32) 12/14/16 05:06 MCHC 33 % (32-34) 12/14/16 05:06 RDW 14.0 % (13.2-15.2) 12/14/16 05:06 Plt Count 218 K/mm3 (140-440) 12/14/16 05:06 Lymph % (Auto) 12.4 % (13.4-35.0) L 12/11/16 05:47 [place] % (Auto) 6.6 % (0.0-7.3) 12/11/16 05:47 Eos % (Auto) 0.2 % (0.0-4.3) 12/11/16 05:47 Baso % (Auto) 0.1 % (0.0-1.8) 12/11/16 05:47 Lymph # 1.9 K/mm3 (1.2-5.4) 12/11/16 05:47 [place] # 1.0 K/mm3 (0.0-0.8) H 12/11/16 05:47 Eos # 0.0 K/mm3 (0.0-0.4) 12/11/16 05:47 Baso # 0.0 K/mm3 (0.0-0.1) 12/11/16 05:47 Add Manual Diff Complete 12/14/16 05:06 Total Counted 100 12/14/16 05:06 Seg Neutrophils % 80.7 % (40.0-70.0) H 12/11/16 05:47 Seg Neuts % (Manual) 65.0 % (40.0-70.0) 12/14/16 05:06 Band Neutrophils % 13.0 % 12/14/16 05:06 Lymphocytes % (Manual) 14.0 % (13.4-35.0) 12/14/16 05:06 Reactive Lymphs % (Man) 0 % 12/14/16 05:06 Monocytes % (Manual) 4.0 % (0.0-7.3) 12/14/16 05:06 Eosinophils % (Manual) 0 % (0.0-4.3) 12/14/16 05:06 Basophils % (Manual) 0 % (0.0-1.8) 12/14/16 05:06 Metamyelocytes % 4.0 % 12/14/16 05:06 Myelocytes % 0 % 12/14/16 05:06 Promyelocytes % 0 % 12/14/16 05:06 Blast Cells % 0 % 12/14/16 05:06 Nucleated RBC % Not Reportable 12/14/16 05:06 Seg Neutrophils # 12.6 K/mm3 (1.8-7.7) H 12/11/16 05:47 Seg Neutrophils # Man 15.2 K/mm3 (1.8-7.7) H 12/14/16 05:06 Band Neutrophils # 3.0 K/mm3 12/14/16 05:06 Lymphocytes # (Manual) 3.3 K/mm3 (1.2-5.4) 12/14/16 05:06 Abs React Lymphs (Man) 0.0 K/mm3 12/14/16 05:06 Monocytes # (Manual) 0.9 K/mm3 (0.0-0.8) H 12/14/16 05:06 Eosinophils # (Manual) 0.0 K/mm3 (0.0-0.4) 12/14/16 05:06 Basophils # (Manual) 0.0 K/mm3 (0.0-0.1) 12/14/16 05:06 Metamyelocytes # 0.9 K/mm3 12/14/16 05:06 Myelocytes # 0.0 K/mm3 12/14/16 05:06 Promyelocytes # 0.0 K/mm3 12/14/16 05:06 Blast Cells # 0.0 K/mm3 12/14/16 05:06 WBC Morphology Not Reportable 12/14/16 05:06 Hypersegmented Neuts Not Reportable 12/14/16 05:06 Hyposegmented Neuts Not Reportable 12/14/16 05:06 Hypogranular Neuts Not Reportable 12/14/16 05:06 Smudge Cells Not Reportable 12/14/16 05:06 Toxic Granulation Not Reportable 12/14/16 05:06 Toxic Vacuolation Not Reportable 12/14/16 05:06 Dohle Bodies Not Reportable 12/14/16 05:06 Pelger-Huet Anomaly Not Reportable 12/14/16 05:06 Tonie Rods Not Reportable 12/14/16 05:06 Platelet Estimate Consistent w auto 12/14/16 05:06 Clumped Platelets Not Reportable 12/14/16 05:06 Plt Clumps, EDTA Not Reportable 12/14/16 05:06 Large Platelets Not Reportable 12/14/16 05:06 Giant Platelets Not Reportable 12/14/16 05:06 Platelet Satelliting Not Reportable 12/14/16 05:06 Plt Morphology Comment Not Reportable 12/14/16 05:06 RBC Morphology Normal 12/14/16 05:06 Dimorphic RBCs Not Reportable 12/14/16 05:06 Polychromasia Not Reportable 12/14/16 05:06 Hypochromasia Not Reportable 12/14/16 05:06 Poikilocytosis Not Reportable 12/14/16 05:06 Anisocytosis Not Reportable 12/14/16 05:06 Microcytosis Not Reportable 12/14/16 05:06 Macrocytosis Not Reportable 12/14/16 05:06 Spherocytes Not Reportable 12/14/16 05:06 Pappenheimer Bodies Not Reportable 12/14/16 05:06 Sickle Cells Not Reportable 12/14/16 05:06 Target Cells Not Reportable 12/14/16 05:06 Tear Drop Cells Not Reportable 12/14/16 05:06 Ovalocytes Not Reportable 12/14/16 05:06 Helmet Cells Not Reportable 12/14/16 05:06 Baron-[place] Bodies Not Reportable 12/14/16 05:06 [place] Rings Not Reportable 12/14/16 05:06 [place] Cells Not Reportable 12/14/16 05:06 Bite Cells Not Reportable 12/14/16 05:06 Crenated Cell Not Reportable 12/14/16 05:06 Elliptocytes Not Reportable 12/14/16 05:06 Acanthocytes (Spur) Not Reportable 12/14/16 05:06 Rouleaux Not Reportable 12/14/16 05:06 Hemoglobin C Crystals Not Reportable 12/14/16 05:06 Schistocytes Not Reportable 12/14/16 05:06 Malaria parasites Not Reportable 12/14/16 05:06 ESR 47 mm/Hr (0-20) 12/07/16 21:31 Bam Bodies Not Reportable 12/14/16 05:06 Hem Pathologist Commnt No 12/14/16 05:06 PT 14.0 Sec. (12.2-14.9) 12/08/16 02:08 INR 1.09 (0.87-1.13) 12/08/16 02:08 Sodium 137 mmol/L (137-145) 12/14/16 05:06 Potassium 5.9 mmol/L (3.6-5.0) H D 12/14/16 05:06 Chloride 100.3 mmol/L (98-107) 12/14/16 05:06 Carbon Dioxide 25 mmol/L (22-30) 12/14/16 05:06 Anion Gap 18 mmol/L 12/14/16 05:06 BUN 40 mg/dL (9-20) H 12/14/16 05:06 Creatinine 1.1 mg/dL (0.8-1.5) 12/14/16 05:06 Estimated GFR > 60 ml/min 12/14/16 05:06 BUN/Creatinine Ratio 36.36 % 12/14/16 05:06 Glucose 111 mg/dL (75-100) H 12/14/16 05:06 Lactic Acid 2.10 mmol/L (0.7-2.0) H* 12/08/16 02:08 Uric Acid 12.0 mg/dL (3.5-7.6) H 12/07/16 21:31 Calcium 8.9 mg/dL (8.4-10.2) 12/14/16 05:06 Total Creatine Kinase 99 units/L (55-170) 12/13/16 07:13 Troponin T < 0.010 ng/mL (0.00-0.029) 12/13/16 14:04 C-Reactive Protein 2.80 mg/dL (0.00-1.30) H 12/07/16 21:31 Urine Color Yellow (Yellow) 12/08/16 01:26 Urine Turbidity Clear (Clear) 12/08/16 01:26 Urine pH 5.0 (5.0-7.0) 12/08/16 01:26 Ur Specific [place] 1.020 (1.003-1.030) 12/08/16 01:26 Urine Protein <15 mg/dl mg/dL (Negative) 12/08/16 01:26 Urine Glucose (UA) Neg mg/dL (Negative) 12/08/16 01:26 Urine Ketones Neg mg/dL (Negative) 12/08/16 01:26 Urine Blood Neg (Negative) 12/08/16 01:26 Urine Nitrite Neg (Negative) 12/08/16 01:26 Urine Bilirubin Neg (Negative) 12/08/16 01:26 Urine Urobilinogen < 2.0 mg/dL (<2.0) 12/08/16 01:26 Ur Leukocyte Esterase Neg (Negative) 12/08/16 01:26 Urine WBC (Auto) 1.0 /HPF (0.0-6.0) 12/08/16 01:26 Urine RBC (Auto) 4.0 /HPF (0.0-6.0) 12/08/16 01:26 U Epithel Cells (Auto) < 1.0 /HPF (0-13.0) 12/08/16 01:26 Hyaline Casts 5 /LPF 12/08/16 01:26 Urine Mucus Few /HPF 12/08/16 01:26 Fluid Type Synovial 12/08/16 03:48 Fluid Color Red 12/08/16 03:48 Fluid Appearance Turbid 12/08/16 03:48 Fluid pH TNR 12/08/16 03:48 Fluid WBC TNR 12/08/16 03:48 Fluid RBC TNR 12/08/16 03:48 Fluid Seg Neutrophils TNR 12/08/16 03:48 Fluid Lymphocytes TNR 12/08/16 03:48 Fluid Reactive Lymphs TNR 12/08/16 03:48 Fluid Monocytes TNR 12/08/16 03:48 Fluid Eosinophils TNR 12/08/16 03:48 Fluid Basophils TNR 12/08/16 03:48 Fluid Total Protein 6.3 (15.0-45.0) L 12/08/16 03:48 Fluid LDH > 1200 12/08/16 03:48 Fluid Comment See add'l comments 12/08/16 03:48 Synovial Crystals Msu crystals (NONE SEEN) 12/08/16 03:48
[2016-12-16] MEDS: MOTRIN PO SCH ×4 (05:46→21:23)
--- NOTE | 2016-12-16 08:36 | Progress Note ---
Assessment and Plan - Patient Problems (1) Left ankle pain Current Visit: Yes Status: Acute Qualifiers: Chronicity: unspecified Qualified Code(s): M25.572 - Pain in left ankle and joints of left foot Plan to address problem: 1. Left ankle shows no clinical signs of infection or signficant inflammation. 2. Continue holding antibiotics pending results of MRI. 3. If osteomyelitis is evident, will need tissue/ biopsy to guide antimicrobial therapy. Subjective Date of service: 12/16/16 Interval history: Continued left ankle pain, though patient says it is improved. MRI planned for today. Objective - Constitutional Vitals: Vital Signs Temp Pulse Resp BP Pulse Ox 98.1 F 67 20 136/68 98 12/16/16 05:39 12/16/16 05:39 12/16/16 05:39 12/16/16 05:39 12/16/16 05:39 Temperature -Last 24 Hours Temperature 98.1 F Temperature 97.7 F Temperature 97.7 F Temperature 98.1 F Temperature 98.1 F General appearance: Present: no acute distress - Respiratory Respiratory effort: normal Respiratory: bilateral: CTA - Cardiovascular Rhythm: regular Extremities: No edema, normal temperature, normal color - Gastrointestinal General gastrointestinal: Present: soft, non-distended - Integumentary Integumentary: no rash - Psychiatric Psychiatric: appropriate mood/affect - Labs CBC & Chem 7: 12/16/16 10:37 12/16/16 10:37 Labs: Microbiology 12/10/16 Unknown Aspirate Anaerobic Culture - Final 12/10/16 Unknown Aspirate Surgical Culture - Final 12/08/16 03:48 Synovial Fluid - Left Knee Body Fluid Culture - Final 12/08/16 04:02 Peripheral/Venous Blood Culture - Final NO GROWTH AFTER 5 DAYS 12/08/16 04:31 Peripheral/Venous Blood Culture - Final NO GROWTH AFTER 5 DAYS Active Medications Acetaminophen (Tylenol) 650 mg PO Q4H PRN PRN Reason: Pain MILD(1-3)/Fever >100.5/HENRY Last Admin: 12/08/16 09:16 Dose: 650 mg Aspirin (Ecotrin) 325 mg PO QDAY [facility] Last Admin: 12/15/16 10:01 Dose: 325 mg Atorvastatin Calcium (Lipitor) 40 mg PO DAILY [facility] Last Admin: 12/15/16 10:01 Dose: 40 mg Bisacodyl (Dulcolax) 10 mg TX QDAY PRN PRN Reason: Constipation unrelieved by MOM Carvedilol (Coreg) 25 mg PO BID [facility] Last Admin: 12/15/16 21:23 Dose: 25 mg Enoxaparin Sodium (Lovenox) 40 mg SUB-Q QDAY@1000 [facility] Last Admin: 12/15/16 10:01 Dose: 40 mg Furosemide (Lasix) 40 mg PO DAILY [facility] Last Admin: 12/15/16 10:01 Dose: 40 mg Hydralazine HCl (Apresoline) 10 mg IV Q4H PRN PRN Reason: Hypertension Last Admin: 12/11/16 09:57 Dose: 10 mg Ibuprofen (Motrin) 600 mg PO Q8HR [facility] Last Admin: 12/16/16 05:46 Dose: 600 mg Lisinopril (Zestril) 40 mg PO QDAY [facility] Last Admin: 12/15/16 10:01 Dose: 40 mg Magnesium Hydroxide (Milk Of Magnesia) 30 ml PO Q4H PRN PRN Reason: Constipation Nifedipine (Procardia Xl) 90 mg PO QDAY [facility] Last Admin: 12/15/16 10:01 Dose: 90 mg Nitroglycerin (Nitrostat) 0.4 mg SL Q5M PRN PRN Reason: Chest Pain Ondansetron HCl (Zofran) 4 mg IV Q8H PRN PRN Reason: N/V unrelieved by Reglan Oxycodone/Acetaminophen (Percocet 5/325) 1 tab PO Q6H PRN PRN Reason: Pain, Moderate (4-6) Last Admin: 12/13/16 14:30 Dose: 1 tab Pantoprazole Sodium (Protonix) 40 mg PO QDAY [facility] Last Admin: 12/15/16 10:01 Dose: 40 mg
[2016-12-16] MEDS: LOVENOX SUB-Q SCH (09:59)
[2016-12-16] MEDS: PROCARDIA XL PO SCH (10:00)
[2016-12-16] MEDS: LASIX PO SCH (10:00)
[2016-12-16] MEDS: ZESTRIL PO SCH (10:01)
[2016-12-16] MEDS: COREG PO SCH ×2 (10:02→21:23)
[2016-12-16] MEDS: PROTONIX PO SCH (10:02)
[2016-12-16] MEDS: ECOTRIN PO SCH (10:03)
[2016-12-16 10:51] LABS: Hematocrit 38.6 % (35.5-45.6); Hemoglobin 12.4 gm/dl (11.8-15.2); Mean Corpuscular HGB Conc 32 % (32-34); Mean Corpuscular Hemoglobin 28 pg (28-32); Mean Corpuscular Volume 88 fl (84-94); Platelet Count 256 K/mm3 (140-440); Red Blood Count 4.38 M/mm3 (3.65-5.03); Red Cell Distribution Width 14.2 % (13.2-15.2); White Blood Count 12.1 K/mm3 (4.5-11.0)
[2016-12-16 11:15] LABS: Anion Gap 18 mmol/L; BUN/Creatinine Ratio 31.53; Blood Urea Nitrogen 41 mg/dL (9-20); Calcium 8.7 mg/dL (8.4-10.2); Carbon Dioxide 25 mmol/L (22-30); Chloride 102.4 mmol/L (98-107); Glucose 114 mg/dL (75-100); Potassium 4.1 mmol/L (3.6-5.0); Sodium 141 mmol/L (137-145)
--- NOTE | 2016-12-16 11:49 | Progress Note ---
Assessment and Plan Left Ankle pain/arthritis Leukocytosis Diffuse severe 3 vessel coronary disease on [facility] 09/2015 pt was referred to [place], 10/2015, where surgery was declined due to his multiple co-morbidities. Persantine thallium this admission reports multiple fixed defects, no reversible ischemia. Patient has non-revascularizable 3 vessel coronary disease. Carotid disease PAD s/p Rt AKA Ischemic cardiomyopathy Hypertension Recommendations: Medical therapy for non-revascularizable 3 vessel coronary disease and ischemic cardiomyopathy. Subjective Date of service: 12/16/16 Interval history: Patient denies chest pain and shortness of breath. Awaits MRI of left ankle. Objective Vital Signs Temp Pulse Pulse Pulse Resp BP BP 12/16/16 10:02 66 124/60 12/16/16 10:01 66 124/60 12/16/16 10:00 66 20 12/16/16 08:55 97.7 F 60 20 124/60 12/16/16 05:39 98.1 F 67 20 136/68 12/16/16 00:58 97.7 F 66 20 132/60 12/15/16 22:00 66 12/15/16 20:54 97.7 F 71 20 135/60 12/15/16 16:45 98.1 F 80 20 138/82 12/15/16 12:30 98.1 F 77 20 132/71 Pulse Ox 12/16/16 10:02 12/16/16 10:01 12/16/16 10:00 97 12/16/16 08:55 97 12/16/16 05:39 98 12/16/16 00:58 98 12/15/16 22:00 12/15/16 20:54 98 12/15/16 16:45 98 12/15/16 12:30 97 - Physical Examination General: No Apparent Distress HEENT: Positive: PERRL Neck: Positive: trachea midline Cardiac: Positive: Reg Rate and Rhythm Extremities: Present: Other (Right AKA) - Labs and Meds CBC 12/16/16 Range/Units 10:37 WBC 12.1 H (4.5-11.0) K/mm3 RBC 4.38 (3.65-5.03) M/mm3 Hgb 12.4 (11.8-15.2) gm/dl Hct 38.6 (35.5-45.6) % Plt Count 256 (140-440) K/mm3 Comprehensive Metabolic Panel 12/16/16 Range/Units 10:37 Sodium 141 (137-145) mmol/L Potassium 4.1 D (3.6-5.0) mmol/L Chloride 102.4 (98-107) mmol/L Carbon Dioxide 25 (22-30) mmol/L BUN 41 H (9-20) mg/dL Creatinine 1.3 (0.8-1.5) mg/dL Glucose 114 H (75-100) mg/dL Calcium 8.7 (8.4-10.2) mg/dL
--- NOTE | 2016-12-16 17:22 | Progress Note ---
Assessment and Plan Assessment and plan: 66-year-old man who presents with left ankle pain, x-rays suspicious for osteomyelitis of the ankle 1. L ankle pain/sepsis/left ankle osteomyelitis Patient's was initially empirically treated for gouty attack, he also went on to have arthrocentesis which showed few white blood cells; he received prednisone; but did not improved, , and cultures were negative ID consult, hold antibiotics for now, continue pain management fup MRI of his left LLE 2. Hypertensive urgency Blood pressure currently improved on current medications 3. Chronic systolic heart failure Cardiology consulted for preop clearance; records reviewed and per cardiac cath 09/2015 he has multivessel disease with EF 25-30% and he was supposed to have cardiac bypass; planning additional cardiac workup, stress test this morning, awainting result Restarted on BB, ACEI and diuretic; continue medical management 4. Hyperlipidemia Statin resumed 5. PVD Status post R AKA 6. DVT prophylaxis Lovenox Plan discussed with patient and his daughter. Spent 10 minutes discussing the plan with his daughter Devyn. History Interval history: He continues to complain of left ankle pain, decreased range of motion he states that the pain is worse when he tries to bear weight on the ankle. Pain ranges anywhere between 6-8 out of 10. It is exacerbated by bearing weight on it, the pain is a dull pain deep inside his ankle, I does not radiate anywhere. He denies fevers, denies chills Hospitalist Physical - Physical exam Narrative exam: General: Patient appears well in no distress HEENT: MMM, EOMI cardiac: S1-S2 heard lungs: clear to auscultation, abdomen: soft, nontender, nondistended bowel sounds positive extremities: Status post right AKA, no edema clubbing or cyanosis, left achilles tendon is tender to touch, left ankle range of motion is severely decreased due to pain, and there is no palpable effusion, no warmth, no erythema , no swelling Skin: no rash or lesion Neuro: no focal deficit Psych: appropriate behavior and mood, cognition intact - Constitutional Vitals: Temp Pulse Resp BP Pulse Ox 97.9 F 68 18 116/56 97 12/16/16 12:20 12/16/16 12:20 12/16/16 12:20 12/16/16 12:20 12/16/16 12:20 General appearance: Present: no acute distress Results - Labs CBC & Chem 7: 12/16/16 10:37 12/16/16 10:37 Labs: Laboratory Last Values WBC 12.1 K/mm3 (4.5-11.0) H 12/16/16 10:37 RBC 4.38 M/mm3 (3.65-5.03) 12/16/16 10:37 Hgb 12.4 gm/dl (11.8-15.2) 12/16/16 10:37 Hct 38.6 % (35.5-45.6) 12/16/16 10:37 MCV 88 fl (84-94) 12/16/16 10:37 MCH 28 pg (28-32) 12/16/16 10:37 MCHC 32 % (32-34) 12/16/16 10:37 RDW 14.2 % (13.2-15.2) 12/16/16 10:37 Plt Count 256 K/mm3 (140-440) 12/16/16 10:37 Lymph % (Auto) 12.4 % (13.4-35.0) L 12/11/16 05:47 [place] % (Auto) 6.6 % (0.0-7.3) 12/11/16 05:47 Eos % (Auto) 0.2 % (0.0-4.3) 12/11/16 05:47 Baso % (Auto) 0.1 % (0.0-1.8) 12/11/16 05:47 Lymph # 1.9 K/mm3 (1.2-5.4) 12/11/16 05:47 [place] # 1.0 K/mm3 (0.0-0.8) H 12/11/16 05:47 Eos # 0.0 K/mm3 (0.0-0.4) 12/11/16 05:47 Baso # 0.0 K/mm3 (0.0-0.1) 12/11/16 05:47 Add Manual Diff Complete 12/14/16 05:06 Total Counted 100 12/14/16 05:06 Seg Neutrophils % 80.7 % (40.0-70.0) H 12/11/16 05:47 Seg Neuts % (Manual) 65.0 % (40.0-70.0) 12/14/16 05:06 Band Neutrophils % 13.0 % 12/14/16 05:06 Lymphocytes % (Manual) 14.0 % (13.4-35.0) 12/14/16 05:06 Reactive Lymphs % (Man) 0 % 12/14/16 05:06 Monocytes % (Manual) 4.0 % (0.0-7.3) 12/14/16 05:06 Eosinophils % (Manual) 0 % (0.0-4.3) 12/14/16 05:06 Basophils % (Manual) 0 % (0.0-1.8) 12/14/16 05:06 Metamyelocytes % 4.0 % 12/14/16 05:06 Myelocytes % 0 % 12/14/16 05:06 Promyelocytes % 0 % 12/14/16 05:06 Blast Cells % 0 % 12/14/16 05:06 Nucleated RBC % Not Reportable 12/14/16 05:06 Seg Neutrophils # 12.6 K/mm3 (1.8-7.7) H 12/11/16 05:47 Seg Neutrophils # Man 15.2 K/mm3 (1.8-7.7) H 12/14/16 05:06 Band Neutrophils # 3.0 K/mm3 12/14/16 05:06 Lymphocytes # (Manual) 3.3 K/mm3 (1.2-5.4) 12/14/16 05:06 Abs React Lymphs (Man) 0.0 K/mm3 12/14/16 05:06 Monocytes # (Manual) 0.9 K/mm3 (0.0-0.8) H 12/14/16 05:06 Eosinophils # (Manual) 0.0 K/mm3 (0.0-0.4) 12/14/16 05:06 Basophils # (Manual) 0.0 K/mm3 (0.0-0.1) 12/14/16 05:06 Metamyelocytes # 0.9 K/mm3 12/14/16 05:06 Myelocytes # 0.0 K/mm3 12/14/16 05:06 Promyelocytes # 0.0 K/mm3 12/14/16 05:06 Blast Cells # 0.0 K/mm3 12/14/16 05:06 WBC Morphology Not Reportable 12/14/16 05:06 Hypersegmented Neuts Not Reportable 12/14/16 05:06 Hyposegmented Neuts Not Reportable 12/14/16 05:06 Hypogranular Neuts Not Reportable 12/14/16 05:06 Smudge Cells Not Reportable 12/14/16 05:06 Toxic Granulation Not Reportable 12/14/16 05:06 Toxic Vacuolation Not Reportable 12/14/16 05:06 Dohle Bodies Not Reportable 12/14/16 05:06 Pelger-Huet Anomaly Not Reportable 12/14/16 05:06 Tonie Rods Not Reportable 12/14/16 05:06 Platelet Estimate Consistent w auto 12/14/16 05:06 Clumped Platelets Not Reportable 12/14/16 05:06 Plt Clumps, EDTA Not Reportable 12/14/16 05:06 Large Platelets Not Reportable 12/14/16 05:06 Giant Platelets Not Reportable 12/14/16 05:06 Platelet Satelliting Not Reportable 12/14/16 05:06 Plt Morphology Comment Not Reportable 12/14/16 05:06 RBC Morphology Normal 12/14/16 05:06 Dimorphic RBCs Not Reportable 12/14/16 05:06 Polychromasia Not Reportable 12/14/16 05:06 Hypochromasia Not Reportable 12/14/16 05:06 Poikilocytosis Not Reportable 12/14/16 05:06 Anisocytosis Not Reportable 12/14/16 05:06 Microcytosis Not Reportable 12/14/16 05:06 Macrocytosis Not Reportable 12/14/16 05:06 Spherocytes Not Reportable 12/14/16 05:06 Pappenheimer Bodies Not Reportable 12/14/16 05:06 Sickle Cells Not Reportable 12/14/16 05:06 Target Cells Not Reportable 12/14/16 05:06 Tear Drop Cells Not Reportable 12/14/16 05:06 Ovalocytes Not Reportable 12/14/16 05:06 Helmet Cells Not Reportable 12/14/16 05:06 [place] Bodies Not Reportable 12/14/16 05:06 [place] Rings Not Reportable 12/14/16 05:06 [place] Cells Not Reportable 12/14/16 05:06 Bite Cells Not Reportable 12/14/16 05:06 Crenated Cell Not Reportable 12/14/16 05:06 Elliptocytes Not Reportable 12/14/16 05:06 Acanthocytes (Spur) Not Reportable 12/14/16 05:06 Rouleaux Not Reportable 12/14/16 05:06 Hemoglobin C Crystals Not Reportable 12/14/16 05:06 Schistocytes Not Reportable 12/14/16 05:06 Malaria parasites Not Reportable 12/14/16 05:06 ESR 47 mm/Hr (0-20) 12/07/16 21:31 Bam Bodies Not Reportable 12/14/16 05:06 Hem Pathologist Commnt No 12/14/16 05:06 PT 14.0 Sec. (12.2-14.9) 12/08/16 02:08 INR 1.09 (0.87-1.13) 12/08/16 02:08 Sodium 141 mmol/L (137-145) 12/16/16 10:37 Potassium 4.1 mmol/L (3.6-5.0) D 12/16/16 10:37 Chloride 102.4 mmol/L (98-107) 12/16/16 10:37 Carbon Dioxide 25 mmol/L (22-30) 12/16/16 10:37 Anion Gap 18 mmol/L 12/16/16 10:37 BUN 41 mg/dL (9-20) H 12/16/16 10:37 Creatinine 1.3 mg/dL (0.8-1.5) 12/16/16 10:37 Estimated GFR > 60 ml/min 12/16/16 10:37 BUN/Creatinine Ratio 31.53 % 12/16/16 10:37 Glucose 114 mg/dL (75-100) H 12/16/16 10:37 Lactic Acid 2.10 mmol/L (0.7-2.0) H* 12/08/16 02:08 Uric Acid 12.0 mg/dL (3.5-7.6) H 12/07/16 21:31 Calcium 8.7 mg/dL (8.4-10.2) 12/16/16 10:37 Total Creatine Kinase 99 units/L (55-170) 12/13/16 07:13 Troponin T < 0.010 ng/mL (0.00-0.029) 12/13/16 14:04 C-Reactive Protein 2.80 mg/dL (0.00-1.30) H 12/07/16 21:31 Urine Color Yellow (Yellow) 12/08/16 01:26 Urine Turbidity Clear (Clear) 12/08/16 01:26 Urine pH 5.0 (5.0-7.0) 12/08/16 01:26 Ur Specific [place] 1.020 (1.003-1.030) 12/08/16 01:26 Urine Protein <15 mg/dl mg/dL (Negative) 12/08/16 01:26 Urine Glucose (UA) Neg mg/dL (Negative) 12/08/16 01:26 Urine Ketones Neg mg/dL (Negative) 12/08/16 01:26 Urine Blood Neg (Negative) 12/08/16 01:26 Urine Nitrite Neg (Negative) 12/08/16 01:26 Urine Bilirubin Neg (Negative) 12/08/16 01:26 Urine Urobilinogen < 2.0 mg/dL (<2.0) 12/08/16 01:26 Ur Leukocyte Esterase Neg (Negative) 12/08/16 01:26 Urine WBC (Auto) 1.0 /HPF (0.0-6.0) 12/08/16 01:26 Urine RBC (Auto) 4.0 /HPF (0.0-6.0) 12/08/16 01:26 U Epithel Cells (Auto) < 1.0 /HPF (0-13.0) 12/08/16 01:26 Hyaline Casts 5 /LPF 12/08/16 01:26 Urine Mucus Few /HPF 12/08/16 01:26 Fluid Type Synovial 12/08/16 03:48 Fluid Color Red 12/08/16 03:48 Fluid Appearance Turbid 12/08/16 03:48 Fluid pH TNR 12/08/16 03:48 Fluid WBC TNR 12/08/16 03:48 Fluid RBC TNR 12/08/16 03:48 Fluid Seg Neutrophils TNR 12/08/16 03:48 Fluid Lymphocytes TNR 12/08/16 03:48 Fluid Reactive Lymphs TNR 12/08/16 03:48 Fluid Monocytes TNR 12/08/16 03:48 Fluid Eosinophils TNR 12/08/16 03:48 Fluid Basophils TNR 12/08/16 03:48 Fluid Total Protein 6.3 (15.0-45.0) L 12/08/16 03:48 Fluid LDH > 1200 12/08/16 03:48 Fluid Comment See add'l comments 12/08/16 03:48 Synovial Crystals Msu crystals (NONE SEEN) 12/08/16 03:48
[2016-12-17] MEDS: MOTRIN PO SCH ×3 (06:01→22:50)
--- NOTE | 2016-12-17 08:32 | Progress Note ---
Assessment and Plan - Patient Problems (1) Left ankle pain Current Visit: Yes Status: Acute Qualifiers: Chronicity: unspecified Qualified Code(s): M25.572 - Pain in left ankle and joints of left foot Plan to address problem: 1. Clinically there are no infectious concerns. 2. MRI left leg showed an ankle joint effusion, but no evidence of ostemyelitis. Likely sequelae of gout. 3. Further recommendations per orthopedist. 4. Please call again if there are further concerns for infection. I will sign off. Subjective Date of service: 12/17/16 Principal diagnosis: Left Ankle Pain, r/o Osteomyelitis Interval history: Patient completed MRI left leg yesterday. Objective - Constitutional Vitals: Vital Signs Temp Pulse Resp BP Pulse Ox 97.7 F 74 18 135/63 100 12/17/16 08:00 12/17/16 08:00 12/17/16 08:00 12/17/16 08:00 12/17/16 08:00 Temperature -Last 24 Hours Temperature 97.7 F Temperature 98.1 F Temperature 97.5 F Temperature 97.6 F Temperature 97.8 F Temperature 97.9 F Temperature 97.7 F General appearance: Present: no acute distress - Respiratory Respiratory effort: normal Respiratory: bilateral: CTA - Cardiovascular Rhythm: regular Heart Sounds: Present: S1 & S2 Extremities: No edema Extremity abnormal: other (left ankle has no residual swelling, increased warmth or fluctuance; decreased tenderness) - Gastrointestinal General gastrointestinal: Present: soft, non-distended - Integumentary Integumentary: no rash - Labs CBC & Chem 7: 12/16/16 10:37 12/16/16 10:37 Labs: Abnormal lab results 12/16/16 12/16/16 Range/Units 10:37 10:37 WBC 12.1 H (4.5-11.0) K/mm3 BUN 41 H (9-20) mg/dL Glucose 114 H (75-100) mg/dL Microbiology 12/10/16 Unknown Aspirate Anaerobic Culture - Final 12/10/16 Unknown Aspirate Surgical Culture - Final 12/08/16 03:48 Synovial Fluid - Left Knee Body Fluid Culture - Final 12/08/16 04:02 Peripheral/Venous Blood Culture - Final NO GROWTH AFTER 5 DAYS 12/08/16 04:31 Peripheral/Venous Blood Culture - Final NO GROWTH AFTER 5 DAYS Active Medications Acetaminophen (Tylenol) 650 mg PO Q4H PRN PRN Reason: Pain MILD(1-3)/Fever >100.5/HENRY Last Admin: 12/08/16 09:16 Dose: 650 mg Aspirin (Ecotrin) 325 mg PO QDAY [facility] Last Admin: 12/16/16 10:03 Dose: 325 mg Atorvastatin Calcium (Lipitor) 40 mg PO DAILY [facility] Last Admin: 12/16/16 10:05 Dose: 40 mg Bisacodyl (Dulcolax) 10 mg AL QDAY PRN PRN Reason: Constipation unrelieved by MOM Carvedilol (Coreg) 25 mg PO BID [facility] Last Admin: 12/16/16 21:23 Dose: 25 mg Enoxaparin Sodium (Lovenox) 40 mg SUB-Q QDAY@1000 [facility] Last Admin: 12/16/16 09:59 Dose: 40 mg Furosemide (Lasix) 40 mg PO DAILY [facility] Last Admin: 12/16/16 10:00 Dose: 40 mg Hydralazine HCl (Apresoline) 10 mg IV Q4H PRN PRN Reason: Hypertension Last Admin: 12/11/16 09:57 Dose: 10 mg Ibuprofen (Motrin) 600 mg PO Q8HR [facility] Last Admin: 12/17/16 06:01 Dose: 600 mg Lisinopril (Zestril) 40 mg PO QDAY [facility] Last Admin: 12/16/16 10:01 Dose: 40 mg Magnesium Hydroxide (Milk Of Magnesia) 30 ml PO Q4H PRN PRN Reason: Constipation Nifedipine (Procardia Xl) 90 mg PO QDAY [facility] Last Admin: 12/16/16 10:00 Dose: 90 mg Nitroglycerin (Nitrostat) 0.4 mg SL Q5M PRN PRN Reason: Chest Pain Ondansetron HCl (Zofran) 4 mg IV Q8H PRN PRN Reason: N/V unrelieved by Reglan Oxycodone/Acetaminophen (Percocet 5/325) 1 tab PO Q6H PRN PRN Reason: Pain, Moderate (4-6) Last Admin: 12/13/16 14:30 Dose: 1 tab Pantoprazole Sodium (Protonix) 40 mg PO QDAY [facility] Last Admin: 12/16/16 10:02 Dose: 40 mg - Imaging and cardiology Other: report reviewed (MRI Left Leg - ankle joint effusion; possible tenosynovitis; no osteomyelitis)
[2016-12-17] MEDS: ZESTRIL PO SCH (09:25)
[2016-12-17] MEDS: PROCARDIA XL PO SCH (09:25)
[2016-12-17] MEDS: LASIX PO SCH (09:25)
[2016-12-17] MEDS: ECOTRIN PO SCH (09:25)
[2016-12-17] MEDS: COREG PO SCH ×2 (09:25→22:45)
[2016-12-17] MEDS: LOVENOX SUB-Q SCH (09:25)
[2016-12-17] MEDS: PROTONIX PO SCH (09:25)
--- NOTE | 2016-12-17 11:06 | Progress Note ---
Assessment and Plan Left Ankle pain/arthritis Leukocytosis Diffuse severe 3 vessel coronary disease on [facility] 09/2015 pt was referred to [facility], 10/2015, where surgery was declined due to his multiple co-morbidities. Persantine thallium this admission reports multiple fixed defects, no reversible ischemia. Patient has non-revascularizable 3 vessel coronary disease. Carotid disease PAD s/p Rt AKA Ischemic cardiomyopathy Hypertension Recommendations: Medical therapy for non-revascularizable 3 vessel coronary disease and ischemic cardiomyopathy. Subjective Date of service: 12/17/16 Principal diagnosis: Left Ankle Pain, r/o Osteomyelitis Interval history: Patient denies chest pain and shortness of breath. Awaits MRI results of left ankle. Objective Vital Signs Temp Pulse Pulse Pulse Resp Resp BP 12/17/16 09:25 74 135/63 12/17/16 08:00 97.7 F 74 18 12/17/16 06:01 20 12/17/16 05:39 98.1 F 63 20 12/17/16 00:59 97.5 F L 66 20 12/16/16 22:23 22 12/16/16 21:23 60 22 114/53 12/16/16 20:49 97.6 F 60 20 12/16/16 20:33 20 12/16/16 20:31 20 12/16/16 19:47 64 12/16/16 18:00 55 L 12/16/16 16:40 97.8 F 66 20 12/16/16 12:20 97.9 F 68 18 BP BP Pulse Ox 12/17/16 09:25 12/17/16 08:00 135/63 100 12/17/16 06:01 12/17/16 05:39 121/59 97 12/17/16 00:59 121/55 98 12/16/16 22:23 12/16/16 21:23 12/16/16 20:49 114/53 97 12/16/16 20:33 97 12/16/16 20:31 12/16/16 19:47 12/16/16 18:00 12/16/16 16:40 105/56 99 12/16/16 12:20 116/56 97 - Physical Examination General: No Apparent Distress HEENT: Positive: PERRL Neck: Positive: trachea midline Cardiac: Positive: Reg Rate and Rhythm Lungs: Positive: Decreased Breath Sounds Neuro: Positive: Other (right above-knee amputation) Extremities: Present: Other (Right AKA) - Labs and Meds Comprehensive Metabolic Panel 12/16/16 Range/Units 10:37 Sodium 141 (137-145) mmol/L Potassium 4.1 D (3.6-5.0) mmol/L Chloride 102.4 (98-107) mmol/L Carbon Dioxide 25 (22-30) mmol/L BUN 41 H (9-20) mg/dL Creatinine 1.3 (0.8-1.5) mg/dL Glucose 114 H (75-100) mg/dL Calcium 8.7 (8.4-10.2) mg/dL
--- NOTE | 2016-12-17 11:58 | Magnetic Resonance Report ---
MR LOWER EXTREMITY JOINT LEFT WITHOUT CONTRAST History: Left ankle swelling. Technique: Multisequence, multiplanar MRI without contrast. Findings: A large joint effusion is identified at the tibiotalar joint. The etiology of this effusion is not clearly evident. There are mild to moderate osteoarthritic changes at the ankle joint. There is no evidence for fracture, bone lesion or bone marrow edema. No evidence for osteomyelitis. There is also a large amount of fluid in the tendon sheath of the flexor hallucis longus. The tendon is intact. This may represent tenosynovitis. The remaining musculotendinous structures of the left ankle are within normal limits. The Achilles tendon is normal. The plantar fascia is unremarkable. No plantar spur is detected. The subcutaneous tissues are within normal limits. Impression: Large joint effusion. Mild to moderate osteoarthritic changes are identified. No evidence for fracture, bone lesion or osteomyelitis. Large amount of fluid in the flexor hallucis longus tendon may represent tenosynovitis. No tendon rupture is appreciated.
--- NOTE | 2016-12-17 14:39 | Progress Note ---
Assessment and Plan Assessment and plan: 66-year-old man who presents with left ankle pain, x-rays suspicious for osteomyelitis of the ankle MRI left lower extremity large joint effusion in the tibiotalar joints, and large fluid collection in the flexor pollicis longus that could represent tenosynovitis 1. L ankle pain/sepsis/left ankle acute arthritis and tenosynovitis Patient's was initially empirically treated for gouty attack, he also went on to have arthrocentesis which showed few white blood cells; he received prednisone; but did not improved, , and cultures were negative ID consult, hold antibiotics for now, continue pain management MR shows large fluid collect in tibiotalar joint as well as fluid collection in flexor pollicis longus which coud represent tenosynovitis -IR consult for arthrocentesis and fluid to be sent for analysis, 2. Hypertensive urgency Blood pressure currently improved on current medications 3. 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 Hyperlipidemia Statin resumed 5. PVD Status post remote R AKA 6. DVT prophylaxis Lovenox 7. Complete Imobility due to Frailty continue PT, continue supportive care, needs SNF placement Plan discussed with the patient History Interval history: He continues to complain of left ankle pain, decreased range of motion he states that the pain is worse when he tries to bear weight on the ankle. Pain ranges anywhere between 6-8 out of 10. It is exacerbated by bearing weight on it, the pain is a dull pain deep inside his ankle, I does not radiate anywhere. He denies fevers, denies chills Hospitalist Physical - Physical exam Narrative exam: General: Patient appears well in no distress HEENT: MMM, EOMI cardiac: S1-S2 heard lungs: clear to auscultation, abdomen: soft, nontender, nondistended bowel sounds positive extremities: Status post right AKA, no edema clubbing or cyanosis, left achilles tendon is tender to touch, left ankle range of motion is severely decreased due to pain, and there is no palpable effusion, no warmth, no erythema , no swelling Skin: no rash or lesion Neuro: no focal deficit Psych: appropriate behavior and mood, cognition intact - Constitutional Vitals: Temp Pulse Resp BP Pulse Ox 97.5 F L 72 18 146/64 100 12/17/16 12:25 12/17/16 12:25 12/17/16 12:25 12/17/16 12:25 12/17/16 10:00 General appearance: Present: no acute distress Results - Labs CBC & Chem 7: 12/16/16 10:37 12/16/16 10:37 Labs: Laboratory Last Values WBC 12.1 K/mm3 (4.5-11.0) H 12/16/16 10:37 RBC 4.38 M/mm3 (3.65-5.03) 12/16/16 10:37 Hgb 12.4 gm/dl (11.8-15.2) 12/16/16 10:37 Hct 38.6 % (35.5-45.6) 12/16/16 10:37 MCV 88 fl (84-94) 12/16/16 10:37 MCH 28 pg (28-32) 12/16/16 10:37 MCHC 32 % (32-34) 12/16/16 10:37 RDW 14.2 % (13.2-15.2) 12/16/16 10:37 Plt Count 256 K/mm3 (140-440) 12/16/16 10:37 Lymph % (Auto) 12.4 % (13.4-35.0) L 12/11/16 05:47 [place] % (Auto) 6.6 % (0.0-7.3) 12/11/16 05:47 Eos % (Auto) 0.2 % (0.0-4.3) 12/11/16 05:47 Baso % (Auto) 0.1 % (0.0-1.8) 12/11/16 05:47 Lymph # 1.9 K/mm3 (1.2-5.4) 12/11/16 05:47 [place] # 1.0 K/mm3 (0.0-0.8) H 12/11/16 05:47 Eos # 0.0 K/mm3 (0.0-0.4) 12/11/16 05:47 Baso # 0.0 K/mm3 (0.0-0.1) 12/11/16 05:47 Add Manual Diff Complete 12/14/16 05:06 Total Counted 100 12/14/16 05:06 Seg Neutrophils % 80.7 % (40.0-70.0) H 12/11/16 05:47 Seg Neuts % (Manual) 65.0 % (40.0-70.0) 12/14/16 05:06 Band Neutrophils % 13.0 % 12/14/16 05:06 Lymphocytes % (Manual) 14.0 % (13.4-35.0) 12/14/16 05:06 Reactive Lymphs % (Man) 0 % 12/14/16 05:06 Monocytes % (Manual) 4.0 % (0.0-7.3) 12/14/16 05:06 Eosinophils % (Manual) 0 % (0.0-4.3) 12/14/16 05:06 Basophils % (Manual) 0 % (0.0-1.8) 12/14/16 05:06 Metamyelocytes % 4.0 % 12/14/16 05:06 Myelocytes % 0 % 12/14/16 05:06 Promyelocytes % 0 % 12/14/16 05:06 Blast Cells % 0 % 12/14/16 05:06 Nucleated RBC % Not Reportable 12/14/16 05:06 Seg Neutrophils # 12.6 K/mm3 (1.8-7.7) H 12/11/16 05:47 Seg Neutrophils # Man 15.2 K/mm3 (1.8-7.7) H 12/14/16 05:06 Band Neutrophils # 3.0 K/mm3 12/14/16 05:06 Lymphocytes # (Manual) 3.3 K/mm3 (1.2-5.4) 12/14/16 05:06 Abs React Lymphs (Man) 0.0 K/mm3 12/14/16 05:06 Monocytes # (Manual) 0.9 K/mm3 (0.0-0.8) H 12/14/16 05:06 Eosinophils # (Manual) 0.0 K/mm3 (0.0-0.4) 12/14/16 05:06 Basophils # (Manual) 0.0 K/mm3 (0.0-0.1) 12/14/16 05:06 Metamyelocytes # 0.9 K/mm3 12/14/16 05:06 Myelocytes # 0.0 K/mm3 12/14/16 05:06 Promyelocytes # 0.0 K/mm3 12/14/16 05:06 Blast Cells # 0.0 K/mm3 12/14/16 05:06 WBC Morphology Not Reportable 12/14/16 05:06 Hypersegmented Neuts Not Reportable 12/14/16 05:06 Hyposegmented Neuts Not Reportable 12/14/16 05:06 Hypogranular Neuts Not Reportable 12/14/16 05:06 Smudge Cells Not Reportable 12/14/16 05:06 Toxic Granulation Not Reportable 12/14/16 05:06 Toxic Vacuolation Not Reportable 12/14/16 05:06 Dohle Bodies Not Reportable 12/14/16 05:06 Pelger-Huet Anomaly Not Reportable 12/14/16 05:06 Tonie Rods Not Reportable 12/14/16 05:06 Platelet Estimate Consistent w auto 12/14/16 05:06 Clumped Platelets Not Reportable 12/14/16 05:06 Plt Clumps, EDTA Not Reportable 12/14/16 05:06 Large Platelets Not Reportable 12/14/16 05:06 Giant Platelets Not Reportable 12/14/16 05:06 Platelet Satelliting Not Reportable 12/14/16 05:06 Plt Morphology Comment Not Reportable 12/14/16 05:06 RBC Morphology Normal 12/14/16 05:06 Dimorphic RBCs Not Reportable 12/14/16 05:06 Polychromasia Not Reportable 12/14/16 05:06 Hypochromasia Not Reportable 12/14/16 05:06 Poikilocytosis Not Reportable 12/14/16 05:06 Anisocytosis Not Reportable 12/14/16 05:06 Microcytosis Not Reportable 12/14/16 05:06 Macrocytosis Not Reportable 12/14/16 05:06 Spherocytes Not Reportable 12/14/16 05:06 Pappenheimer Bodies Not Reportable 12/14/16 05:06 Sickle Cells Not Reportable 12/14/16 05:06 Target Cells Not Reportable 12/14/16 05:06 Tear Drop Cells Not Reportable 12/14/16 05:06 Ovalocytes Not Reportable 12/14/16 05:06 Helmet Cells Not Reportable 12/14/16 05:06 [place] Bodies Not Reportable 12/14/16 05:06 [place] Rings Not Reportable 12/14/16 05:06 Vandana Cells Not Reportable 12/14/16 05:06 Bite Cells Not Reportable 12/14/16 05:06 Crenated Cell Not Reportable 12/14/16 05:06 Elliptocytes Not Reportable 12/14/16 05:06 Acanthocytes (Spur) Not Reportable 12/14/16 05:06 Rouleaux Not Reportable 12/14/16 05:06 Hemoglobin C Crystals Not Reportable 12/14/16 05:06 Schistocytes Not Reportable 12/14/16 05:06 Malaria parasites Not Reportable 12/14/16 05:06 ESR 47 mm/Hr (0-20) 12/07/16 21:31 Bam Bodies Not Reportable 12/14/16 05:06 Hem Pathologist Commnt No 12/14/16 05:06 PT 14.0 Sec. (12.2-14.9) 12/08/16 02:08 INR 1.09 (0.87-1.13) 12/08/16 02:08 Sodium 141 mmol/L (137-145) 12/16/16 10:37 Potassium 4.1 mmol/L (3.6-5.0) D 12/16/16 10:37 Chloride 102.4 mmol/L (98-107) 12/16/16 10:37 Carbon Dioxide 25 mmol/L (22-30) 12/16/16 10:37 Anion Gap 18 mmol/L 12/16/16 10:37 BUN 41 mg/dL (9-20) H 12/16/16 10:37 Creatinine 1.3 mg/dL (0.8-1.5) 12/16/16 10:37 Estimated GFR > 60 ml/min 12/16/16 10:37 BUN/Creatinine Ratio 31.53 % 12/16/16 10:37 Glucose 114 mg/dL (75-100) H 12/16/16 10:37 Lactic Acid 2.10 mmol/L (0.7-2.0) H* 12/08/16 02:08 Uric Acid 12.0 mg/dL (3.5-7.6) H 12/07/16 21:31 Calcium 8.7 mg/dL (8.4-10.2) 12/16/16 10:37 Total Creatine Kinase 99 units/L (55-170) 12/13/16 07:13 Troponin T < 0.010 ng/mL (0.00-0.029) 12/13/16 14:04 C-Reactive Protein 2.80 mg/dL (0.00-1.30) H 12/07/16 21:31 Urine Color Yellow (Yellow) 12/08/16 01:26 Urine Turbidity Clear (Clear) 12/08/16 01:26 Urine pH 5.0 (5.0-7.0) 12/08/16 01:26 Ur Specific [place] 1.020 (1.003-1.030) 12/08/16 01:26 Urine Protein <15 mg/dl mg/dL (Negative) 12/08/16 01:26 Urine Glucose (UA) Neg mg/dL (Negative) 12/08/16 01:26 Urine Ketones Neg mg/dL (Negative) 12/08/16 01:26 Urine Blood Neg (Negative) 12/08/16 01:26 Urine Nitrite Neg (Negative) 12/08/16 01:26 Urine Bilirubin Neg (Negative) 12/08/16 01:26 Urine Urobilinogen < 2.0 mg/dL (<2.0) 12/08/16 01:26 Ur Leukocyte Esterase Neg (Negative) 12/08/16 01:26 Urine WBC (Auto) 1.0 /HPF (0.0-6.0) 12/08/16 01:26 Urine RBC (Auto) 4.0 /HPF (0.0-6.0) 12/08/16 01:26 U Epithel Cells (Auto) < 1.0 /HPF (0-13.0) 12/08/16 01:26 Hyaline Casts 5 /LPF 12/08/16 01:26 Urine Mucus Few /HPF 12/08/16 01:26 Fluid Type Synovial 12/08/16 03:48 Fluid Color Red 12/08/16 03:48 Fluid Appearance Turbid 12/08/16 03:48 Fluid pH TNR 12/08/16 03:48 Fluid WBC TNR 12/08/16 03:48 Fluid RBC TNR 12/08/16 03:48 Fluid Seg Neutrophils TNR 12/08/16 03:48 Fluid Lymphocytes TNR 12/08/16 03:48 Fluid Reactive Lymphs TNR 12/08/16 03:48 Fluid Monocytes TNR 12/08/16 03:48 Fluid Eosinophils TNR 12/08/16 03:48 Fluid Basophils TNR 12/08/16 03:48 Fluid Total Protein 6.3 (15.0-45.0) L 12/08/16 03:48 Fluid LDH > 1200 12/08/16 03:48 Fluid Comment See add'l comments 12/08/16 03:48 Synovial Crystals Msu crystals (NONE SEEN) 12/08/16 03:48 - Imaging and Cardiology Imaging and Cardiology: MRI LE, image reviewed large joint effusion in the tibiotalar joints, and large fluid collection in the flexor pollicis longus that could represent tenosynovitis
--- NOTE | 2016-12-17 14:46 | Event Note ---
Date: 12/17/16 The ankle swelling is significantly improved, has some degree of pain. I have reviewed the bone scan and there is no evidence of bone infection, osteomyelitis. Previous aspirate had been negative and ID has confirmed there is no evidence of infection. I do not have anything more to offer this time, we'll sign off, continued symptomatic treatment.
[2016-12-18 05:40] LABS: Albumin 3.5 g/dL (3.9-5); Albumin/Globulin Ratio 1.2 %; BUN/Creatinine Ratio 24.66; Bilirubin,Total 0.2 mg/dL (0.1-1.2); Calcium 8.7 mg/dL (8.4-10.2); Chloride 103.1 mmol/L (98-107); Potassium 4.7 mmol/L (3.6-5.0); Total Protein 6.4 g/dL (6.3-8.2)
[2016-12-18] MEDS: MOTRIN PO SCH ×3 (07:00→22:50)
[2016-12-18] MEDS: ECOTRIN PO SCH (10:29)
[2016-12-18] MEDS: LOVENOX SUB-Q SCH (10:29)
[2016-12-18] MEDS: LASIX PO SCH (10:29)
[2016-12-18] MEDS: PROCARDIA XL PO SCH (10:29)
[2016-12-18] MEDS: COREG PO SCH ×2 (10:30→22:50)
[2016-12-18] MEDS: PROTONIX PO SCH (10:30)
[2016-12-18] MEDS: ZESTRIL PO SCH (10:33)
--- NOTE | 2016-12-18 13:23 | Event Note ---
Date: 12/18/16 Although left ankle swelling and pain are most likely due to a presumptive gout diagnosis, still intended to screen for GC/ chlamydia. This was inadvertently not done previously. While patient remains for rehab placement, will screen with urine specimen.
[2016-12-19] MEDS: MOTRIN PO SCH ×3 (06:50→22:00)
--- NOTE | 2016-12-19 09:03 | Progress Note ---
Assessment and Plan Assessment and plan: 66-year-old man who presents with left ankle pain, x-rays suspicious for osteomyelitis of the ankle MRI left lower extremity large joint effusion in the tibiotalar joints, and large fluid collection in the flexor pollicis longus that could represent tenosynovitis 1. L ankle pain/sepsis/left ankle acute arthritis and tenosynovitis Patient's was initially empirically treated for gouty attack, he also went on to have arthrocentesis which showed few white blood cells; he received prednisone; but did not improved, , and cultures were negative ID consult, hold antibiotics for now, continue pain management, screen for Gonorrhea/Chlamydia MR shows large fluid collect in tibiotalar joint as well as fluid collection in flexor pollicis longus which coud represent tenosynovitis -Dr. Burks/orthopedic surgery input appreciated, cultures have been negative, no further surgical intervention needed. Continue physical therapy, continue pain medications, patient appears to be improving. Patient is planned for rehabilitation placement. 2. Hypertensive urgency Blood pressure currently improved on current medications 3. 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 Hyperlipidemia Statin resumed 5. PVD Status post remote R AKA 6. DVT prophylaxis Lovenox 7. Complete Imobility due to Frailty continue PT, continue supportive care, needs SNF placement Plan discussed with the patient History Interval history: He continues to complain of left ankle pain, decreased range of motion he states that the pain is worse when he tries to bear weight on the ankle. Pain ranges anywhere between 4-6/10, interval imrovement in pain, t is exacerbated by bearing weight on it, the pain is a dull pain deep inside his ankle, I does not radiate anywhere. He denies fevers, denies chills Hospitalist Physical - Physical exam Narrative exam: General: Patient appears well in no distress HEENT: MMM, EOMI cardiac: S1-S2 heard lungs: clear to auscultation, abdomen: soft, nontender, nondistended bowel sounds positive extremities: Status post right AKA, no edema clubbing or cyanosis, left achilles tendon is tender to touch, left ankle range of motion is moderately decreased due to pain, and there is no palpable effusion, no warmth, no erythema , no swelling- interval improvement in L ankle pain Skin: no rash or lesion Neuro: no focal deficit Psych: appropriate behavior and mood, cognition intact - Constitutional Vitals: Temp Pulse Resp BP Pulse Ox 98.1 F 68 21 114/58 94 12/19/16 06:00 12/19/16 06:00 12/19/16 06:00 12/19/16 06:00 12/19/16 06:00 General appearance: Present: no acute distress Results - Labs CBC & Chem 7: 12/16/16 10:37 12/18/16 04:13 Labs: Laboratory Last Values WBC 12.1 K/mm3 (4.5-11.0) H 12/16/16 10:37 RBC 4.38 M/mm3 (3.65-5.03) 12/16/16 10:37 Hgb 12.4 gm/dl (11.8-15.2) 12/16/16 10:37 Hct 38.6 % (35.5-45.6) 12/16/16 10:37 MCV 88 fl (84-94) 12/16/16 10:37 MCH 28 pg (28-32) 12/16/16 10:37 MCHC 32 % (32-34) 12/16/16 10:37 RDW 14.2 % (13.2-15.2) 12/16/16 10:37 Plt Count 256 K/mm3 (140-440) 12/16/16 10:37 Lymph % (Auto) 12.4 % (13.4-35.0) L 12/11/16 05:47 [place] % (Auto) 6.6 % (0.0-7.3) 12/11/16 05:47 Eos % (Auto) 0.2 % (0.0-4.3) 12/11/16 05:47 Baso % (Auto) 0.1 % (0.0-1.8) 12/11/16 05:47 Lymph # 1.9 K/mm3 (1.2-5.4) 12/11/16 05:47 [place] # 1.0 K/mm3 (0.0-0.8) H 12/11/16 05:47 Eos # 0.0 K/mm3 (0.0-0.4) 12/11/16 05:47 Baso # 0.0 K/mm3 (0.0-0.1) 12/11/16 05:47 Add Manual Diff Complete 12/14/16 05:06 Total Counted 100 12/14/16 05:06 Seg Neutrophils % 80.7 % (40.0-70.0) H 12/11/16 05:47 Seg Neuts % (Manual) 65.0 % (40.0-70.0) 12/14/16 05:06 Band Neutrophils % 13.0 % 12/14/16 05:06 Lymphocytes % (Manual) 14.0 % (13.4-35.0) 12/14/16 05:06 Reactive Lymphs % (Man) 0 % 12/14/16 05:06 Monocytes % (Manual) 4.0 % (0.0-7.3) 12/14/16 05:06 Eosinophils % (Manual) 0 % (0.0-4.3) 12/14/16 05:06 Basophils % (Manual) 0 % (0.0-1.8) 12/14/16 05:06 Metamyelocytes % 4.0 % 12/14/16 05:06 Myelocytes % 0 % 12/14/16 05:06 Promyelocytes % 0 % 12/14/16 05:06 Blast Cells % 0 % 12/14/16 05:06 Nucleated RBC % Not Reportable 12/14/16 05:06 Seg Neutrophils # 12.6 K/mm3 (1.8-7.7) H 12/11/16 05:47 Seg Neutrophils # Man 15.2 K/mm3 (1.8-7.7) H 12/14/16 05:06 Band Neutrophils # 3.0 K/mm3 12/14/16 05:06 Lymphocytes # (Manual) 3.3 K/mm3 (1.2-5.4) 12/14/16 05:06 Abs React Lymphs (Man) 0.0 K/mm3 12/14/16 05:06 Monocytes # (Manual) 0.9 K/mm3 (0.0-0.8) H 12/14/16 05:06 Eosinophils # (Manual) 0.0 K/mm3 (0.0-0.4) 12/14/16 05:06 Basophils # (Manual) 0.0 K/mm3 (0.0-0.1) 12/14/16 05:06 Metamyelocytes # 0.9 K/mm3 12/14/16 05:06 Myelocytes # 0.0 K/mm3 12/14/16 05:06 Promyelocytes # 0.0 K/mm3 12/14/16 05:06 Blast Cells # 0.0 K/mm3 12/14/16 05:06 WBC Morphology Not Reportable 12/14/16 05:06 Hypersegmented Neuts Not Reportable 12/14/16 05:06 Hyposegmented Neuts Not Reportable 12/14/16 05:06 Hypogranular Neuts Not Reportable 12/14/16 05:06 Smudge Cells Not Reportable 12/14/16 05:06 Toxic Granulation Not Reportable 12/14/16 05:06 Toxic Vacuolation Not Reportable 12/14/16 05:06 Dohle Bodies Not Reportable 12/14/16 05:06 Pelger-Huet Anomaly Not Reportable 12/14/16 05:06 Tonie Rods Not Reportable 12/14/16 05:06 Platelet Estimate Consistent w auto 12/14/16 05:06 Clumped Platelets Not Reportable 12/14/16 05:06 Plt Clumps, EDTA Not Reportable 12/14/16 05:06 Large Platelets Not Reportable 12/14/16 05:06 Giant Platelets Not Reportable 12/14/16 05:06 Platelet Satelliting Not Reportable 12/14/16 05:06 Plt Morphology Comment Not Reportable 12/14/16 05:06 RBC Morphology Normal 12/14/16 05:06 Dimorphic RBCs Not Reportable 12/14/16 05:06 Polychromasia Not Reportable 12/14/16 05:06 Hypochromasia Not Reportable 12/14/16 05:06 Poikilocytosis Not Reportable 12/14/16 05:06 Anisocytosis Not Reportable 12/14/16 05:06 Microcytosis Not Reportable 12/14/16 05:06 Macrocytosis Not Reportable 12/14/16 05:06 Spherocytes Not Reportable 12/14/16 05:06 Pappenheimer Bodies Not Reportable 12/14/16 05:06 Sickle Cells Not Reportable 12/14/16 05:06 Target Cells Not Reportable 12/14/16 05:06 Tear Drop Cells Not Reportable 12/14/16 05:06 Ovalocytes Not Reportable 12/14/16 05:06 Helmet Cells Not Reportable 12/14/16 05:06 [place] Bodies Not Reportable 12/14/16 05:06 [place] Rings Not Reportable 12/14/16 05:06 Vandana Cells Not Reportable 12/14/16 05:06 Bite Cells Not Reportable 12/14/16 05:06 Crenated Cell Not Reportable 12/14/16 05:06 Elliptocytes Not Reportable 12/14/16 05:06 Acanthocytes (Spur) Not Reportable 12/14/16 05:06 Rouleaux Not Reportable 12/14/16 05:06 Hemoglobin C Crystals Not Reportable 12/14/16 05:06 Schistocytes Not Reportable 12/14/16 05:06 Malaria parasites Not Reportable 12/14/16 05:06 ESR 47 mm/Hr (0-20) 12/07/16 21:31 Bam Bodies Not Reportable 12/14/16 05:06 Hem Pathologist Commnt No 12/14/16 05:06 PT 14.0 Sec. (12.2-14.9) 12/08/16 02:08 INR 1.09 (0.87-1.13) 12/08/16 02:08 Sodium 139 mmol/L (137-145) 12/18/16 04:13 Potassium 4.7 mmol/L (3.6-5.0) 12/18/16 04:13 Chloride 103.1 mmol/L (98-107) 12/18/16 04:13 Carbon Dioxide 23 mmol/L (22-30) 12/18/16 04:13 Anion Gap 18 mmol/L 12/18/16 04:13 BUN 37 mg/dL (9-20) H 12/18/16 04:13 Creatinine 1.5 mg/dL (0.8-1.5) 12/18/16 04:13 Estimated GFR 57 ml/min 12/18/16 04:13 BUN/Creatinine Ratio 24.66 % 12/18/16 04:13 Glucose 115 mg/dL (75-100) H 12/18/16 04:13 Lactic Acid 2.10 mmol/L (0.7-2.0) H* 12/08/16 02:08 Uric Acid 12.0 mg/dL (3.5-7.6) H 12/07/16 21:31 Calcium 8.7 mg/dL (8.4-10.2) 12/18/16 04:13 Total Bilirubin 0.20 mg/dL (0.1-1.2) 12/18/16 04:13 AST 17 units/L (5-40) 12/18/16 04:13 ALT 45 units/L (7-56) 12/18/16 04:13 Alkaline Phosphatase 79 units/L (35-129) 12/18/16 04:13 Total Creatine Kinase 99 units/L (55-170) 12/13/16 07:13 Troponin T < 0.010 ng/mL (0.00-0.029) 12/13/16 14:04 C-Reactive Protein 2.80 mg/dL (0.00-1.30) H 12/07/16 21:31 Total Protein 6.4 g/dL (6.3-8.2) 12/18/16 04:13 Albumin 3.5 g/dL (3.9-5) L 12/18/16 04:13 Albumin/Globulin Ratio 1.2 % 12/18/16 04:13 Urine Color Yellow (Yellow) 12/08/16 01:26 Urine Turbidity Clear (Clear) 12/08/16 01:26 Urine pH 5.0 (5.0-7.0) 12/08/16 01:26 Ur Specific [place] 1.020 (1.003-1.030) 12/08/16 01:26 Urine Protein <15 mg/dl mg/dL (Negative) 12/08/16 01:26 Urine Glucose (UA) Neg mg/dL (Negative) 12/08/16 01:26 Urine Ketones Neg mg/dL (Negative) 12/08/16 01:26 Urine Blood Neg (Negative) 12/08/16 01:26 Urine Nitrite Neg (Negative) 12/08/16 01:26 Urine Bilirubin Neg (Negative) 12/08/16 01:26 Urine Urobilinogen < 2.0 mg/dL (<2.0) 12/08/16 01:26 Ur Leukocyte Esterase Neg (Negative) 12/08/16 01:26 Urine WBC (Auto) 1.0 /HPF (0.0-6.0) 12/08/16 01:26 Urine RBC (Auto) 4.0 /HPF (0.0-6.0) 12/08/16 01:26 U Epithel Cells (Auto) < 1.0 /HPF (0-13.0) 12/08/16 01:26 Hyaline Casts 5 /LPF 12/08/16 01:26 Urine Mucus Few /HPF 12/08/16 01:26 Fluid Type Synovial 12/08/16 03:48 Fluid Color Red 12/08/16 03:48 Fluid Appearance Turbid 12/08/16 03:48 Fluid pH TNR 12/08/16 03:48 Fluid WBC TNR 12/08/16 03:48 Fluid RBC TNR 12/08/16 03:48 Fluid Seg Neutrophils TNR 12/08/16 03:48 Fluid Lymphocytes TNR 12/08/16 03:48 Fluid Reactive Lymphs TNR 12/08/16 03:48 Fluid Monocytes TNR 12/08/16 03:48 Fluid Eosinophils TNR 12/08/16 03:48 Fluid Basophils TNR 12/08/16 03:48 Fluid Total Protein 6.3 (15.0-45.0) L 12/08/16 03:48 Fluid LDH > 1200 12/08/16 03:48 Fluid Comment See add'l comments 12/08/16 03:48 Synovial Crystals Msu crystals (NONE SEEN) 12/08/16 03:48
[2016-12-19] MEDS: LOVENOX SUB-Q SCH (09:42)
[2016-12-19] MEDS: ZESTRIL PO SCH (09:43)
[2016-12-19] MEDS: PROCARDIA XL PO SCH (09:43)
[2016-12-19] MEDS: ECOTRIN PO SCH (09:43)
[2016-12-19] MEDS: COREG PO SCH ×3 (09:43→22:00)
[2016-12-19] MEDS: LASIX PO SCH (09:43)
[2016-12-19] MEDS: PROTONIX PO SCH (09:43)
[2016-12-20] MEDS: MOTRIN PO SCH (05:44)
[2016-12-20 08:29] VITALS: BP 152/68
[2016-12-20] MEDS: ECOTRIN PO SCH (09:55)
[2016-12-20] MEDS: COREG PO SCH (09:55)
[2016-12-20] MEDS: LASIX PO SCH (09:55)
[2016-12-20] MEDS: ZESTRIL PO SCH (09:55)
[2016-12-20] MEDS: LOVENOX SUB-Q SCH (09:55)
[2016-12-20] MEDS: PROCARDIA XL PO SCH (09:55)
[2016-12-20] MEDS: PROTONIX PO SCH (09:55)
--- NOTE | 2016-12-20 10:45 | Discharge Summary ---
Providers - Providers Date of Admission: 12/08/16 05:20 Attending physician: ADRY BAILEY MD 12/10/16 04:10 Consult to Dietitian/Nutrition [CONS] Routine Physician Instructions: Reason For Exam: Reason for Consult: Kyaw score of 16 12/14/16 17:00 Consult to Physician [CONS] Routine Consulting Provider: ANNIE MOLINA Reason For Exam: ? Pain/ swelling, ?ROM Place consult to:: Dr Molina Notified:: y Was contact made?: Yes If yes, spoke with:: Dr Ty Time called:: 17:30 Comment:: Left ankle septic arthritis 12/15/16 09:46 Physical Therapy Evaluation and Treat [CONS] Routine Comment: Reason For Exam: debility Primary care physician: KATIUSKA SPENCER Hospitalization Condition: Good Hospital course: 66-year-old man who presents with left ankle pain, x-rays suspicious for osteomyelitis of the ankle MRI left lower extremity large joint effusion in the tibiotalar joints, and large fluid collection in the flexor pollicis longus that could represent tenosynovitis 1. L ankle pain/sepsis/left ankle acute arthritis and tenosynovitis Patient's was initially empirically treated for gouty attack, he also went on to have arthrocentesis which showed few white blood cells; he received prednisone; but did not improved, , and cultures were negative ID consult, hold antibiotics for now, continue pain management, screen for Gonorrhea/Chlamydia MR shows large fluid collect in tibiotalar joint as well as fluid collection in flexor pollicis longus which coud represent tenosynovitis -Dr. Burks/orthopedic surgery input appreciated, cultures have been negative, no further surgical intervention needed. Continue physical therapy, continue pain medications, patient appears to be improving. Patient is planned for rehabilitation placement. 2. Hypertensive urgency Blood pressure currently improved on current medications 3. 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 Hyperlipidemia Statin resumed 5. PVD Status post remote R AKA 6. DVT prophylaxis Lovenox 7. Complete Imobility due to Frailty continue PT, continue supportive care, needs SNF placement Plan discussed with the patient Disposition: DC/[place] HOME UNDER HOME HEALTH Time spent for discharge: 35 minutes Core Measure Documentation - Palliative Care Palliative Care/ Comfort Measures: Not Applicable - Core Measures Any of the following diagnoses?: none Exam - Physical Exam Narrative exam: General: Patient appears well in no distress HEENT: MMM, EOMI cardiac: S1-S2 heard lungs: clear to auscultation, abdomen: soft, nontender, nondistended bowel sounds positive extremities: Status post right AKA, no edema clubbing or cyanosis, left achilles tendon is tender to touch, left ankle range of motion is moderately decreased due to pain, and there is no palpable effusion, no warmth, no erythema , no swelling- interval improvement in L ankle pain Skin: no rash or lesion Neuro: no focal deficit Psych: appropriate behavior and mood, cognition intact - Constitutional Vitals: Temp Pulse Resp BP Pulse Ox 97.6 F 65 18 152/68 99 12/20/16 08:00 12/20/16 10:07 12/20/16 08:00 12/20/16 08:00 12/20/16 08:00 Plan Follow up with: KATIUSKA SPENCER MD [Primary Care Provider] - 3-5 Days Prescriptions: Colchicine [Colcrys] 0.6 mg PO DAILY PRN #30 tablet PRN Reason: gout Lisinopril [Zestril TAB] 40 mg PO QDAY #30 tablet NIFEdipine XL [Procardia Xl] 90 mg PO QDAY #30 tablet oxyCODONE /ACETAMINOPHEN [Percocet 5/325 mg] 1 tab PO Q6H PRN #30 tablet PRN Reason: Pain, Moderate (4-6)
== END 2016-12-20 16:00 | disposition home health service (06) | DRG 871 ==
LOC: ED 21:01 → 4A 12-08 05:20
PROVIDERS: ADMIT Internal Medicine; ATTEND Internal Medicine
PROC: 0S9G3ZZ Drainage of Left Ankle Joint, Percutaneous Approach (ICD-10-PCS; principal; 2016-12-08)
DX: A41.9 Sepsis, unspecified organism (principal); R53.2 Functional quadriplegia; I50.22 Chronic systolic (congestive) heart failure; N17.9 Acute kidney failure, unspecified; M86.172 Other acute osteomyelitis, left ankle and foot; M10.9 Gout, unspecified; E78.5 Hyperlipidemia, unspecified; I16.0 Hypertensive urgency; M13.872 Other specified arthritis, left ankle and foot; M65.872 Other synovitis and tenosynovitis, left ankle and foot; I25.10 Atherosclerotic heart disease of native coronary artery without angina pectoris; I11.0 Hypertensive heart disease with heart failure; I73.9 Peripheral vascular disease, unspecified; J44.9 Chronic obstructive pulmonary disease, unspecified; I25.5 Ischemic cardiomyopathy; M25.472 Effusion, left ankle; Z89.611 Acquired absence of right leg above knee; Z95.5 Presence of coronary angioplasty implant and graft; Z82.49 Family history of ischemic heart disease and other diseases of the circulatory system
CPT/HCPCS: 36415; 73721; 78452; 80048; 80053; 81001; 82140; 82550; 83605; 84160; 84484; 84550; 85007; 85025; 85027; 85048; 85610; 85652; 86140; 87040; 87075; 87116; 87591; 89051; 93017; 96365; 96367; 96375; A9270-GY; A9502; G8978-GP; G8979-GP; G8980-GP; J0360; J0696; J1170; J1650; J1885; J2270; J2785; J3010; J3370; J7040; J7512

== ENCOUNTER 2020-11-19 10:40 | Emergency (ER) | payer MEDICARE ==
--- NOTE | 2020-11-19 11:19 | Emergency Department Report ---
ED Chest Pain HPI - General Chief Complaint: High BP Stated Complaint: ELEVATED BLOOD PRESSURE Time Seen by Provider: 11/19/20 11:02 Source: EMS Mode of arrival: Stretcher Limitations: Other - History of Present Illness Initial Comments: 70-year-old male, hypertension, CAD, CHF (EF 20-25%), presents to ED with complaint of chest pain since yesterday. Patient states he is having left-sided chest pain with exertion. Patient states pain feels "like lightening." When clarified, patient states the pain is sharp. States pain is intermittent and worse with exertion, relieved with rest. He reports associated diaphoresis. Denies any nausea, vomiting, shortness of breath. EMS was called this morning because pain was worse and blood pressure was elevated. Patient denies any chest pain at this time, states "only when I move around." Patient given aspirin and nitro by EMS. Heliarc Welder: [facility] Complaint: chest pain -: days(s) (2) Onset: during exertion Pain Location: left chest Pain Radiation: none Severity: moderate Severity scale (0 -10): 0 Quality: sharp Consistency: intermittent Improves With: rest Worsens With: movement re: diaphoresis. denies: nausea, vomting, dyspnea Other Symptoms: denies: cough, fever, leg swelling Treatments Prior to Arrival: aspirin, nitroglycerin - Related Data Home Medications Medication Instructions Recorded Confirmed Last Taken AtorvaSTATin [Lipitor] 40 mg PO QHS 11/19/20 11/19/20 Unknown Furosemide [Lasix TAB] 40 mg PO QDAY 11/19/20 11/19/20 Unknown NIFEdipine [Nifedipine ER] 60 mg PO QDAY 11/19/20 11/19/20 Unknown Nitroglycerin [Nitrostat] 0.4 mg SL Q5M PRN 11/19/20 11/19/20 Unknown carvediloL [Coreg] 25 mg PO BID 11/19/20 11/19/20 Unknown hydroCHLOROthiazide [HCTZ] 25 mg PO QDAY 11/19/20 11/19/20 Unknown lisinopriL [Zestril TAB] 40 mg PO QDAY 11/19/20 11/19/20 Unknown Allergies Allergy/AdvReac Type Severity Reaction Status Date / Time No Known Allergies Allergy Verified 04/15/14 18:09 Heart Score - HEART Score History: Moderately suspicious EKG: Non-specific Age: > 65 Risk factors: > 3 risk factors or hx of atherosclerotic disease Troponin: < normal limit HEART Score: 6 - EKG Read Time Time EKG Completed: 10:50 EKG Read Time: 11:05 ED Review of Systems ROS: Stated complaint: ELEVATED BLOOD PRESSURE Other details as noted in HPI Comment: All other systems reviewed and negative Constitutional: denies: chills, fever Respiratory: denies: shortness of breath Cardiovascular: chest pain Gastrointestinal: denies: nausea, vomiting ED Past Medical Hx - Past Medical History Hx Hypertension: Yes Hx Heart Attack/AMI: No Hx Congestive Heart Failure: Yes Hx Diabetes: No Hx Deep Vein Thrombosis: No Hx Asthma: Yes Hx COPD: Yes Additional medical history: High Cholesterol. angina/cardiac stents - Surgical History Hx Coronary Stent: Yes Hx Pacemaker: No Hx Internal Defibrillator: No Additional Surgical History: Rt BKA. Cardiac Stents placed - Social History Smoking Status: Never Smoker - Medications Home Medications: Home Medications Medication Instructions Recorded Confirmed Last Taken Type AtorvaSTATin [Lipitor] 40 mg PO QHS 11/19/20 11/19/20 Unknown History Furosemide [Lasix TAB] 40 mg PO QDAY 11/19/20 11/19/20 Unknown History NIFEdipine [Nifedipine ER] 60 mg PO QDAY 11/19/20 11/19/20 Unknown History Nitroglycerin [Nitrostat] 0.4 mg SL Q5M PRN 11/19/20 11/19/20 Unknown History carvediloL [Coreg] 25 mg PO BID 11/19/20 11/19/20 Unknown History hydroCHLOROthiazide [HCTZ] 25 mg PO QDAY 11/19/20 11/19/20 Unknown History lisinopriL [Zestril TAB] 40 mg PO QDAY 11/19/20 11/19/20 Unknown History ED Physical Exam - General Limitations: Other General appearance: alert, in no apparent distress - Head Head exam: Present: atraumatic, normocephalic - Eye Eye exam: Present: normal appearance, EOMI - ENT ENT exam: Present: mucous membranes moist - Neck Neck exam: Present: normal inspection - Respiratory Respiratory exam: Present: normal lung sounds bilaterally. Absent: respiratory distress - Cardiovascular Cardiovascular Exam: Present: regular rate, normal rhythm - GI/Abdominal GI/Abdominal exam: Present: soft. Absent: distended, tenderness - Extremities Exam Extremities exam: Present: other (Right BKA present) - Neurological Exam Neurological exam: Present: alert, oriented X3 - Psychiatric Psychiatric exam: Present: normal affect, normal mood - Skin Skin exam: Present: warm, dry, intact, normal color ED Course Vital Signs 11/19/20 11/19/20 11/19/20 10:51 11:01 11:02 Temperature 98.1 F Pulse Rate 78 Respiratory 17 Rate Blood Pressure Blood Pressure 208/94 [Right] O2 Sat by Pulse 100 99 Oximetry 11/19/20 11/19/20 11/19/20 11:15 11:31 12:01 Temperature Pulse Rate 75 79 67 Respiratory 20 16 14 Rate Blood Pressure 214/91 160/76 166/71 Blood Pressure [Right] O2 Sat by Pulse 100 98 99 Oximetry 11/19/20 11/19/20 11/19/20 12:31 13:00 14:45 Temperature Pulse Rate 73 70 69 Respiratory 21 17 16 Rate Blood Pressure 179/87 186/75 185/65 Blood Pressure [Right] O2 Sat by Pulse 100 100 99 Oximetry 11/19/20 11/19/20 11/19/20 15:01 15:31 16:31 Temperature Pulse Rate 69 73 67 Respiratory 13 14 11 L Rate Blood Pressure 185/65 172/75 177/75 Blood Pressure [Right] O2 Sat by Pulse 98 100 97 Oximetry 11/19/20 16:55 Temperature Pulse Rate 78 Respiratory 15 Rate Blood Pressure Blood Pressure 158/77 [Right] O2 Sat by Pulse 100 Oximetry - Consultations Consultation #1: 11/19/20 14:21 Spoke w/ Dr Ferro. Had cath in February 2020. No stents placed at that time. Since CTA neg, pt to f/u in office. WAYLON score - Waylon Score Age > 65: (1) Yes Aspirin use within the Past 7 Days: (1) Yes 3 or more CAD Risk Factors: (1) Yes 2 or more Angina events in past 24 hrs: (0) No Known CAD with more than 50% Stenosis: (1) Yes Elevated Cardiac Markers: (0) No ST Deviation Greater than 0.5mm: (1) Yes WAYLON Score: 5 ED Medical Decision Making - Lab Data Result diagrams: 11/19/20 11:22 11/19/20 11:22 - EKG Data -: EKG Interpreted by Me EKG shows normal: sinus rhythm, axis, intervals, QRS complexes Rate: normal - EKG Data Interpretation: no acute changes, nonspecific ST-T wave isa, other (Old inferior infarct) - Radiology Data Radiology results: report reviewed, image reviewed - Medical Decision Making 7-year-old male presents to ED with chest pain since yesterday, worse with movement, and elevated blood pressure. EKG shows no ST changes. Troponin negative x2. CTA chest was obtained which is negative for any acute findings. Blood pressure managed with labetalol, and has improved significantly. Patient has been chest pain-free throughout his entire ED stay. Patient had a cardiac cath in February 2020. No intervention was done at that time. I spoke with Dr. Ferro, pearl glue drier [facility], who believes patient can be s afely discharged and follow-up in the office. - Differential Diagnosis ACS, PE, aortic dissection, chest wall pain Critical care attestation.: If time is entered above; I have spent that time in minutes in the direct care of this critically ill patient, excluding procedure time. ED Disposition Clinical Impression: Chest pain, Uncontrolled hypertension Disposition: - TO HOME OR SELFCARE Is pt being admited?: No Condition: Stable Instructions: Nonspecific Chest Pain, Adult, Hypertension (ED) Referrals: PRIMARY CARE, [Primary Care Provider] - 3-5 Days Time of Disposition: 15:26
[2020-11-19 11:55] LABS: Basophils % (Auto) 0.6 % (0.0-1.8); Eosinophils # (Auto) 0.4 K/mm3 (0.0-0.4); Eosinophils % (Auto) 5.4 % (0.0-4.3); Hematocrit 37.3 % (35.5-45.6); Hemoglobin 12.7 gm/dl (11.8-15.2); Lymphocytes # (Auto) 1.6 K/mm3 (1.2-5.4); Lymphocytes % (Auto) 24.2 % (13.4-35.0); Mean Corpuscular HGB Conc 34 % (32-34); Mean Corpuscular Volume 86 fl (84-94); Monocytes # (Auto) 0.5 K/mm3 (0.0-0.8); Monocytes % (Auto) 7.2 % (0.0-7.3); Platelet Count 160 K/mm3 (140-440); Red Blood Count 4.35 M/mm3 (3.65-5.03); Red Cell Distribution Width 16.2 % (13.2-15.2)
[2020-11-19 12:06] LABS: INR 1.07 (0.87-1.13)
[2020-11-19 12:07] LABS: Partial Thromboplastin Time 33.5 Sec. (24.2-36.6)
[2020-11-19 12:13] LABS: BUN/Creatinine Ratio 14; Blood Urea Nitrogen 20 mg/dL (9-20); Calcium 9.3 mg/dL (8.4-10.2); Hemolysis Index 12
--- NOTE | 2020-11-19 12:19 | XRay Report ---
CHEST 1 VIEW INDICATION: chest pain. COMPARISON: 03/07/2020 FINDINGS: Support devices: None. Heart: Within normal limits. Lungs/Pleura: No acute air space or interstitial disease. Additional findings: None. IMPRESSION: No acute findings. No change since 03/07/2020. Signer Name: Pollo Castro Jr, MD Signed: 11/19/2020 11:27 AM Workstation Name: [id number]
--- NOTE | 2020-11-19 14:08 | Cat Scan Report ---
CTA CHEST WITH CONTRAST INDICATION : MAIN. TECHNIQUE: Axial imaging performed through the chest, with contrast bolus timing set to maximize opa cification of the pulmonary arteries. Sagittal and coronal reformatted images. 3-plane MIP reformatte d images were obtained. All CT scans at this location are performed using CT dose reduction for ALAR A by means of automated exposure control. 100 mL of intravenous contrast administered. COMPARISON: AP chest performed earlier today FINDINGS: Bolus: Contrast bolus timing is adequate. PTE: No filling defect is present to suggest PTE. Mediastinum: Heart and great vessels appear normal. No pathologic mediastinal adenopathy. Lungs: Lungs are clear. Bones: Degenerative changes in the spine with nothing acute. Upper abdomen: Limited imaging of the upper abdomen shows nothing acute. IMPRESSION: Negative for PTE. Clear lungs. Signer Name: Pollo Castro Jr, MD Signed: 11/19/2020 2:03 PM Workstation Name: [id number]
[2020-11-19 17:08] VITALS: BP 158/77
--- NOTE | 2020-11-20 11:40 | Electrocardiograph Report ---
[facility] Test Date: 2020-11-19 Test Time: 10:50:39 Pat Name: RYAN DÍAZ Department: Room: Gender: M Body Trimmer: FER : 1950 Requested By: FRANCOIS HINDS Order Number: [id number] Reading MD: Magdalena Ferro Measurements Intervals [place] Rate: 80 P: 49 SC: 187 QRS: 5 QRSD: 90 T: 189 QT: 411 QTc: 474 Interpretive Statements Sinus rhythm Probable left atrial enlargement Inferior infarct, old Nonspecific T abnormalities, lateral leads No previous ECG available for comparison Electronically Signed On 11-20-2020 11:40:54 EDT by Magdalena Ferro
== END 2020-11-19 17:09 | disposition home or self-care (01) ==
LOC: ED 10:40
DX: I11.0 Hypertensive heart disease with heart failure (principal); I50.9 Heart failure, unspecified; R07.9 Chest pain, unspecified; I25.10 Atherosclerotic heart disease of native coronary artery without angina pectoris; J44.9 Chronic obstructive pulmonary disease, unspecified; E78.00 Pure hypercholesterolemia, unspecified; Z79.899 Other long term (current) drug therapy; Z98.890 Other specified postprocedural states
CPT/HCPCS: 36415; 71045; 71275; 80048; 83880; 84484; 85025; 85610; 85730; 93005; 96374; 96376; 99285; Q9967

== ENCOUNTER 2020-12-01 08:06 | Observation (INO) | payer MEDICARE ==
--- NOTE | 2020-12-01 08:24 | Emergency Department Report ---
ED Chest Pain HPI - General Chief Complaint: Chest Pain Stated Complaint: CHEST PAIN Time Seen by Provider: 12/01/20 08:20 Source: EMS Mode of arrival: Ambulatory Limitations: No Limitations - History of Present Illness Initial Comments: Patient is 70 years old male with history of coronary artery disease with a stent in the past, chronic kidney disease, congestive heart failure, hypertension and [id number]-[id number] amputation on the right side. Patient brought to the emergency room via EMS from home for evaluation of substernal chest pain, pressure with no radiation. Patient stated that pain started last night. Patient stated that he took his nitro with some improvement. EMS gave patient aspirin and nitro. Patient stated that he still having some pain. Patient denied any shortness of breath, fever or chills. No cough. MD Complaint: chest pain -: Last night Onset: during rest Pain Location: substernal Pain Radiation: none Severity: moderate Quality: tightness, heaviness - Related Data Home Medications Medication Instructions Recorded Confirmed Last Taken AtorvaSTATin [Lipitor] 40 mg PO QHS 11/19/20 11/19/20 Unknown Furosemide [Lasix TAB] 40 mg PO QDAY 11/19/20 11/19/20 Unknown NIFEdipine [Nifedipine ER] 60 mg PO QDAY 11/19/20 11/19/20 Unknown Nitroglycerin [Nitrostat] 0.4 mg SL Q5M PRN 11/19/20 11/19/20 Unknown carvediloL [Coreg] 25 mg PO BID 11/19/20 11/19/20 Unknown hydroCHLOROthiazide [HCTZ] 25 mg PO QDAY 11/19/20 11/19/20 Unknown lisinopriL [Zestril TAB] 40 mg PO QDAY 11/19/20 11/19/20 Unknown Allergies Allergy/AdvReac Type Severity Reaction Status Date / Time No Known Allergies Allergy Verified 04/15/14 18:09 Heart Score - HEART Score History: Moderately suspicious EKG: Non-specific Age: > 65 Risk factors: > 3 risk factors or hx of atherosclerotic disease Troponin: < normal limit HEART Score: 6 - EKG Read Time Time EKG Completed: 08:29 EKG Read Time: 08:29 - Critical Actions Critical Actions: 4-6 pts:12-16.6% risk of adverse cardiac event. Should be admitted ED Review of Systems ROS: Stated complaint: CHEST PAIN Other details as noted in HPI Comment: All other systems reviewed and negative Constitutional: denies: chills, fever Respiratory: denies: cough, shortness of breath, SOB with exertion, SOB at rest Cardiovascular: chest pain. denies: palpitations Gastrointestinal: denies: abdominal pain, nausea, vomiting Neurological: denies: headache, weakness ED Past Medical Hx - Past Medical History Hx Hypertension: Yes Hx Heart Attack/AMI: No Hx Congestive Heart Failure: Yes Hx Diabetes: No Hx Deep Vein Thrombosis: No Hx Asthma: Yes Hx COPD: Yes Additional medical history: High Cholesterol. angina/cardiac stents - Surgical History Hx Coronary Stent: Yes Hx Pacemaker: No Hx Internal Defibrillator: No Additional Surgical History: Rt BKA. Cardiac Stents placed - Social History Smoking Status: Never Smoker - Medications Home Medications: Home Medications Medication Instructions Recorded Confirmed Last Taken Type AtorvaSTATin [Lipitor] 40 mg PO QHS 11/19/20 11/19/20 Unknown History Furosemide [Lasix TAB] 40 mg PO QDAY 11/19/20 11/19/20 Unknown History NIFEdipine [Nifedipine ER] 60 mg PO QDAY 11/19/20 11/19/20 Unknown History Nitroglycerin [Nitrostat] 0.4 mg SL Q5M PRN 11/19/20 11/19/20 Unknown History carvediloL [Coreg] 25 mg PO BID 11/19/20 11/19/20 Unknown History hydroCHLOROthiazide [HCTZ] 25 mg PO QDAY 11/19/20 11/19/20 Unknown History lisinopriL [Zestril TAB] 40 mg PO QDAY 11/19/20 11/19/20 Unknown History ED Physical Exam - General Limitations: No Limitations General appearance: alert, in no apparent distress - Head Head exam: Present: atraumatic, normocephalic, normal inspection - Eye Eye exam: Present: normal appearance - ENT ENT exam: Present: normal exam, normal orophraynx, mucous membranes moist - Neck Neck exam: Present: normal inspection, full ROM. Absent: tenderness, meningismus - Respiratory Respiratory exam: Present: normal lung sounds bilaterally - Cardiovascular Cardiovascular Exam: Present: regular rate, normal rhythm, normal heart sounds - GI/Abdominal GI/Abdominal exam: Present: soft, normal bowel sounds. Absent: distended, tenderness, guarding, rebound, rigid, mass, bruit, pulsatile mass, hernia - Extremities Exam Extremities exam: Present: normal inspection, full ROM, normal capillary refill. Absent: tenderness - Back Exam Back exam: Present: normal inspection, full ROM. Absent: CVA tenderness (R), CVA tenderness (L) - Neurological Exam Neurological exam: Present: alert, oriented X3, CN II-XII intact - Psychiatric Psychiatric exam: Present: normal mood - Skin Skin exam: Present: warm, intact, normal color ED Course Vital Signs 12/01/20 12/01/20 12/01/20 08:15 08:17 08:30 Temperature 97.7 F Pulse Rate 90 84 Respiratory 21 14 17 Rate Blood Pressure 172/78 172/78 172/78 O2 Sat by Pulse 98 Oximetry 12/01/20 12/01/20 12/01/20 08:45 09:00 09:06 Temperature Pulse Rate 83 84 85 Respiratory 18 21 Rate Blood Pressure 194/95 183/85 O2 Sat by Pulse Oximetry VICKI score - Vicki Score Age > 65: (1) Yes Aspirin use within the Past 7 Days: (1) Yes 3 or more CAD Risk Factors: (1) Yes 2 or more Angina events in past 24 hrs: (0) No Known CAD with more than 50% Stenosis: (1) Yes Elevated Cardiac Markers: (0) No ST Deviation Greater than 0.5mm: (1) Yes VICKI Score: 5 ED Medical Decision Making - Lab Data Result diagrams: 12/01/20 08:39 12/01/20 08:39 - EKG Data -: EKG Interpreted by Oh EKG shows normal: sinus rhythm Rate: normal - EKG Data Interpretation: no acute changes - Radiology Data Radiology results: report reviewed - Medical Decision Making Patient is 70 years old male with history of coronary artery disease with a stent in the past, chronic kidney disease, congestive heart failure, hypertension and kxfmz-[id number] amputation on the right side. Patient brought to the emergency room via EMS from home for evaluation of substernal chest pain, pressure with no radiation. Patient stated that pain started last night. Patient stated that he took his nitro with some improvement. EMS gave patient aspirin and nitro. Patient stated that he still having some pain. Patient denied any shortness of breath, fever or chills. No cough. EKG showed no ST elevation. Labs reviewed and is unremarkable including a negative morning. Chest x-ray is unremarkable. Patient received aspirin, nitro, morphine and Zofran. Patient stated that her chest pain is better. I discussed the patient with Dr. Estrada, she agreed to admit the patient to medical service for further management. Critical care attestation.: If time is entered above; I have spent that time in minutes in the direct care of this critically ill patient, excluding procedure time. ED Disposition Clinical Impression: Acute chest pain Disposition: OP ADMIT IP TO THIS HOSP Is pt being admited?: Yes Condition: Stable Instructions: Chest Pain (ED) Referrals: PRIMARY CARE, [Primary Care Provider] - 3-5 Days
[2020-12-01 08:48] LABS: Basophils # (Auto) 0.1 K/mm3 (0.0-0.1); Basophils % (Auto) 0.5 % (0.0-1.8); Eosinophils # (Auto) 0.1 K/mm3 (0.0-0.4); Eosinophils % (Auto) 1.1 % (0.0-4.3); Hematocrit 37.4 % (35.5-45.6); Hemoglobin 12.5 gm/dl (11.8-15.2); Lymphocytes # (Auto) 1.6 K/mm3 (1.2-5.4); Lymphocytes % (Auto) 15.2 % (13.4-35.0); Mean Corpuscular HGB Conc 34 % (32-34); Mean Corpuscular Volume 87 fl (84-94); Monocytes # (Auto) 1.1 K/mm3 (0.0-0.8); Monocytes % (Auto) 10.9 % (0.0-7.3); Platelet Count 179 K/mm3 (140-440); Red Blood Count 4.29 M/mm3 (3.65-5.03); Red Cell Distribution Width 16.5 % (13.2-15.2)
--- NOTE | 2020-12-01 08:49 | XRay Report ---
CHEST 1 VIEW 12/01/2020 7:41 AM INDICATION / CLINICAL INFORMATION: Chest Pain. COMPARISON: 11/19/20 FINDINGS: SUPPORT DEVICES: None. HEART / MEDIASTINUM: Heart is upper normal size. Mild atherosclerotic calcification of the thoracic a jeff is unchanged. LUNGS / PLEURA: No significant pulmonary or pleural abnormality. No pneumothorax. ADDITIONAL FINDINGS: No significant additional findings. IMPRESSION: 1. No acute findings. No change. Signer Name: Sarmad Stacy MD Signed: 12/01/2020 8:45 AM Workstation Name: [id number]
[2020-12-01 08:58] LABS: INR 1.11 (0.87-1.13)
[2020-12-01 08:59] LABS: Partial Thromboplastin Time 40.1 Sec. (24.2-36.6)
[2020-12-01 09:13] LABS: Alanine Aminotransferase 17 units/L (7-56); Albumin 4.1 g/dL (3.9-5); BUN/Creatinine Ratio 22; Bilirubin,Direct 0.2 mg/dL (0-0.2); Blood Urea Nitrogen 33 mg/dL (9-20); Calcium 9.5 mg/dL (8.4-10.2); Hemolysis Index 13
[2020-12-01] MEDS ORDERED: ACETAMINOPHEN 500 MG TAB PO ONE (09:13)
[2020-12-01] MEDS ORDERED: MORPHINE 4 MG/1 ML INJ ONE (09:20)
[2020-12-01] MEDS ORDERED: ONDANSETRON 4 MG/2 ML INJ IV ONE (09:20)
[2020-12-01] MEDS ORDERED: ONDANSETRON 4 MG/2 ML INJ ONE (09:20)
[2020-12-01] MEDS ORDERED: MORPHINE 4 MG/1 ML INJ IV ONE (09:20)
[2020-12-01] MEDS ORDERED: NITROGLYCERIN 0.4 MG TAB SUBL SL PRN (13:22)
--- NOTE | 2020-12-01 13:22 | History and Physical Report ---
History of Present Illness Date of examination: 12/01/20 Date of admission: 12/01/20 10:38 Chief complaint: Chest pain History of present illness: Patient is 70 years old male with history of coronary artery disease with a stent in the past, chronic kidney disease, congestive heart failure, hypertension and [id number] amputation on the right side. Patient brought to the emergency room via EMS from home for evaluation of substernal chest pain, pressure with no radiation. Patient stated that pain started last night. Patient stated that he took his nitro with some improvement. EMS gave patient aspirin and nitro. Patient stated that he still having some pain. Patient denied any shortness of breath, fever or chills. No cough. Past History Past Medical History: CAD, heart failure, hypertension, hyperlipidemia, other (Nonischemic cardiomyopathy) Past Surgical History: Other (Right AKA) Social history: full code. denies: smoking, alcohol abuse, prescription drug abuse Family history: no significant family history Medications and Allergies Allergies Allergy/AdvReac Type Severity Reaction Status Date / Time No Known Allergies Allergy Verified 04/15/14 18:09 Home Medications Medication Instructions Recorded Confirmed Last Taken Type AtorvaSTATin [Lipitor] 40 mg PO QHS 11/19/20 11/19/20 Unknown History Furosemide [Lasix TAB] 40 mg PO QDAY 11/19/20 11/19/20 Unknown History NIFEdipine [Nifedipine ER] 60 mg PO QDAY 11/19/20 11/19/20 Unknown History Nitroglycerin [Nitrostat] 0.4 mg SL Q5M PRN 11/19/20 11/19/20 Unknown History carvediloL [Coreg] 25 mg PO BID 11/19/20 11/19/20 Unknown History hydroCHLOROthiazide [HCTZ] 25 mg PO QDAY 11/19/20 11/19/20 Unknown History lisinopriL [Zestril TAB] 40 mg PO QDAY 11/19/20 11/19/20 Unknown History Review of Systems Constitutional: weakness, no weight loss, no weight gain Ears, nose, mouth and throat: no nasal congestion, no nasal discharge Cardiovascular: chest pain, lightheadedness, shortness of breath, no orthopnea, no palpitations, no rapid/irregular heart beat Respiratory: shortness of breath, no cough, no cough with sputum Gastrointestinal: no abdominal pain, no nausea, no vomiting Genitourinary Male: no dysuria, no hematuria Musculoskeletal: no myalgias, no arthritis Integumentary: no rash, no lesions Neurological: no seizures, no syncope Psychiatric: no anxiety, no depression Endocrine: no cold intolerance, no heat intolerance, no polydipsia, no polyuria Hematologic/Lymphatic: no easy bruising, no easy bleeding Allergic/Immunologic: no urticaria, no allergic rhinitis Exam - Constitutional Vitals: Temp Pulse Resp BP Pulse Ox 97.7 F 72 15 186/84 98 12/01/20 08:17 12/01/20 11:30 12/01/20 11:30 12/01/20 11:30 12/01/20 08:17 General appearance: Present: mild distress, well-nourished - EENT Eyes: Present: PERRL, EOM intact - Neck Neck: Present: supple, normal ROM - Respiratory Respiratory effort: normal Respiratory: bilateral: diminished, rales, negative: rhonchi, wheezing - Cardiovascular Rhythm: regular Heart Sounds: Present: S1 & S2 - Extremities Extremities: no ischemia, No edema, abnormal (Right AKA) - Abdominal General gastrointestinal: Present: soft, non-tender, non-distended, normal bowel sounds - Integumentary Integumentary: Present: clear, warm - Musculoskeletal Musculoskeletal: strength equal bilaterally, generalized weakness - Psychiatric Psychiatric: appropriate mood/affect, cooperative HEART Score - HEART Score EKG: Non-specific Age: > 65 Risk factors: > 3 risk factors or hx of atherosclerotic disease Troponin: Troponin T < 0.010 ng/mL (0.00-0.029) 12/01/20 08:39 Troponin: < normal limit - Critical Actions Critical Actions: 4-6 pts:12-16.6% risk of adverse cardiac event. Should be admitted Results - Labs CBC & Chem 7: 12/01/20 08:39 12/01/20 08:39 Labs: Abnormal lab results 12/01/20 12/01/20 12/01/20 Range/Units 08:39 08:39 08:39 RDW 16.5 H (13.2-15.2) % [place] % (Auto) 10.9 H (0.0-7.3) % [place] # (Auto) 1.1 H (0.0-0.8) K/mm3 Seg Neutrophils % 72.3 H (40.0-70.0) % APTT 40.1 H (24.2-36.6) Sec. Potassium 3.5 L (3.6-5.0) mmol/L BUN 33 H (9-20) mg/dL Creatinine 1.5 H (0.8-1.3) mg/dL Glucose 127 H (75-100) mg/dL Total Protein 8.6 H (6.3-8.2) g/dL Assessment and Plan --Chest pain; evaluate for acute coronary syndrome Serial cardiac enzymes Aspirin, beta-blockers, GIBSON inhibitors, nitrates and statins Morphine as needed EKG as needed for chest pain Echocardiogram for LV function ejection fraction Cardiology evaluation --Hypertension; moderate control Continue current hypertensives and as needed medications --Dilated cardiomyopathy; EF 20 to 25%; Continue antifailure medications, input output monitoring low-sodium diet , Fluid restrictions. Daily weights Cardiology consult --Acute on chronic systolic congestive heart failure; Continue antifailure medications, supportive care --Acute kidney injury; vasomotor nephropathy Probably due to diuretics, monitor renal function, avoid nephrotoxins Adjust diuretic dose gentle hydration if needed --Dyslipidemia; Statin, low-cholesterol diet --Peripheral vascular disease; status post right AKA Supportive care --DVT prophylaxis; Lovenox --Full CODE STATUS Closely monitor the patient and adjust management as needed Plan of care reviewed with the patient and his nurse 12/01/2020 Admitted with chest pain Cardiology consulted Stress test tomorrow N.p.o. from midnight
[2020-12-01] MEDS ORDERED: ACETAMINOPHEN 325 MG TAB PO PRN (16:54)
[2020-12-01] MEDS: MORPHINE 2 MG/1 ML INJ IV PRN (18:18)
[2020-12-01] MEDS: carvediloL 25 MG TAB PO SCH (22:28)
[2020-12-02] MEDS: MORPHINE 2 MG/1 ML INJ IV PRN (00:08)
[2020-12-02] MEDS: ZOLPIDEM 5 MG TAB PO PRN ×2 (00:09→22:11)
[2020-12-02] MEDS ORDERED: REGADENOSON 0.4 MG/5 ML INJ IV ONE ×2 (09:16→09:34)
[2020-12-02] MEDS ORDERED: FUROSEMIDE 40 MG TAB PO SCH (10:00)
[2020-12-02] MEDS ORDERED: PANTOPRAZOLE 40 MG INJ IV SCH (10:00)
[2020-12-02] MEDS ORDERED: ENOXAPARIN 30 MG/0.3 ML INJ SUB-Q SCH (10:00)
[2020-12-02] MEDS: carvediloL 25 MG TAB PO SCH ×2 (12:24→22:12)
[2020-12-02] MEDS: PANTOPRAZOLE 40 MG TAB PO SCH (12:24)
[2020-12-02] MEDS: FUROSEMIDE 40 MG/4 ML INJ IV SCH ×2 (12:24→12:26)
[2020-12-02] MEDS: ASPIRIN 81 MG TAB CHEW PO SCH (12:24)
[2020-12-02] MEDS: NIFEdipine XL 60 MG TAB PO SCH (12:25)
[2020-12-02] MEDS: hydroCHLOROthiazide 25 MG TAB PO SCH (12:25)
[2020-12-02] MEDS: LISINOPRIL 40 MG TAB PO SCH (12:25)
[2020-12-02] MEDS: ENOXAPARIN 40 MG/0.4 ML INJ SUB-Q SCH (12:25)
--- NOTE | 2020-12-02 14:14 | Progress Note ---
History Interval history: Patient is 70 years old male with history of coronary artery disease with a stent in the past, chronic kidney disease, congestive heart failure, hypertension and [id number] amputation on the right side. Patient brought to the emergency room via EMS from home for evaluation of substernal chest pain, pressure with no radiation. Patient stated that pain started last night. Patient stated that he took his nitro with some improvement. EMS gave patient aspirin and nitro. Patient stated that he still having some pain. Patient denied any shortness of breath, fever or chills. No cough. Patient was placed on observation for stress test. Cardiology also consulted due to history of coronary artery disease. [facility] - Physical exam Narrative exam: VITAL SIGNS: Reviewed. GENERAL: Awake HEAD: No signs of head trauma. EYES: Pupils are equal. Extraocular motions intact. MOUTH: Oropharynx is normal. NECK: No adenopathy, no JVD. CHEST: Chest with diminished breath sounds bilaterally. No wheezes, rales, or rhonchi. CARDIAC: normal S1 and S2, without murmurs, gallops, or rubs. ABDOMEN: Soft, non tender and non distended. No rebound or guarding, and no masses palpated. Bowel Sounds normal. MUSCULOSKELETAL: No edema NEUROLOGIC EXAM: Alert and oriented x3. No focal neurologic deficits SKIN: No obvious lesions - Constitutional Vitals: Temp Pulse Resp BP Pulse Ox 99.2 F 93 H 20 97/43 93 12/02/20 07:37 12/02/20 12:24 12/02/20 10:40 12/02/20 12:24 12/02/20 12:20 HEART Score - HEART Score EKG: Non-specific Age: > 65 Risk factors: > 3 risk factors or hx of atherosclerotic disease Troponin: Troponin T < 0.010 ng/mL (0.00-0.029) 12/01/20 15:05 Troponin: < normal limit - Critical Actions Critical Actions: 4-6 pts:12-16.6% risk of adverse cardiac event. Should be admitted Results - Labs CBC & Chem 7: 12/01/20 08:39 12/01/20 08:39 Labs: Laboratory Last Values WBC 10.3 K/mm3 (4.5-11.0) 12/01/20 08:39 RBC 4.29 M/mm3 (3.65-5.03) 12/01/20 08:39 Hgb 12.5 gm/dl (11.8-15.2) 12/01/20 08:39 Hct 37.4 % (35.5-45.6) 12/01/20 08:39 MCV 87 fl (84-94) 12/01/20 08:39 MCH 29 pg (28-32) 12/01/20 08:39 MCHC 34 % (32-34) 12/01/20 08:39 RDW 16.5 % (13.2-15.2) H 12/01/20 08:39 Plt Count 179 K/mm3 (140-440) 12/01/20 08:39 Lymph % (Auto) 15.2 % (13.4-35.0) 12/01/20 08:39 [place] % (Auto) 10.9 % (0.0-7.3) H 12/01/20 08:39 Eos % (Auto) 1.1 % (0.0-4.3) 12/01/20 08:39 Baso % (Auto) 0.5 % (0.0-1.8) 12/01/20 08:39 Lymph # (Auto) 1.6 K/mm3 (1.2-5.4) 12/01/20 08:39 [place] # (Auto) 1.1 K/mm3 (0.0-0.8) H 12/01/20 08:39 Eos # (Auto) 0.1 K/mm3 (0.0-0.4) 12/01/20 08:39 Baso # (Auto) 0.1 K/mm3 (0.0-0.1) 12/01/20 08:39 Seg Neutrophils % 72.3 % (40.0-70.0) H 12/01/20 08:39 Seg Neutrophils # 7.5 K/mm3 (1.8-7.7) 12/01/20 08:39 PT 14.1 Sec. (12.2-14.9) 12/01/20 08:39 INR 1.11 (0.87-1.13) 12/01/20 08:39 APTT 40.1 Sec. (24.2-36.6) H 12/01/20 08:39 Sodium 138 mmol/L (137-145) 12/01/20 08:39 Potassium 3.5 mmol/L (3.6-5.0) L 12/01/20 08:39 Chloride 99.7 mmol/L (98-107) 12/01/20 08:39 Carbon Dioxide 27 mmol/L (22-30) 12/01/20 08:39 Anion Gap 15 mmol/L 12/01/20 08:39 BUN 33 mg/dL (9-20) H 12/01/20 08:39 Creatinine 1.5 mg/dL (0.8-1.3) H 12/01/20 08:39 Estimated GFR 56 ml/min 12/01/20 08:39 BUN/Creatinine Ratio 22 % 12/01/20 08:39 Glucose 127 mg/dL (75-100) H 12/01/20 08:39 Calcium 9.5 mg/dL (8.4-10.2) 12/01/20 08:39 Total Bilirubin 0.90 mg/dL (0.1-1.2) 12/01/20 08:39 Direct Bilirubin 0.2 mg/dL (0-0.2) 12/01/20 08:39 Indirect Bilirubin 0.7 mg/dL 12/01/20 08:39 AST 14 units/L (5-40) 12/01/20 08:39 ALT 17 units/L (7-56) 12/01/20 08:39 Alkaline Phosphatase 89 units/L (35-129) 12/01/20 08:39 Troponin T < 0.010 ng/mL (0.00-0.029) 12/01/20 15:05 Total Protein 8.6 g/dL (6.3-8.2) H 12/01/20 08:39 Albumin 4.1 g/dL (3.9-5) 12/01/20 08:39 Albumin/Globulin Ratio 0.9 % 12/01/20 08:39 Lipase 21 units/L (13-60) 12/01/20 08:39 Jarrett/IV: Voiding Method Urinal Active Medications - Current Medications Current Medications: Generic Name Dose Route Start Last Admin Trade Name Freq PRN Reason Stop Dose Admin Acetaminophen 650 mg 12/01/20 16:54 12/02/20 10:40 Acetaminophen 325 Mg Tab PO 650 mg Q4H PRN Administration Pain, Mild (1-3) Aspirin 81 mg 12/02/20 10:00 12/02/20 12:24 Aspirin 81 Mg Tab Chew PO 81 mg QDAY SIRI Administration Atorvastatin Calcium 40 mg 12/01/20 22:00 12/01/20 22:28 Atorvastatin 40 Mg Tab PO 40 mg QHS SIRI Administration Carvedilol 25 mg 12/01/20 22:00 12/02/20 12:24 Carvedilol 25 Mg Tab PO 25 mg BID SIRI Administration Enoxaparin Sodium 40 mg 12/02/20 10:00 12/02/20 12:25 Enoxaparin 40 Mg/0.4 Ml Inj SUB-Q 40 mg QDAY@1000 [facility] Administration Protocol Furosemide 40 mg 12/02/20 10:00 12/02/20 12:26 Furosemide 40 Mg/4 Ml Inj IV Not Given QDAY [facility] Hydrochlorothiazide 25 mg 12/02/20 10:00 12/02/20 12:25 Hydrochlorothiazide 25 Mg Tab PO Not Given QDAY [facility] Lisinopril 40 mg 12/02/20 10:00 12/02/20 12:25 Lisinopril 40 Mg Tab PO Not Given QDAY [facility] Morphine Sulfate 2 mg 12/01/20 16:53 12/02/20 00:08 Morphine 2 Mg/1 Ml Inj IV 2 mg Q4H PRN Administration Pain, Moderate (4-6) Nifedipine 60 mg 12/02/20 10:00 12/02/20 12:25 Nifedipine Xl 60 Mg Tab PO Not Given QDAY [facility] Nitroglycerin 0.4 mg 12/01/20 13:22 Nitroglycerin 0.4 Mg Tab Subl SL Q5M PRN Chest Pain Pantoprazole Sodium 40 mg 12/02/20 10:00 12/02/20 12:24 Pantoprazole 40 Mg Tab PO 40 mg DAILY SIRI Administration Zolpidem Tartrate 5 mg 12/01/20 16:54 12/02/20 00:09 Zolpidem 5 Mg Tab PO 5 mg QHS PRN Administration Sleep Nutrition/Malnutrition Assess - Dietary Evaluation Nutrition/Malnutrition Findings: Nutrition Notes Start: 12/02/20 11:53 Freq: Status: Active Protocol: Document 12/02/20 11:53 GUILLERMINA (Rec: 12/02/20 12:00 GUILLERMINA [email or web address]) Nutrition Notes Need for Assessment generated from: ambulatory analyst Initial or Follow up Brief Note Current Diagnosis Acute Kidney Injury,Coronary Artery Disease,Hypertension, Heart Failure,Hyperlipidemia Other Pertinent Diagnosis chest pain, hx of R BKA Current Diet NPO Subjective/Other Information RN screen for skin risk. Kyaw score 16. Pt not in room at time of visit x2. Nutrition Intervention Follow-Up By: 12/03/20 Additional Comments FU for intakes
[2020-12-02 14:22] LABS: Calcium 9.1 mg/dL (8.4-10.2); Chol/HDL Ratio 4.73 %
--- NOTE | 2020-12-02 14:25 | Consultation ---
History of Present Illness Consult date: 12/02/20 Consult reason: chest pain History of present illness: This is a 70-year old M with a history of coronary artery disease. A cardiac catheterization done 8 months ago showed ostial stenosis of the small caliber circumflex artery, recommended for medical therapy. Otherwise, diffuse non- obstructive small vessel disease. Ejection fraction 20-25%. Co-morbidities includes hypertension, and peripheral arterial disease status post right below- knee amputation. Patient presents to this hospital with chest pain. Chest pain is poorly characterized, non-exertional. No shortness of breath and no palpitation. Chest x-ray reports no acute findings. An ECG is sinus rhythm with non-specific T wave abnormalities. Patient was admitted by the hospitalist team and ordered to undergo an echocardiogram and stress thallium test today. Cardiology consultati on was requested. Past History Past Medical History: CAD, heart failure, hypertension, hyperlipidemia, other (Nonischemic cardiomyopathy) Past Surgical History: Other (Right AKA) Social history: full code. denies: smoking, alcohol abuse, prescription drug abuse Family history: no significant family history Medications and Allergies Allergies Allergy/AdvReac Type Severity Reaction Status Date / Time No Known Allergies Allergy Verified 04/15/14 18:09 Home Medications Medication Instructions Recorded Confirmed Last Taken Type AtorvaSTATin [Lipitor] 40 mg PO QHS 11/19/20 11/19/20 Unknown History Furosemide [Lasix TAB] 40 mg PO QDAY 11/19/20 11/19/20 Unknown History NIFEdipine [Nifedipine ER] 60 mg PO QDAY 11/19/20 11/19/20 Unknown History Nitroglycerin [Nitrostat] 0.4 mg SL Q5M PRN 11/19/20 11/19/20 Unknown History carvediloL [Coreg] 25 mg PO BID 11/19/20 11/19/20 Unknown History hydroCHLOROthiazide [HCTZ] 25 mg PO QDAY 11/19/20 11/19/20 Unknown History lisinopriL [Zestril TAB] 40 mg PO QDAY 11/19/20 11/19/20 Unknown History Active Meds: Active Medications Acetaminophen (Acetaminophen 325 Mg Tab) 650 mg PO Q4H PRN PRN Reason: Pain, Mild (1-3) Last Admin: 12/02/20 10:40 Dose: 650 mg Documented by: Aspirin (Aspirin 81 Mg Tab Chew) 81 mg PO QDAY [facility] Last Admin: 12/02/20 12:24 Dose: 81 mg Documented by: Atorvastatin Calcium (Atorvastatin 40 Mg Tab) 40 mg PO QHS [facility] Last Admin: 12/01/20 22:28 Dose: 40 mg Documented by: Carvedilol (Carvedilol 25 Mg Tab) 25 mg PO BID [facility] Last Admin: 12/02/20 12:24 Dose: 25 mg Documented by: Enoxaparin Sodium (Enoxaparin 40 Mg/0.4 Ml Inj) 40 mg SUB-Q QDAY@1000 [facility]; Protocol Last Admin: 12/02/20 12:25 Dose: 40 mg Documented by: Furosemide (Furosemide 40 Mg/4 Ml Inj) 40 mg IV QDAY [facility] Last Admin: 12/02/20 12:26 Dose: Not Given Documented by: Hydrochlorothiazide (Hydrochlorothiazide 25 Mg Tab) 25 mg PO QDAY [facility] Last Admin: 12/02/20 12:25 Dose: Not Given Documented by: Lisinopril (Lisinopril 40 Mg Tab) 40 mg PO QDAY [facility] Last Admin: 12/02/20 12:25 Dose: Not Given Documented by: Morphine Sulfate (Morphine 2 Mg/1 Ml Inj) 2 mg IV Q4H PRN PRN Reason: Pain, Moderate (4-6) Last Admin: 12/02/20 00:08 Dose: 2 mg Documented by: Nifedipine (Nifedipine Xl 60 Mg Tab) 60 mg PO QDAY [facility] Last Admin: 12/02/20 12:25 Dose: Not Given Documented by: Nitroglycerin (Nitroglycerin 0.4 Mg Tab Subl) 0.4 mg SL Q5M PRN PRN Reason: Chest Pain Pantoprazole Sodium (Pantoprazole 40 Mg Tab) 40 mg PO DAILY [facility] Last Admin: 12/02/20 12:24 Dose: 40 mg Documented by: Zolpidem Tartrate (Zolpidem 5 Mg Tab) 5 mg PO QHS PRN PRN Reason: Sleep Last Admin: 12/02/20 00:09 Dose: 5 mg Documented by: Review of Systems Cardiovascular: chest pain, no palpitations, no edema, no shortness of breath Physical Examination Vital Signs Resp BP 21 172/78 12/01/20 08:15 12/01/20 08:15 General appearance: no acute distress HEENT: Positive: PERRL Neck: Positive: trachea midline Cardiac: Positive: Reg Rate and Rhythm Lungs: Positive: Decreased Breath Sounds Neuro: Positive: Grossly Intact, Other (right BKA) Results 12/01/20 08:39 12/01/20 08:39 Assessment and Plan - Patient Problems (1) Chest pain Current Visit: No Status: Acute Plan to address problem: A cardiac catheterization done 8 months ago showed ostial stenosis of the small caliber circumflex artery, recommended for medical therapy. Otherwise, diffuse non-obstructive small vessel disease. Ejection fraction 20-25%. Continue guideline directed medical therapy for nonischemic cardiomyopathy and small vessel coronary artery disease. Echocardiogram and stress thallium test completed today. Results are pending.
--- NOTE | 2020-12-02 17:51 | Nuclear Medicine Report ---
APPROVED REPORT Exam: Nuclear Stress Test Indication: Chest pain BMI: 0 Stress Test Details Stress Test: Pharmacologic stress testing performed using 0.4 mg of regadenoson per 5 mL given IV over 10 seconds. HR Resting HR: 92 bpmMax Heart Rate (APMHR): 150 bpm Max HR Achieved: 109 bpmTarget HR (85% APMHR): 127 bpm % of APMHR: 72 Recovery HR: 104 bpm HR response to stress: Normal HR response to stress BP Resting BP: 171/76 mmHg Max BP: 171/76 mmHg Recovery BP: 108/50 mmHg BP response to stress: Normal blood pressure response to stress. ECG Resting ECG: Sinus Rhythm Stress ECG: Sinus Tachycardia ST Change: None Arrhythmia: None Recovery ECG: Sinus Rhythm Recovery ST Change: None Recovery Arrhythmia: None Stress ECG Conclusion No ST changes of ischemia with pharmacologic stress testing, thallium images are pending for final test interpretation. NM EXAM: Myocardial Perfusion REST/STRESS Resting Data Rest SPECT myocardial perfusion imaging was performed in supine position 45 minutes following the intravenous injection of 10 mCi of Tc-99m Myoview. Time of rest injection: 0700 Pharmacologic Stress Pharmacologic stress test was performed by injecting Regadenoson 0.4 mg IV push followed by the intravenous injection of 28 mCi of Tc-99m Myoview. Time of stress injection: 1030 Gated Stress SPECT was performed 30 minutes after stress injection. Study Data TID = 1.01. Perfusion Nuclear Conclusion ECG Findings: negative for ischemia Clinical Findings: negative for ischemia Nuclear Findings: negative for ischemia Risk Study: moderate There is a small to medium sized, fixed inferior lateral defect of moderate intensity, no reversible ischemia. Gated study reports severe left ventricular systolic dysfunction with ejection fraction calculated at 29%. Clinical correlation is recommended. Conclusion No ST changes of ischemia with pharmacologic stress testing, thallium images are pending for final test interpretation.
--- NOTE | 2020-12-03 08:07 | Discharge Summary ---
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 Patient brought to the emergency room via EMS from home for evaluation of substernal chest pain, pressure with no radiation. Patient stated that pain started last night. Patient stated that he took his nitro with some improvement. EMS gave patient aspirin and nitro. Patient stated that he still having some pain. Patient denied any shortness of breath, fever or chills. No cough. Patient was placed on observation for stress test. Cardiology also consulted due to history of coronary artery disease. Patient scheduled for Lexiscan He had a lexiscan which showed no reversible ischemia. He will be discharged home to follow up with his chief technician x ray and PCP. He will continue his home medications Disposition: DC-01 TO HOME OR SELFCARE Final Discharge Diagnosis (Prints w/discharge instructions): Chest pain Time spent for discharge: 25 mins Core Measure Documentation - Palliative Care Palliative Care/ Comfort Measures: Not Applicable - Core Measures Any of the following diagnoses?: none Exam - Physical Exam Narrative exam: VITAL SIGNS: Reviewed. GENERAL: Awake HEAD: No signs of head trauma. EYES: Pupils are equal. Extraocular motions intact. MOUTH: Oropharynx is normal. NECK: No adenopathy, no JVD. CHEST: Chest with diminished breath sounds bilaterally. No wheezes, rales, or rhonchi. CARDIAC: normal S1 and S2, without murmurs, gallops, or rubs. ABDOMEN: Soft, non tender and non distended. No rebound or guarding, and no masses palpated. Bowel Sounds normal. MUSCULOSKELETAL: No edema NEUROLOGIC EXAM: Alert and oriented x3. No focal neurologic deficits SKIN: No obvious lesions - Constitutional Vitals: Temp Pulse Resp BP Pulse Ox 98.3 F 93 H 18 170/64 94 12/03/20 04:04 12/03/20 02:00 12/03/20 04:04 12/03/20 04:04 12/03/20 04:04 Plan Diet: low fat, low cholesterol, low salt Additional Instructions: Continue home medications. Follow up with PCP in 1 week. Follow up with cardiology in 1-2 weeks Follow up with: PRIMARY CARE, [Primary Care Provider] - 3-5 Days Prescriptions: Aspirin [Aspirin BABY CHEW TAB] 81 mg PO QDAY #60 tab.chew
[2020-12-03] MEDS: FUROSEMIDE 40 MG/4 ML INJ IV SCH (09:00)
[2020-12-03] MEDS: ENOXAPARIN 40 MG/0.4 ML INJ SUB-Q SCH (09:00)
[2020-12-03] MEDS: PANTOPRAZOLE 40 MG TAB PO SCH (09:00)
[2020-12-03] MEDS: ASPIRIN 81 MG TAB CHEW PO SCH (09:00)
[2020-12-03] MEDS: hydroCHLOROthiazide 25 MG TAB PO SCH (09:00)
[2020-12-03] MEDS: carvediloL 25 MG TAB PO SCH (09:00)
[2020-12-03] MEDS: NIFEdipine XL 60 MG TAB PO SCH (09:01)
[2020-12-03] MEDS: LISINOPRIL 40 MG TAB PO SCH (09:01)
--- NOTE | 2020-12-03 11:12 | Progress Note ---
Assessment and Plan - Patient Problems (1) Chest pain Current Visit: No Status: Acute Plan to address problem: A cardiac catheterization done 8 months ago showed ostial stenosis of the small caliber circumflex artery, recommended for medical therapy. Otherwise, diffuse non-obstructive small vessel disease. Ejection fraction 20-25%. Lexiscan thallium study this admission showed a fixed basal inferolateral defect, which appears to be consistent with his chronic circumflex disease, recommended for medical management. Recommendations. Continue guideline directed medical therapy for nonischemic cardiomyopathy and small vessel coronary artery disease. Stable cardiac mccauley for discharge. Patient advised to follow up with his primary marine design engineer, Dr Clemente, in 1-2 weeks. Subjective Date of service: 12/03/20 Interval history: Patient is resting in bed and appears comfortable. Denies chest pain and denies SOB. Objective Vital Signs Temp Pulse Resp BP Pulse Ox 12/03/20 09:01 91 H 147/72 12/03/20 09:00 91 H 147/72 12/03/20 04:04 98.3 F 18 170/64 94 12/03/20 02:00 93 H 12/02/20 23:09 98.5 F 88 18 148/76 100 12/02/20 22:12 89 130/49 12/02/20 22:00 18 12/02/20 19:40 98.5 F 89 18 130/49 97 12/02/20 18:37 83 12/02/20 16:34 98.2 F 89 18 119/62 95 12/02/20 12:29 88/51 12/02/20 12:24 93 H 97/43 12/02/20 12:20 92 H 97/43 93 12/02/20 12:00 101 H - Physical Examination General: No Apparent Distress HEENT: Positive: PERRL Neck: Positive: trachea midline Cardiac: Positive: Reg Rate and Rhythm Lungs: Positive: Decreased Breath Sounds Neuro: Positive: Grossly Intact, Other (right BKA) - Labs and Meds Lipids 12/02/20 Range/Units 13:41 Triglycerides 76 (2-149) mg/dL Cholesterol 218 H (50-199) mg/dL HDL Cholesterol 46 (40-59) mg/dL Cholesterol/HDL Ratio 4.73 % Comprehensive Metabolic Panel 12/02/20 Range/Units 13:41 Sodium 138 (137-145) mmol/L Potassium 3.4 L (3.6-5.0) mmol/L Chloride 95.3 L (98-107) mmol/L Carbon Dioxide 27 (22-30) mmol/L BUN 32 H (9-20) mg/dL Creatinine 1.5 H (0.8-1.3) mg/dL Glucose 123 H (75-100) mg/dL Calcium 9.1 (8.4-10.2) mg/dL
[2020-12-03 11:27] VITALS: BP 133/54
--- NOTE | 2020-12-04 10:29 | Electrocardiograph Report ---
[facility] Test Date: 2020-12-01 Test Time: 08:29:19 Pat Name: RYAN DÍAZ Department: Room: A476 Gender: M Blood Bank Laboratory Technologist: RENUKA : 1950 Requested By: NARGIS BENDER Order Number: [id number] Reading MD: Magdalena Ferro Measurements Intervals [place] Rate: 85 P: 24 MT: 170 QRS: 1 QRSD: 95 T: 152 QT: 374 QTc: 446 Interpretive Statements Sinus rhythm Probable left atrial enlargement Inferior infarct, old Nonspecific T abnormalities, lateral leads Compared to ECG 11/19/2020 10:50:39 No significant changes Electronically Signed On 12-04-2020 10:28:43 EDT by Magdalena Ferro
--- NOTE | 2020-12-04 10:42 | Treadmill Report ---
[facility] Test Date: 2020-12-02 Test Time: 10:32:51 Pat Name: RYAN DÍAZ Department: Room: A476 1 Gender: M Parts Inspector: Viviane Mon : 1950 Requested By: JUAN JOSE SOL Order Number: [id number] Reading MD: Magdalena Ferro Interpretive Statements See dictated report Electronically Signed On 12-04-2020 10:41:42 EDT by Magdalena Ferro
== END 2020-12-03 13:49 | disposition home or self-care (01) ==
LOC: ED 08:06 → 4A 10:38
PROVIDERS: ADMIT Internal Medicine; ATTEND Internal Medicine
DX: I11.0 Hypertensive heart disease with heart failure (principal); I50.23 Acute on chronic systolic (congestive) heart failure; N17.9 Acute kidney failure, unspecified; I42.0 Dilated cardiomyopathy; I25.10 Atherosclerotic heart disease of native coronary artery without angina pectoris; N17.0 Acute kidney failure with tubular necrosis; I73.9 Peripheral vascular disease, unspecified; J44.9 Chronic obstructive pulmonary disease, unspecified; R07.89 Other chest pain; E78.5 Hyperlipidemia, unspecified; E78.00 Pure hypercholesterolemia, unspecified; Z95.1 Presence of aortocoronary bypass graft; Z79.82 Long term (current) use of aspirin
CPT/HCPCS: 36415; 71045; 78452; 80048; 80061; 80076; 82962; 83690; 84484; 85025; 85610; 85730; 93005; 93017; 93306; 96372; 96374; 96375; 96376; 99285; A9270; A9502; G0378; J1650; J1940; J2270; J2405; J2785